=== PATIENT | female | born 2000 | race Hispanic/Latino ===

== ENCOUNTER 2019-11-17 21:04 | Emergency (ER) | payer OTHER, SELFPAY ==
[~2019-11-17] VITALS: Ht 162.6 cm; Wt 63.3 kg
[2019-11-17 21:45] LABS: BASO # 0.1 10^3/uL (0.0-0.2); BASO % 0.7 % (0.0-1.0); EOS # 0.4 10^3/uL (0.0-0.5); EOS % 5.8 % (0.0-3.0); HEMATOCRIT 37.4 % (36.0-47.0); HEMOGLOBIN 12.3 g/dl (12.0-15.5); LYMPH # 2.2 10^3/uL (1.5-5.0); LYMPH % 32.5 % (24.0-44.0); MEAN CORPUSCULAR HEMOGLOBIN 30.1 pg (27.0-33.0); MEAN CORPUSCULAR HGB CONC 32.9 g/dl (32.0-36.5); MEAN CORPUSCULAR VOLUME 91.4 fl (80.0-96.0); MONO # 0.4 10^3/uL (0.0-0.8); MONO % 5.4 % (0.0-5.0); NEUTROPHILS # 3.8 10^3/uL (1.5-8.5); NEUTROPHILS % 55.3 % (36.0-66.0); PLATELET COUNT, AUTOMATED 286 10^3/uL (150-450); RED BLOOD COUNT 4.09 10^6/uL (4.00-5.40); WHITE BLOOD COUNT 6.9 10^3/uL (4.0-10.0)
[2019-11-17] MEDS ORDERED: NS 1,000 ML IV ONE (21:45)
--- NOTE | 2019-11-17 21:53 | ECGEPIP ---
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
[2019-11-17 22:13] LABS: ALBUMIN 3.8 GM/DL (3.2-5.2); ALT/SGPT 34 U/L (12-78); BILIRUBIN,DIRECT < 0.1 MG/DL (0.0-0.2); BILIRUBIN,TOTAL 0.2 MG/DL (0.2-1.0); CK-MB VALUE MASS < 1.0 NG/ML (<3.6); CPK CREATINE PHOSPHOKINASE 61 U/L (26-192); FREE T4 1.13 NG/DL (0.78-1.33); LIPASE 118 U/L (73-393); MB/CK RELATIVE INDEX 1.64 (< OR =4); TOTAL PROTEIN 7.2 GM/DL (6.4-8.2); TROPONIN I < 0.02 NG/ML (< 0.10)
[2019-11-17 23:25] LABS: PARTIAL THROMBOPLASTIN TIME 30.3 SECONDS (25.0-38.4)
[2019-11-17 23:27] LABS: D-DIMER QUANT 371.05 ng/ml (<500)
[2019-11-17 23:28] LABS: INR 1.07; PROTHROMBIN TIME 13.6 SECONDS (11.8-14.0)
[2019-11-17] MEDS ORDERED: ONDA4TAB6 PO (23:51)
[2019-11-18 00:04] VITALS: BP 109/59
--- NOTE | 2019-11-18 08:33 | REP ---
Clinical: Chest pain . Comparison: None . Technique: PA and lateral. Findings: The mediastinum and cardiac silhouette are normal. The lung ye are clear and without acute consolidation, effusion, or pneumothorax. The skeletal structures are intact and normal. Impression: 1. No acute cardiopulmonary process. Electronically Signed by Jonathon Luna MD 11/18/2019 08:24 A
== END 2019-11-18 00:18 | disposition home or self-care (01) ==
LOC: M ED 21:04
DX: R10.9 Unspecified abdominal pain (principal); R11.2 Nausea with vomiting, unspecified; N64.4 Mastodynia; R00.0 Tachycardia, unspecified

== ENCOUNTER 2019-11-19 18:52 | Emergency (ER) | payer OTHER ==
[~2019-11-19] VITALS: Ht 162.6 cm; Wt 63.6 kg
[~2019-11-19 18:52] MED LIST: ONDA4TAB6 PO
[2019-11-19 18:53] VITALS: BP 111/68
== END 2019-11-19 19:58 | disposition left against medical advice (07) ==
LOC: M ED 18:52
DX: Z53.21 Procedure and treatment not carried out due to patient leaving prior to being seen by health care provider (principal)

== ENCOUNTER 2020-04-01 15:09 | Emergency (ER) | payer OTHER ==
[~2020-04-01] VITALS: Ht 162.6 cm; Wt 61.4 kg
[2020-04-01] MEDS ORDERED: LO LTAB PO (15:16)
--- NOTE | 2020-04-01 16:44 | REP ---
INDICATION: pain/swelling to lower extremities COMPARISON: None. TECHNIQUE: Real time compression and duplex Doppler interrogation of the bilateral lower extremity deep venous system is performed. FINDINGS: Bilaterally, the common femoral, superficial femoral and popliteal veins are fully compressible with transducer pressure and demonstrate normal spontaneous and phasic flow, without evidence of deep venous thrombosis. IMPRESSION: No evidence of deep venous thrombosis of the bilateral lower extremity femoral popliteal venous system. <Electronically signed by Ladarius Blakely > 04/01/20 1640
[2020-04-01 16:57] LABS: BASO % 0.8 % (0.0-1.0); EOS # 0.2 10^3/uL (0.0-0.5); EOS % 4.2 % (0.0-3.0); HEMATOCRIT 34.6 % (36.0-47.0); HEMOGLOBIN 11.4 g/dl (12.0-15.5); LYMPH # 1.7 10^3/uL (1.5-5.0); LYMPH % 33.2 % (24.0-44.0); MEAN CORPUSCULAR HEMOGLOBIN 29.8 pg (27.0-33.0); MEAN CORPUSCULAR HGB CONC 32.9 g/dl (32.0-36.5); MEAN CORPUSCULAR VOLUME 90.3 fl (80.0-96.0); MONO # 0.2 10^3/uL (0.0-0.8); MONO % 4.2 % (0.0-5.0); NEUTROPHILS # 2.9 10^3/uL (1.5-8.5); NEUTROPHILS % 57.4 % (36.0-66.0); PLATELET COUNT, AUTOMATED 234 10^3/uL (150-450); RED BLOOD COUNT 3.83 10^6/uL (4.00-5.40)
[2020-04-01 17:58] VITALS: BP 122/77
== END 2020-04-01 18:01 | disposition home or self-care (01) ==
LOC: M ED 15:09
DX: M79.662 Pain in left lower leg (principal); R22.42 Localized swelling, mass and lump, left lower limb; Z79.3 Long term (current) use of hormonal contraceptives

== ENCOUNTER 2020-04-30 16:53 | Emergency (ER) | payer OTHER ==
[~2020-04-30] VITALS: Ht 162.6 cm; Wt 62.5 kg
[~2020-04-30 16:53] MED LIST changes: +LO LTAB PO
[2020-04-30 17:56] LABS: BASO # 0.1 10^3/uL (0.0-0.2); BASO % 0.7 % (0.0-1.0); EOS # 0.3 10^3/uL (0.0-0.5); EOS % 4.1 % (0.0-3.0); HEMOGLOBIN 12.8 g/dl (12.0-15.5); LYMPH % 28.6 % (24.0-44.0); MEAN CORPUSCULAR HEMOGLOBIN 28.9 pg (27.0-33.0); MEAN CORPUSCULAR VOLUME 90.3 fl (80.0-96.0); MONO # 0.3 10^3/uL (0.0-0.8); MONO % 4.6 % (0.0-5.0); NEUTROPHILS # 4.3 10^3/uL (1.5-8.5); NEUTROPHILS % 61.9 % (36.0-66.0); PLATELET COUNT, AUTOMATED 280 10^3/uL (150-450); RED BLOOD COUNT 4.43 10^6/uL (4.00-5.40)
[2020-04-30 18:30] LABS: ALBUMIN 4.2 GM/DL (3.2-5.2); ALT/SGPT 16 U/L (12-78); BILIRUBIN,TOTAL 0.2 MG/DL (0.2-1.0); BLOOD UREA NITROGEN 10 MG/DL (7-18); CARBON DIOXIDE LEVEL 26 MEQ/L (21-32); CHLORIDE LEVEL 105 MEQ/L (98-107); CREATININE FOR GFR 0.71 MG/DL (0.55-1.30); GLUCOSE, FASTING 86 MG/DL (70-100); HCG, SERUM QUALITATIVE NEGATIVE (NEGATIVE); POTASSIUM SERUM 3.9 MEQ/L (3.5-5.1); SODIUM LEVEL 137 MEQ/L (136-145); TOTAL PROTEIN 7.6 GM/DL (6.4-8.2)
[2020-04-30] MEDS ORDERED: ONDA4TAB6 PO (18:50)
[2020-04-30 18:57] VITALS: BP 127/83
== END 2020-04-30 18:57 | disposition home or self-care (01) ==
LOC: M ED 16:53
DX: R11.2 Nausea with vomiting, unspecified (principal)

== ENCOUNTER → 2020-05-18 | Outpatient (CLI) | payer OTHER ==
[~2020-05-18] MED LIST changes: +AMOX875T2 PO
[2020-05-18 16:26] LABS: BASO # 0.1 10^3/uL (0.0-0.2); BASO % 1.1 % (0.0-1.0); EOS # 0.3 10^3/uL (0.0-0.5); EOS % 7.2 % (0.0-3.0); HEMATOCRIT 39.7 % (36.0-47.0); HEMOGLOBIN 12.9 g/dl (12.0-15.5); LYMPH # 1.7 10^3/uL (1.5-5.0); LYMPH % 36.6 % (24.0-44.0); MEAN CORPUSCULAR HEMOGLOBIN 29.9 pg (27.0-33.0); MEAN CORPUSCULAR HGB CONC 32.5 g/dl (32.0-36.5); MEAN CORPUSCULAR VOLUME 91.9 fl (80.0-96.0); MONO # 0.2 10^3/uL (0.0-0.8); MONO % 4.2 % (0.0-5.0); NEUTROPHILS # 2.4 10^3/uL (1.5-8.5); NEUTROPHILS % 50.9 % (36.0-66.0); PLATELET COUNT, AUTOMATED 251 10^3/uL (150-450); RED BLOOD COUNT 4.32 10^6/uL (4.00-5.40); WHITE BLOOD COUNT 4.8 10^3/uL (4.0-10.0)
[2020-05-18 16:40] LABS: ALBUMIN 3.9 GM/DL (3.2-5.2); ALT/SGPT 19 U/L (12-78); BILIRUBIN,TOTAL 0.4 MG/DL (0.2-1.0); BLOOD UREA NITROGEN 9 MG/DL (7-18); CALCIUM LEVEL 9.5 MG/DL (8.5-10.1); CARBON DIOXIDE LEVEL 28 MEQ/L (21-32); CHLORIDE LEVEL 107 MEQ/L (98-107); CREATININE FOR GFR 0.79 MG/DL (0.55-1.30); FREE T4 1.15 NG/DL (0.78-1.33); GLUCOSE, FASTING 107 MG/DL (70-100); POTASSIUM SERUM 3.9 MEQ/L (3.5-5.1); SODIUM LEVEL 139 MEQ/L (136-145); THYROID STIMULATING HORMONE 0.407 uIU/ML (0.463-3.98); TOTAL PROTEIN 7.3 GM/DL (6.4-8.2)
== END ==
LOC: M WUC 11:13
PROVIDERS: ATTEND Nurse Practitioner Family
DX: K58.1 Irritable bowel syndrome with constipation (principal)

== ENCOUNTER 2020-05-21 12:09 | Emergency (ER) | payer OTHER ==
[~2020-05-21] VITALS: Ht 162.6 cm; Wt 62.6 kg
[~2020-05-21 12:09] MED LIST changes: -AMOX875T2 PO
[2020-05-21] MEDS ORDERED: AMOX875T2 PO (12:19)
[2020-05-21] MEDS ORDERED: NS 1,000 ML IV ONE (13:30)
[2020-05-21 13:57] LABS: EOS # 0.2 10^3/uL (0.0-0.5); EOS % 4.6 % (0.0-3.0); HEMATOCRIT 38.2 % (36.0-47.0); HEMOGLOBIN 12.4 g/dl (12.0-15.5); LYMPH # 1.4 10^3/uL (1.5-5.0); LYMPH % 35.1 % (24.0-44.0); MEAN CORPUSCULAR HEMOGLOBIN 29.3 pg (27.0-33.0); MEAN CORPUSCULAR HGB CONC 32.5 g/dl (32.0-36.5); MEAN CORPUSCULAR VOLUME 90.3 fl (80.0-96.0); MONO # 0.2 10^3/uL (0.0-0.8); MONO % 4.9 % (0.0-5.0); NEUTROPHILS # 2.1 10^3/uL (1.5-8.5); NEUTROPHILS % 54.4 % (36.0-66.0); PLATELET COUNT, AUTOMATED 242 10^3/uL (150-450); RED BLOOD COUNT 4.23 10^6/uL (4.00-5.40); WHITE BLOOD COUNT 3.9 10^3/uL (4.0-10.0)
[2020-05-21 14:19] LABS: HCG, SERUM QUALITATIVE NEGATIVE (NEGATIVE)
[2020-05-21 14:24] LABS: ALBUMIN 4.1 GM/DL (3.2-5.2); ALT/SGPT 19 U/L (12-78); BILIRUBIN,TOTAL 0.3 MG/DL (0.2-1.0); BLOOD UREA NITROGEN 7 MG/DL (7-18); CALCIUM LEVEL 9.1 MG/DL (8.5-10.1); CARBON DIOXIDE LEVEL 29 MEQ/L (21-32); CHLORIDE LEVEL 106 MEQ/L (98-107); CK-MB VALUE MASS < 1.0 NG/ML (<3.6); CPK CREATINE PHOSPHOKINASE 47 U/L (26-192); CREATININE FOR GFR 0.66 MG/DL (0.55-1.30); FREE T4 1.25 NG/DL (0.78-1.33); GLUCOSE, FASTING 86 MG/DL (70-100); MAGNESIUM LEVEL 2.1 MG/DL (1.8-2.4); MB/CK RELATIVE INDEX 2.13 (< OR =4); POTASSIUM SERUM 3.9 MEQ/L (3.5-5.1); SODIUM LEVEL 141 MEQ/L (136-145); THYROID STIMULATING HORMONE 0.414 uIU/ML (0.463-3.98); TOTAL PROTEIN 7.3 GM/DL (6.4-8.2); TROPONIN I < 0.02 NG/ML (< 0.10)
--- NOTE | 2020-05-21 14:43 | REP ---
INDICATION: Syncope. COMPARISON: None. TECHNIQUE: Helical scanning is acquired. 5 mm axial images were reformatted. Coronal MPR images were generated. FINDINGS: Bone window settings demonstrate an intact bony calvarium. There is no evidence of skull fracture or incidental bony calvarial lesion. The visualized paranasal sinuses appear clear. No intraorbital abnormality is seen. On soft tissue window setting images; the lateral, third, and fourth ventricles are normal in size and position. Blakely-white differentiation pattern is normal above and below the tentorium. There are is no evidence of intracranial hemorrhage. No mass, edema, infarction, or midline shift is seen. No extra-axial fluid collection is appreciated. IMPRESSION: Negative noncontrast head CT. <Electronically signed by Polo Cochran > 05/21/20 [id number]
[2020-05-21 14:53] LABS: MONO SCRN POSITIVE (NEGATIVE)
[2020-05-21] MEDS ORDERED: ONDA4TAB6 PO (15:08)
[2020-05-21 15:15] VITALS: BP 127/65
[2020-05-22 16:08] LABS: Lyme Disease IgG/IgM Antibodie <0.91 ISR (0.00-0.90); Lyme Disease IgM Ab Quantitati <0.80 index (0.00-0.79)
--- NOTE | 2020-05-23 12:14 | ECGEPIP ---
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
== END 2020-05-21 15:36 | disposition home or self-care (01) ==
LOC: M ED 12:09
DX: B27.90 Infectious mononucleosis, unspecified without complication (principal); E05.90 Thyrotoxicosis, unspecified without thyrotoxic crisis or storm; K29.70 Gastritis, unspecified, without bleeding

== ENCOUNTER 2020-05-24 17:22 | Emergency (ER) | payer OTHER ==
[~2020-05-24] VITALS: Ht 162.6 cm; Wt 62.4 kg
[~2020-05-24 17:22] MED LIST changes: +AMOX875T2 PO
[2020-05-24 19:08] VITALS: BP 131/69
[2020-05-25] MEDS ORDERED: COLA100C5 PO (22:49)
[2020-05-25] MEDS ORDERED: MIRA3350 PO (22:49)
== END 2020-05-24 19:09 | disposition home or self-care (01) ==
LOC: M ED 17:22
DX: B27.90 Infectious mononucleosis, unspecified without complication (principal); E03.9 Hypothyroidism, unspecified

== ENCOUNTER 2020-05-25 20:08 | Emergency (ER) | payer OTHER ==
[~2020-05-25] VITALS: Ht 162.6 cm; Wt 62.3 kg
[2020-05-25] MEDS ORDERED: NS 1,000 ML IV ONE (21:00)
[2020-05-25 21:34] LABS: BASO # 0.1 10^3/uL (0.0-0.2); BASO % 0.8 % (0.0-1.0); EOS # 0.2 10^3/uL (0.0-0.5); EOS % 3.9 % (0.0-3.0); HEMATOCRIT 37.5 % (36.0-47.0); HEMOGLOBIN 12.1 g/dl (12.0-15.5); LYMPH # 2.5 10^3/uL (1.5-5.0); LYMPH % 39.8 % (24.0-44.0); MEAN CORPUSCULAR HEMOGLOBIN 29.2 pg (27.0-33.0); MEAN CORPUSCULAR HGB CONC 32.3 g/dl (32.0-36.5); MEAN CORPUSCULAR VOLUME 90.4 fl (80.0-96.0); MONO # 0.4 10^3/uL (0.0-0.8); MONO % 5.7 % (0.0-5.0); NEUTROPHILS # 3.1 10^3/uL (1.5-8.5); NEUTROPHILS % 49.6 % (36.0-66.0); PLATELET COUNT, AUTOMATED 245 10^3/uL (150-450); RED BLOOD COUNT 4.15 10^6/uL (4.00-5.40); WHITE BLOOD COUNT 6.2 10^3/uL (4.0-10.0)
[2020-05-25 21:50] LABS: INR 1.05; PROTHROMBIN TIME 13.9 SECONDS (12.5-14.3)
[2020-05-25 21:51] LABS: PARTIAL THROMBOPLASTIN TIME 30.6 SECONDS (24.2-38.5)
[2020-05-25 21:55] LABS: ALT/SGPT 19 U/L (12-78); BILIRUBIN,DIRECT < 0.1 MG/DL (0.0-0.2); BILIRUBIN,TOTAL 0.2 MG/DL (0.2-1.0); BLOOD UREA NITROGEN 10 MG/DL (7-18); CALCIUM LEVEL 9.1 MG/DL (8.5-10.1); CARBON DIOXIDE LEVEL 27 MEQ/L (21-32); CHLORIDE LEVEL 107 MEQ/L (98-107); CREATININE FOR GFR 0.77 MG/DL (0.55-1.30); GLUCOSE, FASTING 85 MG/DL (70-100); POTASSIUM SERUM 3.9 MEQ/L (3.5-5.1); SODIUM LEVEL 141 MEQ/L (136-145); TOTAL PROTEIN 7.5 GM/DL (6.4-8.2)
[2020-05-25] MEDS ORDERED: ISOVUE-370 76% 100ML VIAL As Ordered ONE (22:02)
--- NOTE | 2020-05-25 22:42 | REPVR ---
PROCEDURE INFORMATION: Exam: CT Abdomen And Pelvis With Contrast Exam date and time: 05/25/2020 10:17 PM Age: 19 years old Clinical indication: Other: Rectal bleeding TECHNIQUE: Imaging protocol: Computed tomography of the abdomen and pelvis with intravenous contrast. Radiation optimization: All CT scans at this facility use at least one of these dose optimization techniques: automated exposure control; mA and/or kV adjustment per patient size (includes targeted exams where dose is matched to clinical indication); or iterative reconstruction. Contrast material: ISOVUE 370; Contrast volume: 100 ml; Contrast route: INTRAVENOUS (IV); COMPARISON: No relevant prior studies available. FINDINGS: Liver: Normal. No mass. Gallbladder and bile ducts: The gallbladder is incompletely distended. This is most likely related to incomplete fasting. Clinical correlation to exclude gallbladder pathology suggested. Pancreas: Normal. No ductal dilation. Spleen: Normal. No splenomegaly. Adrenal glands: Normal. No mass. Kidneys and ureters: Normal. No hydronephrosis. Stomach and bowel: There is increased feces throughout the colon consistent with constipation. Appendix: No evidence of appendicitis. Intraperitoneal space: There is minimal fluid in the cul-de-sac most likely physiologic. Clinical correlation to exclude other causes of cul-de-sac fluid suggested. Vasculature: Unremarkable. No abdominal aortic aneurysm. Lymph nodes: Unremarkable. No enlarged lymph nodes. Urinary bladder: Unremarkable as visualized. Reproductive: 3.5 cm cyst left ovary likely functional. Bones/joints: Unremarkable. No acute fracture. Soft tissues: Unremarkable. IMPRESSION: 1. The gallbladder is incompletely distended. This is most likely related to incomplete fasting. Clinical correlation to exclude gallbladder pathology suggested. 2. 3.5 cm cyst left ovary likely functional. 3. There is increased feces throughout the colon consistent with constipation. Electronically signed by: Gio Hudson On 05/25/2020 22:42:36 PM
[2020-05-25] MEDS ORDERED: COLA100C5 PO (22:49)
[2020-05-25] MEDS ORDERED: MIRA3350 PO (22:49)
[2020-05-25 23:12] VITALS: BP 120/70
== END 2020-05-25 23:13 | disposition home or self-care (01) ==
LOC: M ED 20:08
DX: K59.00 Constipation, unspecified (principal); K62.5 Hemorrhage of anus and rectum; E05.90 Thyrotoxicosis, unspecified without thyrotoxic crisis or storm; K29.70 Gastritis, unspecified, without bleeding
CPT/HCPCS: 74177; 80048; 80076; 84702; 85025; 85610; 85730; 96360; 96361; 99284; Q9967

== ENCOUNTER → 2020-06-07 | Emergency (ER) | payer OTHER ==
[~2020-06-07] VITALS: Ht 162.6 cm; Wt 62.7 kg
[~2020-06-07] MED LIST changes: +COLA100C5 PO; +KEFL500C17 PO; +MIRA3350 PO
[2020-06-07 13:30] VITALS: BP 119/71
== END | disposition home or self-care (01) ==
LOC: M ED 13:29
DX: J02.0 Streptococcal pharyngitis (principal)

== ENCOUNTER 2020-06-10 12:31 | Emergency (ER) | payer OTHER ==
[~2020-06-10] VITALS: Ht 162.6 cm; Wt 61.8 kg
[2020-06-10] MEDS ORDERED: ZOFR4TAB16 PO (15:49)
[2020-06-10 16:01] VITALS: BP 104/61
== END 2020-06-10 16:03 | disposition home or self-care (01) ==
LOC: M ED 12:31
DX: R11.2 Nausea with vomiting, unspecified (principal); J02.0 Streptococcal pharyngitis; K29.70 Gastritis, unspecified, without bleeding

== ENCOUNTER 2020-06-11 11:10 | Emergency (ER) | payer OTHER ==
[~2020-06-11] VITALS: Ht 162.6 cm; Wt 67.9 kg
[2020-06-11 11:10] VITALS: BP 126/76
[~2020-06-11 11:10] MED LIST changes: +ZOFR4TAB16 PO
[2020-06-11 11:51] LABS: EOS # 0.2 10^3/uL (0.0-0.5); EOS % 5.3 % (0.0-3.0); HEMATOCRIT 38.4 % (36.0-47.0); HEMOGLOBIN 12.3 g/dl (12.0-15.5); LYMPH # 1.6 10^3/uL (1.5-5.0); LYMPH % 40.7 % (24.0-44.0); MEAN CORPUSCULAR HEMOGLOBIN 28.7 pg (27.0-33.0); MEAN CORPUSCULAR VOLUME 89.5 fl (80.0-96.0); MONO # 0.1 10^3/uL (0.0-0.8); MONO % 2.8 % (0.0-5.0); NEUTROPHILS % 50.2 % (36.0-66.0); PLATELET COUNT, AUTOMATED 264 10^3/uL (150-450); RED BLOOD COUNT 4.29 10^6/uL (4.00-5.40)
[2020-06-11] MEDS ORDERED: NS 1,000 ML IV ONE (12:00)
--- NOTE | 2020-06-11 12:25 | REP ---
INDICATION: vomiting after eating, concern gallstones COMPARISON: None. TECHNIQUE: Real time chau scale ultrasound examination using curved array transducer. FINDINGS: Liver and pancreas are normal in contour, size, and echogenicity without focal hepatic or pancreatic lesions identified. The gallbladder is normal and without gallstones, wall thickening, or pericholecystic fluid. No biliary ductal dilatation is appreciated and the common bile duct measures 3.1 mm diameter. Right kidney is normal in reniform shape without hydronephrosis and measures 9.9 x 5.2 x 3.4 cm. No ascites in the visualized right upper quadrant. IMPRESSION: Normal limited right upper quadrant ultrasound <Electronically signed by Jonathon Luna > 06/11/20 [id number]
[2020-06-11 12:40] LABS: HCG, SERUM QUALITATIVE NEGATIVE (NEGATIVE)
[2020-06-11 12:42] LABS: ALBUMIN 4.3 GM/DL (3.2-5.2); ALT/SGPT 19 U/L (12-78); BILIRUBIN,DIRECT < 0.1 MG/DL (0.0-0.2); BILIRUBIN,TOTAL 0.4 MG/DL (0.2-1.0); BLOOD UREA NITROGEN 10 MG/DL (7-18); CALCIUM LEVEL 9.3 MG/DL (8.5-10.1); CARBON DIOXIDE LEVEL 26 MEQ/L (21-32); CHLORIDE LEVEL 109 MEQ/L (98-107); CREATININE FOR GFR 0.71 MG/DL (0.55-1.30); GLUCOSE, FASTING 105 MG/DL (70-100); LIPASE 108 U/L (73-393); POTASSIUM SERUM 4.5 MEQ/L (3.5-5.1); SODIUM LEVEL 140 MEQ/L (136-145); TOTAL PROTEIN 7.6 GM/DL (6.4-8.2)
== END 2020-06-11 13:12 | disposition home or self-care (01) ==
LOC: M ED 11:10
DX: R11.2 Nausea with vomiting, unspecified (principal)

== ENCOUNTER 2020-06-21 17:38 | Emergency (ER) | payer OTHER ==
[~2020-06-21] VITALS: Ht 162.6 cm; Wt 63.6 kg
--- OUTSIDE RECORDS SUMMARY | 2020-06-21 17:44 | CCD ---
Author Author [facility] Organization [facility] Address Unknown Phone Unavailable Support Name Relationship Address Phone UE Next Of Kin Unknown Unavailable ANNE ALEXIS Next Of Kin [address] [place] [address] Re-disclosure Warning The records that you are about to access may contain information from federally-assisted alcohol or drug abuse programs. If such information is present, then the following federally mandated warning applies: This information has been disclosed to you from records protected by federal confidentiality rules (42 CFR part 2). The federal rules prohibit you from making any further disclosure of this information unless further disclosure is expressly permitted by the written consent of the person to whom it pertains or as otherwise permitted by 42 CFR part 2. A general authorization for the release of medical or other information is NOT sufficient for this purpose. The Federal rules restrict any use of the information to criminally investigate or prosecute any alcohol or drug abuse patient.The records that you are about to access may contain highly sensitive health information, the redisclosure of which is protected by Article 27-F of the [facility] Public Health law. If you continue you may have access to information: Regarding HIV / AIDS; Provided by facilities licensed or operated by the [facility] Office of Mental Health; or Provided by the [facility] Office for People With Developmental Disabilities. If such information is present, then the following [facility] mandated warning applies: This information has been disclosed to you from confidential records which are protected by state law. State law prohibits you from making any further disclosure of this information without the specific written consent of the person to whom it pertains, or as otherwise permitted by law. Any unauthorized further disclosure in violation of state law may result in a fine or retirement sentence or both. A general authorization for the release of medical or other information is NOT sufficient authorization for further disc losure. Insurance Providers Payer name Policy type / Coverage type Policy ID Covered democrat ID Covered democrat's relationship to ly Policy Ly Plan Information [facility][NOTE 3] [id number] SP [id number] [facility] O [id number] S [id number] O UNAVAILABLE UNAVAILA BLE [facility][NOTE 3] [id number] SP [id number] [employer] [id number] SP [id number] [employer] O [id number] O [id number] SELF PAY ONLY [id number] SP [id number]
--- OUTSIDE RECORDS SUMMARY | 2020-06-21 18:50 | CCD ---
Author Author [facility] Organization [facility] Address Unknown Phone Unavailable Support Name Relationship Address Phone UE Next Of Kin Unknown Unavailable ANNE ALEXSI Next Of Kin [address] [place] [address] Re-disclosure Warning The records that you are [...] is protected by Article 27-F of the [facility] Public Health law. If you continue you may have access to information: Regarding HIV / AIDS; Provided by facilities licensed or operated by the [facility] Office of Mental Health; or Provided by the [facility] Office for People With Developmental Disabilities. If such information is present, then the following [facility] mandated warning applies: This information has been [...] law may result in a fine or half-way sentence or both. A general authorization for the release of medical or other information is NOT sufficient authorization for further disc losure. Insurance Providers Payer name Policy type / Coverage type Policy ID Covered republican ID Covered republican's relationship to ly Policy Ly Plan Information [facility] [id number] SP [id number] [facility] O [id number] S [id number] O UNAVAILABLE UNAVAILA BLE [facility] [id number] SP [id number] [employer] [id number] SP [id number] [employer] O [id number] O [id number] SELF PAY ONLY [id number] SP [id number]
[2020-06-21 20:04] LABS: BASO # 0.1 10^3/uL (0.0-0.2); BASO % 0.9 % (0.0-1.0); EOS # 0.3 10^3/uL (0.0-0.5); EOS % 5.2 % (0.0-3.0); HEMOGLOBIN 11.8 g/dl (12.0-15.5); LYMPH # 2.3 10^3/uL (1.5-5.0); LYMPH % 38.7 % (24.0-44.0); MEAN CORPUSCULAR HEMOGLOBIN 29.2 pg (27.0-33.0); MEAN CORPUSCULAR HGB CONC 31.9 g/dl (32.0-36.5); MEAN CORPUSCULAR VOLUME 91.6 fl (80.0-96.0); MONO # 0.3 10^3/uL (0.0-0.8); MONO % 4.8 % (0.0-5.0); NEUTROPHILS # 2.9 10^3/uL (1.5-8.5); NEUTROPHILS % 50.2 % (36.0-66.0); PLATELET COUNT, AUTOMATED 222 10^3/uL (150-450); RED BLOOD COUNT 4.04 10^6/uL (4.00-5.40); WHITE BLOOD COUNT 5.8 10^3/uL (4.0-10.0)
[2020-06-21 20:25] LABS: HCG, SERUM QUALITATIVE NEGATIVE (NEGATIVE)
[2020-06-21 20:30] LABS: BLOOD UREA NITROGEN 9 MG/DL (7-18); CARBON DIOXIDE LEVEL 29 MEQ/L (21-32); CHLORIDE LEVEL 108 MEQ/L (98-107); CREATININE FOR GFR 0.66 MG/DL (0.55-1.30); GLUCOSE, FASTING 85 MG/DL (70-100); POTASSIUM SERUM 3.9 MEQ/L (3.5-5.1); SODIUM LEVEL 142 MEQ/L (136-145)
--- NOTE | 2020-06-21 21:11 | REPVR ---
PROCEDURE INFORMATION: Exam: US Pelvis Complete, Transabdominal and US Pelvis, Transvaginal and US Duplex Artery and Vein, Ovaries, Complete Exam date and time: 06/21/2020 8:30 PM Age: 19 years old Clinical indication: Pelvic pain and vaginal pain; Additional info: Pelvic cramping TECHNIQUE: Imaging protocol: Real-time transabdominal and transvaginal pelvic ultrasound (complete) with image documentation. Transvaginal imaging was used for better evaluation of the endometrium, adnexa, and/or cervix. Real-time duplex ultrasound scan of the arterial and venous flow of the ovaries with B-mode, color Doppler flow and spectral waveform analysis. COMPARISON: CT ABD/PEL W/IV CONTRAST ONLY 05/25/2020 10:02 PM FINDINGS: Uterus/cervix: 6.9 x 3.6 x 4.4 cm. Normal endometrial thickness, measuring approximately 9 mm. Right ovary: 5.1 x 3 x 4.4 cm. 4.3 x 3.2 x 3.3 cm complex cystic lesion with internal septations and low-level internal echoes, compatible with a hemorrhagic cyst. No solid mass. Normal ovarian blood flow. Left ovary: 2.6 x 1.3 x 3.1 cm. No mass. Normal ovarian blood flow. Intraperitoneal space: Small free pelvic fluid, likely reactive. Urinary bladder: Normal. IMPRESSION: 4.3 x 3.2 x 3.3 cm complex right ovarian cystic lesion with internal septations and low-level internal echoes, compatible with a hemorrhagic cyst. Electronically signed by: Alfredito Olsen On 06/21/2020 21:11:33 PM
[2020-06-21 21:26] LABS: CHLAMYDIA DNA AMPLIFICATION NEGATIVE (NEGATIVE); GC DNA AMPLIFICATION NEGATIVE (NEGATIVE)
[2020-06-21 21:55] VITALS: BP 132/66
--- NOTE | 2020-06-22 11:50 | ED PDOC ---
Post-Departure Follow-Up dr pinto and zaire silverio faxd formal report of pelvic us for fu Jeni Faye MD Jun 22, 2020 11:50
== END 2020-06-21 21:56 | disposition home or self-care (01) ==
LOC: M ED 17:38
DX: N89.8 Other specified noninflammatory disorders of vagina (principal); N83.201 Unspecified ovarian cyst, right side; R10.2 Pelvic and perineal pain; Z87.42 Personal history of other diseases of the female genital tract; Z98.890 Other specified postprocedural states; Z87.19 Personal history of other diseases of the digestive system

== ENCOUNTER 2020-07-07 14:10 | Emergency (ER) | payer OTHER ==
[~2020-07-07] VITALS: Ht 162.6 cm; Wt 63.0 kg
--- OUTSIDE RECORDS SUMMARY | 2020-07-07 14:36 | CCD | Continuity of Care Document ---
Author Author Roberto OLIVER PA Organization Unknown Address [address] [place] [address] [place] [address] Phone [phone] Care Team Providers Care Neuropsychiatrist Name Role Phone [facility] - Family Medicine [facility] [phone] [facility] [phone] Problems Description No Information Available Social History Type Date Description Comments Sex Unknown Tobacco Use Start: Unknown The patient has never vaped Tobacco Use Start: Unknown Patient has never smoked Smoking Status Reviewed: 06/22/20 Patient has never smoked Allergies, Adverse Reactions, Alerts Description No Known Drug Allergies Medications Description No Active Medications Immunizations Description No Information Available Vital Signs Date Vital Result Comment 06/22/2020 3:00pm BP Systolic 106 mmHg BP Diastolic 71 mmHg Heart Rate 93 /min Respiratory Rate 16 /min O2 % BldC Oximetry 98 % Body Temperature 98.2 F Weight 142.00 lb Height 64 inches 5'4" BMI (Body Mass Index) 24.4 kg/m2 Pain Level 4 Results Description No Information Available Procedures Description No Information Available Medical Devices Description No Information Available Encounters Type Date Location Provider Dx Diagnosis Office Visit 06/22/2020 3:15p Main Office FAVIAN Concepcion R51.9 Headache, unspecified Z20.828 Contact w and exposure to ot h viral communicable diseases Assessments Date Code Description Provider 06/22/2020 R51.9 Headache, unspecified FAVIAN Concepcion 06/22/2020 Z20.828 Contact with and (martin spected) exposure to other viral communicable diseases FAVIAN Concepcion Plan of Treatment No Information Available Functional Status Description No Information Available Mental Status Description No Information Available Referrals Description No Information Available
--- OUTSIDE RECORDS SUMMARY | 2020-07-07 14:36 | CCD | Continuity of Care Document ---
Author Author Roberto CARDENAS PA Organization Unknown Address [address] [place] [address] Phone [phone] Care Team Providers Care Kitchen Food Assembler Name Role Phone [facility] Problems Description No Information Available Social History Type Date Description Comments Sex Unknown Tobacco Use Start: Unknown Never Used Smokeless Tobacco ETOH Use Denies alcohol use Tobacco Use Start: Unknown Patient has never smoked Recreational Drug Use Denies Drug Use Smoking Status Reviewed: 06/22/20 Patient has never smoked Exercise Type/Frequency Exercises sporadically Tattoo/Piercing Tattoo 2 Tattoo/Piercing Pierced ears Sun Exposure Moderate amount of sun exposure Sun Exposure Has experienced blistering from sunburns Sun Exposure No history of sunburn Sun Exposure Uses sunscreen Sun Exposure Uses greater than 30 SPF Sun Exposure Does not use tanning beds Seat Belt/Car Seat Always uses seat belt Bike Helmet Never Smoke Alarms Yes Smoke Alarms Carbon Monoxide Detector: Yes Allergies, Adverse Reactions, Alerts Description No Known Drug Allergies Medications Active Medications SIG Qnty Indications Ordering Provide r Date Docusate Sodium 100mg Capsules 1 by mouth twice a day 60caps K58.1 Mckenzie Warren FNP 05/13/2020 Miralax 17gm Packet one packet daily, mix in water Unknown History Medications Amoxicillin/Clavulanate Potassium 875-125mg Tablets 1 by mouth twice a day for 10 days 20tabs J01.90 Mckenzie Amezquita ch, FNP 05/19/2020 - 05/27/2020 No Active Medications Unknown 03/2020 - 05/13/2020 Immunizations CPT Code Status Date Vaccine Lot # [id number] Given 06/22/2020 Influenza Virus Vaccine, Quadrivalent,age 3 and up,multidose vial Vital Signs Date Vital Result Comment 06/22/2020 1:33pm BP Systolic 118 mmHg BP Diastolic 68 mmHg Heart Rate 82 /min Body Temperature 98.5 F Respiratory Rate 16 /min Height 64.25 inches 5'4.25" Weight 142.38 lb O2 % BldC Oximetry 98 % Peak Expiratory Flow Rate 402 Estimated Peak Flow Rate [place] Body Weight 120 lb BMI (Body Mass Index) 24.2 kg/m2 06/14/2020 11:00am BP Systolic 113 mmHg BP Diastolic 59 mmHg Heart Rate 81 /min Body Temperature 98.0 F Respiratory Rate 16 /min Height 64.25 inches 5'4.25" Weight 137.12 lb O2 % BldC Oximetry 99 % Peak Expiratory Flow Rate 402 Estimated Peak Flow Rate [place] Body Weight 120 lb BMI (Body Mass Index) 23.4 kg/m2 Results Test Acquired Date Facility Test Result H/L Range Note Ua W/ Reflex To Culture 06/21/2020 [place] [address] [phone] Appearance, Urine RFX HAZY Normal Clear Color, Urine RFX YELLOW Normal Yellow PH,Urine RFX 7.0 units Normal 5.0-9.0 Specific [place] Ur Auto RFX 1.016 Normal 1.002-1.035 Protein, Urine Auto RFX NEGATIVE mg/dL Normal Negative Glucose, Urine (Ua) Auto RFX NEGATIVE mg/dL Normal Negative Ketone, Urine Auto RFX NEGATIVE mg/dL Normal Negative Urobilinogen, Urine Auto RFX 0.2 mg/dL Normal 0.0-2.0 Bilirubin, Urine Auto RFX NEGATIVE Normal Negative Nitrite, Urine Auto RFX NEGATIVE Normal Negative Leukocyte Esterase Ur Auto RFX NEGATIVE Normal Negative Blood, Urine Blood RFX NEGATIVE Normal Negative WBC, Urine Auto RFX 0 /HPF Normal 0-3 RBC, Urine Auto RFX 0 /HPF Normal 0-3 Bacteria, Urine Auto RFX 1+ High Negative Squam Epithelial Cell Ur Aurfx 6 /HPF Normal 0-6 Mucus, Urine RFX SMALL Normal Negative Hyaline Cast, Urine Auto RFX 0 /LPF Normal 0-1 CBC With Differential 06/21/2020 [place] [address] [phone] White Blood Count 5.8 10 Normal 4.0-10.0 Red Blood Count 4.04 10 Normal 4.00-5.40 Hemoglobin 11.8 g/dL Low 12.0-15.5 Hematocrit 37.0 % Normal 36.0-47.0 Mean Corpuscular Volume 91.6 fl Normal 80.0-96.0 Mean Corpuscular Hemoglobin 29.2 pg Normal 27.0-33.0 Mean Corpuscular HGB Conc 31.9 g/dL Low 32.0-36.5 Red Cell Distribution Width 12.2 % Normal 11.5-14.5 Platelet Count, Automated 222 10 Normal 150-450 Neutrophils % 50.2 % Normal 36.0-66.0 Lymph % 38.7 % Normal 24.0-44.0 [place] % 4.8 % Normal 0.0-5.0 Eos % 5.2 % High 0.0-3.0 Baso % 0.9 % Normal 0.0-1.0 Immature Granulocyte % 0.2 % Normal 0-3.0 Nucleated Red Blood Cell % 0.0 % Normal 0-0 Neutrophils # 2.9 10 Normal 1.5-8.5 Lymph # 2.3 10 Normal 1.5-5.0 [place] # 0.3 10 Normal 0.0-0.8 Eos # 0.3 10 Normal 0.0-0.5 Baso # 0.1 10 Normal 0.0-0.2 Basic Metabolic Profile 06/21/2020 Patient Service [place] [id number] [phone] Glucose, Fasting 85 mg/dL Normal 70-100 Blood Urea Nitrogen 9 mg/dL Normal 7-18 Creatinine For GFR 0.66 mg/dL Normal 0.55-1.30 Sodium Level 142 mEq/L Normal 136-145 Potassium Serum 3.9 mEq/L Normal 3.5-5.1 Chloride Level 108 mEq/L High 98-107 Carbon Dioxide Level 29 mEq/L Normal 21-32 Anion Gap 5 mEq/L Low 8-16 Calcium Level 9.0 mg/dL Normal 8.5-10.1 Laboratory test finding 06/21/2020 [facility] [place], [place] [id number] [phone] HCG Serum Qualitative NEGATIVE Normal Negative 1 Chlamydia, GC & Trich Amp 06/21/2020 [place] [address] [phone] Chlamydia Dna Amplification NEGATIVE Normal Nega tive 2 GC Dna Amplification NEGATIVE Normal Negative 3 Trichomonas vaginalis (Amp) NOT DETECTED Normal Negative 4 Wet [place] Trichomonas 06/21/2020 [place] [address] [phone] Wet Prep WET PREP RESULT Normal 5 Laboratory test finding 05/25/2020 [place] [address] [phone] iSTAT B-hCG < 5.0 Normal 6 Comprehensive Metabolic Profil 05/18/2020 [facility] [phone] Glucose, Fasting 107 mg/dL High 70-100 Blood Urea Nitrogen 9 mg/dL Normal 7-18 Creatinine For GFR 0.79 mg/dL Normal 0.55-1.30 Sodium Level 139 mEq/L Normal 136-145 Potassium Serum 3.9 mEq/L Normal 3.5-5.1 Chloride Level 107 mEq/L Normal 98-107 Carbon Dioxide Level 28 mEq/L Normal 21-32 Anion Gap 4 mEq/L Low 8-16 Calcium Level 9.5 mg/dL Normal 8.5-10.1 Ast/Sgot 8 U/L Normal 7-37 Alt/SGPT 19 U/L Normal 12-78 Alkaline Phosphatase 70 U/L Normal 45-117 Bilirubin,Total 0.4 mg/dL Normal 0.2-1.0 Total Protein 7.3 GM/DL Normal 6.4-8.2 Albumin 3.9 GM/DL Normal 3.2-5.2 Albumin/Globulin Ratio 1.1 Low 1.2-2.2 CBC With Differential 05/18/2020 [facility] [phone] White Blood Count 4.8 10 Normal 4.0-10.0 Red Blood Count 4.32 10 Normal 4.00-5.40 Hemoglobin 12.9 g/dL Normal 12.0-15.5 Hematocrit 39.7 % Normal 36.0-47.0 Mean Corpuscular Volume 91.9 fl Normal 80.0-96.0 Mean Corpuscular Hemoglobin 29.9 pg Normal 27.0-33.0 Mean Corpuscular HGB Conc 32.5 g/dL Normal 32.0-36.5 Red Cell Distribution Width 11.9 % Normal 11.5-14.5 Platelet Count, Automated 251 10 Normal 150-450 Neutrophils % 50.9 % Normal 36.0-66.0 Lymph % 36.6 % Normal 24.0-44.0 [place] % 4.2 % Normal 0.0-5.0 Eos % 7.2 % High 0.0-3.0 Baso % 1.1 % High 0.0-1.0 Immature Granulocyte % 0.0 % Normal 0-3.0 Nucleated Red Blood Cell % 0.0 % Normal 0-0 Neutrophils # 2.4 10 Normal 1.5-8.5 Lymph # 1.7 10 Normal 1.5-5.0 [place] # 0.2 10 Normal 0.0-0.8 Eos # 0.3 10 Normal 0.0-0.5 Baso # 0.1 10 Normal 0.0-0.2 TSH And T4 Free ([facility]) 05/18/2020 [facility] [phone] Thyroid Stimulating Hormone 0.407 uIU/ML Low 0. 463-3.98 7 Free T4 1.15 ng/dL Normal 0.78-1.33 8 Laboratory test finding 05/18/2020 [facility] [phone] Tissue Transglutaminase IgA <2 U/mL Normal 0-3 9 1 note:<nlbl:demographic_chang ed> 2 A negative test result does not exclude the possibility of infection because test results may be affected by improper specimen collection, technical error, specimen mix-up, concurrent antibiotic therapy, or the number of organisms in the specimen which may be below the sensitivity of the test. 3 A negative test result does not exclude the possibility of infection because test results may be affected by improper specimen collection, technical error, specimen mix-up, concurrent antibiotic therapy, or the number of organisms in the specimen which may be below the sensitivity of the test. 4 A negative test result does not exclude the possibility of infection because test results may be affected by improper specimen collection, technical error, sample mix-up, or because the number of organisms in the sample is below the limit of detection of the test. 5 MANY EPITHELIAL CELLS PRESEN T MODERATE LONG RODS PRESENT MODERATE SHORT RODS PRESENT MODERATE WBC FEW RBC 6 QUANTITATIVE RESULT QUALITATIVE INTERPRETATION <5.0 IU/L NEGATIVE 5.0 - 25.0 IU/L INDETER MINATE >25.0 IU/L POSITIVE 7 note:<nlbl:demographic_chang ed> 8 note:<nlbl:demographic_chang ed> 9 Negative 0 - 3 Weak Positive 4 - 10 Positive >10 . Tissue Transglutaminase (tTG) has been identified as the endomysial antigen. Studies have demonstr- ated that endomysial IgA antibodies have over 99% specificity for gluten sensitive enteropathy. Performed at: RN - [facility] [address] [id number] Energy Efficiency Finance Manager: Wen Webb MD, Phone: [phone] Procedures Date Code Description Status 05/13/2020 08421 Brief Emotional/Beha v Assessment W/ Scoring Doc Per Standard Inst Completed Medical Devices Description No Information Available Encounters Type Date Location Provider Dx Diagnosis Office Visit 06/22/2020 1:30p Main Office Mckenzie Warren FNP Z71.1 Person w feared hlth complaint in whom no diagnosis is made Office Visit 06/14/2020 10:45a Main Office Mckenzie Warren FNP J02.9 Acute pharyngitis, unspecified Office Visit 05/27/2020 9:30a Main Office Mckenzie Warren FNP K59.0 0 Constipation, unspecified B27.80 Other infectious mononucleos is without complication Office Visit 05/19/2020 11:45a Main Office Mckenzie Warren FNP J01.9 0 Acute sinusitis, unspecified Office Visit 05/13/2020 1:30p Main Office Mckenzie Warren FNP K58.1 Irritable bowel syndrome with constipation L30.1 Dyshidrosis [pompholyx] Z13.89 Encounter for screening for other disorder Assessments Date Code Description Provider 06/22/2020 Z71.1 Person with feared h ealth complaint in whom no diagnosis is made Mckenzie Warren FNP 06/14/2020 J02.9 Acute pharyngitis, unspecified P Mckenzie ledesma OCCUPATIONAL THERAPY DEPARTMENT CHAIR 05/27/2020 K59.00 Constipation, unspecified Pleska chMckenzie, OCCUPATIONAL THERAPY DEPARTMENT CHAIR 05/27/2020 B27.80 Other infectious mononucleosis w ithout complication Mckenzie Warren FNP 05/19/2020 J01.90 Acute sinusitis, unspecified Ple Mckenzie blanco, OCCUPATIONAL THERAPY DEPARTMENT CHAIR 05/13/2020 K58.1 Irritable bowel syndrome with co nstipation Mckenzie Warren FNP 05/13/2020 L30.1 Dyshidrosis [pompholyx] Mckenzie Warren FNP 05/13/2020 Z13.89 Encounter for screening for othe r disorder Mckenzie Warren FNP Plan of Treatment Future Appointment(s):* 08/25/2020 2:00 pm - Mckenzie Warren FNP at Main Office 06/22/2020 - Mckenzie Warren FNP* Z71.1 Person with feared health complaint in whom no diagnosis is made* Comments:* reassured patient that the abnormalities seen in her labs are completely benign, there is no cause for concern. Encouraged to keep her appointments with GI and RODDING ANODE WORKER this week. Functional Status Functional Condition Comment Date Status Glasses Active Independent with all ADL's Activ e Independent with all IADL's Acti ve Mental Status Mental Condition Comment Date Status None Active Can Understand Information Activ e Referrals Refer to Reason for Referral Status Appt Date [facility] U PSET Scheduled 06/23/[address] [place] [phone]
--- OUTSIDE RECORDS SUMMARY | 2020-07-07 14:36 | CCD | Continuity of Care Document ---
Author Author Roberto CARDENAS PA Organization Unknown Address [address] [place] [address] Phone [phone] Care Team Providers Care Freight Separator Name Role Phone [facility] [phone] Problems Description No Information Available Social History [...] CPT Code Status Date Vaccine Lot # [id number] Given 06/22/2020 Influenza Virus Vaccine, Quadrivalent,age 3 and up,multidose vial Vital Signs Date Vital Result Comment 06/22/2020 1:33pm BP Systolic 118 mmHg BP Diastolic 68 mmHg Heart Rate 82 /min Body Temperature 98.5 F Respiratory Rate 16 /min Height 64.25 inches 5'4.25" Weight 142.38 lb O2 % BldC Oximetry 98 % Peak Expiratory Flow Rate 402 Estimated Peak Flow Rate [place] Body Weight 120 lb BMI (Body Mass Index) 24.2 kg/m2 06/14/2020 11:00am BP Systolic 113 mmHg BP Diastolic 59 mmHg Heart Rate 81 /min Body Temperature 98.0 F Respiratory Rate 16 /min Height 64.25 inches 5'4.25" Weight 137.12 lb O2 % BldC Oximetry 99 % Peak Expiratory Flow Rate 402 Estimated Peak Flow Rate [place] Body Weight 120 lb BMI (Body Mass Index) 23.4 kg/m2 Results Test Acquired Date Facility Test Result H/L Range Note Ua W/ Reflex To Culture 06/21/2020 [place] [address] [phone] Appearance, Urine RFX HAZY Normal Clear Color, Urine RFX YELLOW Normal Yellow PH,Urine RFX 7.0 units Normal 5.0-9.0 Specific [place] Ur Auto RFX 1.016 Normal 1.002-1.035 Protein, [...] 0-1 CBC With Differential 06/21/2020 [place] [address] [phone] White Blood Count 5.8 10 Normal 4.0-10.0 [...] 36.0-66.0 Lymph % 38.7 % Normal 24.0-44.0 [place] % 4.8 % Normal 0.0-5.0 Eos % 5.2 % High 0.0-3.0 Baso % 0.9 % Normal 0.0-1.0 Immature Granulocyte % 0.2 % Normal 0-3.0 Nucleated Red Blood Cell % 0.0 % Normal 0-0 Neutrophils # 2.9 10 Normal 1.5-8.5 Lymph # 2.3 10 Normal 1.5-5.0 [place] # 0.3 10 Normal 0.0-0.8 Eos # 0.3 10 Normal 0.0-0.5 Baso # 0.1 10 Normal 0.0-0.2 Basic Metabolic Profile 06/21/2020 Patient Service [place] 1356777 [phone] Glucose, Fasting 85 mg/dL Normal 70-100 Blood [...] Laboratory test finding 06/21/2020 [facility] [place], [place] [id number] [phone] HCG Serum Qualitative NEGATIVE Normal Negative 1 Chlamydia, GC & Trich Amp 06/21/2020 [place] [address] [phone] Chlamydia Dna Amplification NEGATIVE Normal Nega tive 2 GC Dna Amplification NEGATIVE Normal Negative 3 Trichomonas vaginalis (Amp) NOT DETECTED Normal Negative 4 Wet [place] Trichomonas 06/21/2020 Patient Service Ce nter [place] [address]607 [phone] Wet Prep WET PREP RESULT Normal 5 Urine Culture 06/21/2020 [place] [address] [phone] Urine Culture FULL REPORT IN L <SEE NOTE> Normal 6 Laboratory test finding 05/25/2020 [facility] [place] [address]604 [phone] iSTAT B-hCG < 5.0 Normal 7 Comprehensive Metabolic Profil 05/18/2020 [facility] [phone] Glucose, Fasting 107 mg/dL High 70-100 Blood [...] 1.1 Low 1.2-2.2 CBC With Differential 05/18/2020 [facility] [phone] White Blood Count 4.8 10 Normal 4.0-10.0 [...] 36.0-66.0 Lymph % 36.6 % Normal 24.0-44.0 [place] % 4.2 % Normal 0.0-5.0 Eos % 7.2 % High 0.0-3.0 Baso % 1.1 % High 0.0-1.0 Immature Granulocyte % 0.0 % Normal 0-3.0 Nucleated Red Blood Cell % 0.0 % Normal 0-0 Neutrophils # 2.4 10 Normal 1.5-8.5 Lymph # 1.7 10 Normal 1.5-5.0 [place] # 0.2 10 Normal 0.0-0.8 Eos # 0.3 10 Normal 0.0-0.5 Baso # 0.1 10 Normal 0.0-0.2 TSH And T4 Free ([facility]) 05/18/2020 [facility] [phone] Thyroid Stimulating Hormone 0.407 uIU/ML Low 0. 463-3.98 8 Free T4 1.15 ng/dL Normal 0.78-1.33 9 Laboratory test finding 05/18/2020 [facility] [phone] Tissue Transglutaminase IgA <2 U/mL Normal 0-3 10 1 note:<nlbl:demographic_chang ed> 2 A negative test [...] RODS PRESENT MODERATE WBC FEW RBC 6 FULL REPORT IN LAB NOTES (eC W and Meddanish). NO GROWTH CLINICAL SIGNIFICANCE 2 OR MORE ORGANISMS 7 QUANTITATIVE RESULT QUALITATIVE INTERPRETATION <5.0 IU/L NEGATIVE 5.0 - 25.0 IU/L INDETER MINATE >25.0 IU/L POSITIVE 8 note:<nlbl:demographic_chang ed> 9 note:<nlbl:demographic_chang ed> 10 Negative 0 - 3 Weak Positive 4 - 10 Positive >10 . Tissue Transglutaminase (tTG) has been identified as the endomysial antigen. Studies have demonstr- ated that endomysial IgA antibodies have over 99% specificity for gluten sensitive enteropathy. Performed at: - [facility] [id number] Interlocking Pavement Installer: Wen Webb MD, Phone: [phone] Procedures Date Code Description Status 05/13/2020 72558 Brief Emotional/Beha v Assessment W/ Scoring Doc Per Standard Inst Completed Medical Devices Description No Information Available Encounters Type Date Location Provider Dx Diagnosis Office Visit 06/22/2020 1:30p Main Office Mckenzie Warren PIPE LINE REPAIRER Z71.1 Person w feared hlth complaint in whom no diagnosis is made Office Visit 06/14/2020 10:45a Main Office Mckenzie Warren PIPE LINE REPAIRER J02.9 Acute pharyngitis, unspecified Office Visit 05/27/2020 9:30a Main Office Mckenzie Warren PIPE LINE REPAIRER K59.0 0 Constipation, unspecified B27.80 Other infectious mononucleos is without complication Office Visit 05/19/2020 11:45a Main Office Mckenzie Warren PIPE LINE REPAIRER J01.9 0 Acute sinusitis, unspecified Office Visit 05/13/2020 1:30p Main Office Mckenzie Warren, PIPE LINE REPAIRER K58.1 Irritable bowel syndrome with constipation L30.1 Dyshidrosis [pompholyx] Z13.89 Encounter for screening for other disorder Assessments Date Code Description Provider 06/22/2020 Z71.1 Person with feared h ealth complaint in whom no diagnosis is made Mckenzie Warren FNP 06/14/2020 J02.9 Acute pharyngitis, unspecified P leskaMckenzie rodrigues, POP 05/27/2020 K59.00 Constipation, unspecified Pleska chMckenzie, PIPE LINE REPAIRER 05/27/2020 B27.80 Other infectious mononucleosis w ithout complication Mckenzie Warren FNP 05/19/2020 J01.90 Acute sinusitis, unspecified Ple skMckenzie pinto, PIPE LINE REPAIRER 05/13/2020 K58.1 Irritable bowel syndrome with co [...] to keep her appointments with GI and HYDROSTATIC TUBING TESTER this week. Functional Status Functional Condition Comment Date Status Glasses Active Independent with all ADL's Activ e Independent with all IADL's Acti ve Mental Status Mental Condition Comment Date Status None Active Can Understand Information Activ e Referrals Refer to Reason for Referral Status Appt Date [facility] PSET Scheduled 06/23/[address] [place] [address] [phone]
--- OUTSIDE RECORDS SUMMARY | 2020-07-07 14:36 | CCD | Continuity of Care Document ---
Author Author Roberto CARDENAS PA Organization Unknown Address [address] [place] [address] Phone [phone] Care Team Providers Care [employer] Division Manager Name Role Phone [facility] [phone] Problems Description No Information Available Social History [...] CPT Code Status Date Vaccine Lot # [id number] Given 06/22/2020 Influenza Virus Vaccine, Quadrivalent,age 3 and up,multidose vial Vital Signs Date Vital Result Comment 06/22/2020 1:33pm BP Systolic 118 mmHg BP Diastolic 68 mmHg Heart Rate 82 /min Body Temperature 98.5 F Respiratory Rate 16 /min Height 64.25 inches 5'4.25" Weight 142.38 lb O2 % BldC Oximetry 98 % Peak Expiratory Flow Rate 402 Estimated Peak Flow Rate [place] Body Weight 120 lb BMI (Body Mass Index) 24.2 kg/m2 06/14/2020 11:00am BP Systolic 113 mmHg BP Diastolic 59 mmHg Heart Rate 81 /min Body Temperature 98.0 F Respiratory Rate 16 /min Height 64.25 inches 5'4.25" Weight 137.12 lb O2 % BldC Oximetry 99 % Peak Expiratory Flow Rate 402 Estimated Peak Flow Rate [place] Body Weight 120 lb BMI (Body Mass Index) 23.4 kg/m2 Results Test Acquired Date Facility Test Result H/L Range Note Ua W/ Reflex To Culture 06/21/2020 [place] [address] [phone] Appearance, Urine RFX HAZY Normal Clear Color, Urine RFX YELLOW Normal Yellow PH,Urine RFX 7.0 units Normal 5.0-9.0 Specific [place] Ur Auto RFX 1.016 Normal 1.002-1.035 Protein, [...] 0-1 CBC With Differential 06/21/2020 [place] [address] [phone] White Blood Count 5.8 10 Normal 4.0-10.0 [...] 36.0-66.0 Lymph % 38.7 % Normal 24.0-44.0 [place] % 4.8 % Normal 0.0-5.0 Eos % 5.2 % High 0.0-3.0 Baso % 0.9 % Normal 0.0-1.0 Immature Granulocyte % 0.2 % Normal 0-3.0 Nucleated Red Blood Cell % 0.0 % Normal 0-0 Neutrophils # 2.9 10 Normal 1.5-8.5 Lymph # 2.3 10 Normal 1.5-5.0 [place] # 0.3 10 Normal 0.0-0.8 Eos # 0.3 10 Normal 0.0-0.5 Baso # 0.1 10 Normal 0.0-0.2 Basic Metabolic Profile 06/21/2020 Patient Service [place] [id number] [phone] Glucose, Fasting 85 mg/dL Normal 70-100 Blood [...] Laboratory test finding 06/21/2020 [facility] [place], [place] [id number] [phone] HCG Serum Qualitative NEGATIVE Normal Negative 1 Chlamydia, GC & Trich Amp 06/21/2020 [place] [address] [phone] Chlamydia Dna Amplification NEGATIVE Normal Nega tive 2 GC Dna Amplification NEGATIVE Normal Negative 3 Trichomonas vaginalis (Amp) NOT DETECTED Normal Negative 4 Wet [place] Trichomonas 06/21/2020 [place] [address] [phone] Wet Prep WET PREP RESULT Normal 5 Laboratory test finding 05/25/2020 [place] [address] [phone] iSTAT B-hCG < 5.0 Normal 6 Comprehensive Metabolic Profil 05/18/2020 [facility] [phone] Glucose, Fasting 107 mg/dL High 70-100 Blood [...] 1.1 Low 1.2-2.2 CBC With Differential 05/18/2020 [facility] [phone] White Blood Count 4.8 10 Normal 4.0-10.0 [...] 36.0-66.0 Lymph % 36.6 % Normal 24.0-44.0 [place] % 4.2 % Normal 0.0-5.0 Eos % 7.2 % High 0.0-3.0 Baso % 1.1 % High 0.0-1.0 Immature Granulocyte % 0.0 % Normal 0-3.0 Nucleated Red Blood Cell % 0.0 % Normal 0-0 Neutrophils # 2.4 10 Normal 1.5-8.5 Lymph # 1.7 10 Normal 1.5-5.0 [place] # 0.2 10 Normal 0.0-0.8 Eos # 0.3 10 Normal 0.0-0.5 Baso # 0.1 10 Normal 0.0-0.2 TSH And T4 Free ([facility]) 05/18/2020 [facility] [phone] Thyroid Stimulating Hormone 0.407 uIU/ML Low 0. 463-3.98 7 Free T4 1.15 ng/dL Normal 0.78-1.33 8 Laboratory test finding 05/18/2020 [facility] [phone] Tissue Transglutaminase IgA <2 U/mL Normal 0-3 [...] sensitive enteropathy. Performed at: RN - [facility] [address] [id number] Dance Critic: Wen Webb MD, Phone: [phone] Procedures Date Code Description Status 05/13/2020 20370 Brief Emotional/Beha v Assessment W/ Scoring Doc [...] J02.9 Acute pharyngitis, unspecified P Mckenzie ledesma ATG ARCHITECT 05/27/2020 K59.00 Constipation, unspecified Pleska chMckenzie, ATG ARCHITECT 05/27/2020 B27.80 Other infectious mononucleosis w ithout complication Mckenzie Warren FNP 05/19/2020 J01.90 Acute sinusitis, unspecified Ple Mckenzie blanco, ATG ARCHITECT 05/13/2020 K58.1 Irritable bowel syndrome with co [...] to keep her appointments with GI and MACHINE PULLER OVER this week. Functional Status Functional Condition Comment Date Status Glasses Active Independent with all ADL's Activ e Independent with all IADL's Acti ve Mental Status Mental Condition Comment Date Status None Active Can Understand Information Activ e Referrals Refer to Reason for Referral Status Appt Date [facility] U PSET Scheduled 06/23/[address] [place] [address] [phone]
--- OUTSIDE RECORDS SUMMARY | 2020-07-07 14:36 | CCD | Continuity of Care Document ---
Author Author Roberto WARREN [facility] Organization Unknown Address [address] [place] [address] Phone [phone] Care Team Providers Care Tourist Guide Name Role Phone [facility] [phone] Problems Description No Information Available Social History [...] CPT Code Status Date Vaccine Lot # [id number] Given 06/22/2020 Influenza Virus Vaccine, Quadrivalent,age 3 and up,multidose vial Vital Signs Date Vital Result Comment 06/22/2020 1:33pm BP Systolic 118 mmHg BP Diastolic 68 mmHg Heart Rate 82 /min Body Temperature 98.5 F Respiratory Rate 16 /min Height 64.25 inches 5'4.25" Weight 142.38 lb O2 % BldC Oximetry 98 % Peak Expiratory Flow Rate 402 Estimated Peak Flow Rate [place] Body Weight 120 lb BMI (Body Mass Index) 24.2 kg/m2 06/14/2020 11:00am BP Systolic 113 mmHg BP Diastolic 59 mmHg Heart Rate 81 /min Body Temperature 98.0 F Respiratory Rate 16 /min Height 64.25 inches 5'4.25" Weight 137.12 lb O2 % BldC Oximetry 99 % Peak Expiratory Flow Rate 402 Estimated Peak Flow Rate [place] Body Weight 120 lb BMI (Body Mass Index) 23.4 kg/m2 Results Test Acquired Date Facility Test Result H/L Range Note Ua W/ Reflex To Culture 06/21/2020 [place] [address] [phone] Appearance, Urine RFX HAZY Normal Clear Color, Urine RFX YELLOW Normal Yellow PH,Urine RFX 7.0 units Normal 5.0-9.0 Specific [place] Ur Auto RFX 1.016 Normal 1.002-1.035 Protein, [...] 0-1 CBC With Differential 06/21/2020 [place] [address] [phone] White Blood Count 5.8 10 Normal 4.0-10.0 [...] 36.0-66.0 Lymph % 38.7 % Normal 24.0-44.0 [place] % 4.8 % Normal 0.0-5.0 Eos % 5.2 % High 0.0-3.0 Baso % 0.9 % Normal 0.0-1.0 Immature Granulocyte % 0.2 % Normal 0-3.0 Nucleated Red Blood Cell % 0.0 % Normal 0-0 Neutrophils # 2.9 10 Normal 1.5-8.5 Lymph # 2.3 10 Normal 1.5-5.0 [place] # 0.3 10 Normal 0.0-0.8 Eos # 0.3 10 Normal 0.0-0.5 Baso # 0.1 10 Normal 0.0-0.2 Basic Metabolic Profile 06/21/2020 Patient Service [place] [id number] [phone] Glucose, Fasting 85 mg/dL Normal 70-100 Blood [...] Laboratory test finding 06/21/2020 [facility] [place], [place] [id number] [phone] HCG Serum Qualitative NEGATIVE Normal Negative 1 Chlamydia, GC & Trich Amp 06/21/2020 [place] [address] [phone] Chlamydia Dna Amplification NEGATIVE Normal Nega tive 2 GC Dna Amplification NEGATIVE Normal Negative 3 Trichomonas vaginalis (Amp) NOT DETECTED Normal Negative 4 Wet [place] Trichomonas 06/21/2020 Patient Service Ce nter [place] [id number] [phone] Wet Prep WET PREP RESULT Normal 5 Urine Culture 06/21/2020 [place] [address] [phone] Urine Culture FULL REPORT IN L <SEE NOTE> Normal 6 Laboratory test finding 05/25/2020 [facility] [place] [id number] [phone] iSTAT B-hCG < 5.0 Normal 7 Comprehensive Metabolic Profil 05/18/2020 [facility] [phone] Glucose, Fasting 107 mg/dL High 70-100 Blood [...] 1.1 Low 1.2-2.2 CBC With Differential 05/18/2020 [facility] [phone] White Blood Count 4.8 10 Normal 4.0-10.0 [...] 36.0-66.0 Lymph % 36.6 % Normal 24.0-44.0 [place] % 4.2 % Normal 0.0-5.0 Eos % 7.2 % High 0.0-3.0 Baso % 1.1 % High 0.0-1.0 Immature Granulocyte % 0.0 % Normal 0-3.0 Nucleated Red Blood Cell % 0.0 % Normal 0-0 Neutrophils # 2.4 10 Normal 1.5-8.5 Lymph # 1.7 10 Normal 1.5-5.0 [place] # 0.2 10 Normal 0.0-0.8 Eos # 0.3 10 Normal 0.0-0.5 Baso # 0.1 10 Normal 0.0-0.2 TSH And T4 Free ([facility]) 05/18/2020 [facility] [phone] Thyroid Stimulating Hormone 0.407 uIU/ML Low 0. 463-3.98 8 Free T4 1.15 ng/dL Normal 0.78-1.33 9 Laboratory test finding 05/18/2020 [facility] [phone] Tissue Transglutaminase IgA <2 U/mL Normal 0-3 [...] for gluten sensitive enteropathy. Performed at: - [facility] [id number] Clip Baker: Wen Webb MD, Phone: [phone] Procedures Date Code Description Status 05/13/2020 20768 Brief Emotional/Beha v Assessment W/ Scoring Doc Per Standard Inst Completed Medical Devices Description No Information Available Encounters Type Date Location Provider Dx Diagnosis Office Visit 06/22/2020 1:30p Main Office Mckenzie Warren COMPUTING SERVICES DIRECTOR Z71.1 Person w feared hlth complaint in whom no diagnosis is made Office Visit 06/14/2020 10:45a Main Office Mckenzie Warren COMPUTING SERVICES DIRECTOR J02.9 Acute pharyngitis, unspecified Office Visit 05/27/2020 9:30a Main Office Mckenzie Warren COMPUTING SERVICES DIRECTOR K59.0 0 Constipation, unspecified B27.80 Other infectious mononucleos is without complication Office Visit 05/19/2020 11:45a Main Office Mckenzie Warren COMPUTING SERVICES DIRECTOR J01.9 0 Acute sinusitis, unspecified Office Visit 05/13/2020 1:30p Main Office Mckenzie Warren, COMPUTING SERVICES DIRECTOR K58.1 Irritable bowel syndrome with constipation L30.1 Dyshidrosis [pompholyx] Z13.89 Encounter for screening for other disorder Assessments Date Code Description Provider 06/22/2020 Z71.1 Person with feared h ealth complaint in whom no diagnosis is made Mckenzie Warren FNP 06/14/2020 J02.9 Acute pharyngitis, unspecified P leskaMckenzie rodrigues, POP 05/27/2020 K59.00 Constipation, unspecified Ples[place] chMceknzie, POP 05/27/2020 B27.80 Other infectious mononucleosis w ithout complication Mckenzie Warren FNP 05/19/2020 J01.90 Acute sinusitis, unspecified Ple skMckenzie pinto, COMPUTING SERVICES DIRECTOR 05/13/2020 K58.1 Irritable bowel syndrome with co [...] to keep her appointments with GI and CLIN TECH this week. Functional Status Functional Condition Comment Date Status Glasses Active Independent with all ADL's Activ e Independent with all IADL's Acti ve Mental Status Mental Condition Comment Date Status None Active Can Understand Information Activ e Referrals Refer to Reason for Referral Status Appt Date [facility] U PSET Closed 06/23/[address] [place] [address] [phone]
--- OUTSIDE RECORDS SUMMARY | 2020-07-07 14:37 | CCD | Continuity of Care Document ---
Author Author Roberto CARDENAS PA Organization Unknown Address [address] [place] [address] Phone [phone] Problems Description No Information Available Social History Type Date Description Comments Sex Unknown Tobacco Use Start: Unknown Never Used Smokeless Tobacco ETOH Use Denies alcohol use Tobacco Use Start: Unknown Patient has never smoked Recreational Drug Use Denies Drug Use Smoking Status Reviewed: 05/19/20 Patient has never smoked Exercise Type/Frequency Exercises [...] SIG Qnty Indications Ordering Provide r Date Amoxicillin/Clavulanate Potassium 875-125mg Tablets 1 by mouth twice a day for 10 days 20tabs J01.90 Mckenzie Amezquita ch, FNP 05/19/2020 Docusate Sodium 100mg Capsules 1 by mouth twice a day 60caps K58.1 Mckenzie Warren FNP 05/13/2020 History Medications No Active Medications Unknown 03/2020 - 05/13/2020 Immunizations Description No Information Available Vital Signs Date Vital Result Comment 05/19/2020 11:51am BP Systolic 124 mmHg BP Diastolic 72 mmHg Heart Rate 80 /min Body Temperature 97.5 F Respiratory Rate 18 /min Height 64.25 inches 5'4.25" Weight 139.50 lb O2 % BldC Oximetry 97 % Peak Expiratory Flow Rate 402 Estimated Peak Flow Rate [place] Body Weight 120 lb BMI (Body Mass Index) 23.8 kg/m2 05/13/2020 1:11pm BP Systolic 115 mmHg BP Diastolic 73 mmHg Heart Rate 75 /min Body Temperature 96.8 F Respiratory Rate 16 /min Height 64.25 inches 5'4.25" Weight 139.38 lb O2 % BldC Oximetry 99 % Peak Expiratory Flow Rate 402 Estimated Peak Flow Rate Last Menstrual Period 3088959 [place] Body Weight 120 lb BMI (Body Mass Index) 23.7 kg/m2 Results Test Acquired Date Facility Test Result H/L Range Note Laboratory test finding 05/25/2020 [facility] [place] [address] [phone] iSTAT B-hCG < 5.0 Normal 1 Comprehensive Metabolic Profil 05/18/2020 [facility] [phone] Glucose, Fasting 107 mg/dL High 70-100 Blood [...] 1.1 Low 1.2-2.2 CBC With Differential 05/18/2020 [facility] [phone] White Blood Count 4.8 10 Normal 4.0-10.0 [...] 36.0-66.0 Lymph % 36.6 % Normal 24.0-44.0 [place] % 4.2 % Normal 0.0-5.0 Eos % 7.2 % High 0.0-3.0 Baso % 1.1 % High 0.0-1.0 Immature Granulocyte % 0.0 % Normal 0-3.0 Nucleated Red Blood Cell % 0.0 % Normal 0-0 Neutrophils # 2.4 10 Normal 1.5-8.5 Lymph # 1.7 10 Normal 1.5-5.0 [place] # 0.2 10 Normal 0.0-0.8 Eos # 0.3 10 Normal 0.0-0.5 Baso # 0.1 10 Normal 0.0-0.2 TSH And T4 Free ([facility]) 05/18/2020 [facility] [phone] Thyroid Stimulating Hormone 0.407 uIU/ML Low 0. 463-3.98 2 Free T4 1.15 ng/dL Normal 0.78-1.33 3 Laboratory test finding 05/18/2020 [facility] [phone] Tissue Transglutaminase IgA <2 U/mL Normal 0-3 4 1 QUANTITATIVE RESULT QUALITATIVE INTERPRETATION <5.0 IU/L NEGATIVE 5.0 - 25.0 IU/L INDETER MINATE >25.0 IU/L POSITIVE 2 note:<nlbl:demographic_chang ed> 3 note:<nlbl:demographic_chang ed> 4 Negative 0 - 3 Weak Positive 4 - 10 Positive >10 . Tissue Transglutaminase (tTG) has been identified as the endomysial antigen. Studies have demonstr- ated that endomysial IgA antibodies have over 99% specificity for gluten sensitive enteropathy. Performed at: RN - [facility] [address] [id number] Mobile Mechanic: Wen Webb MD, Phone: [phone] Procedures Date Code Description Status 05/13/2020 80667 Brief Emotional/Beha v Assessment W/ Scoring Doc Per Standard Inst Completed Medical Devices Description No Information Available Encounters Type Date Location Provider Dx Diagnosis Office Visit 05/19/2020 11:45a Main Office Mckenzie Warren FNP J01.9 0 Acute sinusitis, unspecified Office Visit 05/13/2020 1:30p Main Office Mckenzie Warren FNP K58.1 Irritable bowel syndrome with constipation L30.1 Dyshidrosis [pompholyx] Z13.89 Encounter for screening for other disorder Assessments Date Code Description Provider 05/19/2020 J01.90 Acute sinusitis, unspecified Mckenzie Abarca FNP 05/13/2020 K58.1 Irritable bowel syndrome with co nstipation Mckenzie Warren FNP 05/13/2020 L30.1 Dyshidrosis [pompholyx] Mckenzie Warren FNP 05/13/2020 Z13.89 Encounter for screening for othe r disorder Mckenzie Warren FNP Plan of Treatment Future Appointment(s):* 05/27/2020 9:30 am - Mckenzie Warren FNP at Main Office * 06/15/2020 1:00 pm - Mckenzie Warren FNP at Main Office 05/19/2020 - Mckenzie Warren FNP* J01.90 Acute sinusitis, unspecified* New Medication:* Amoxicillin/Clavulanate Potassium 875-125 mg - 1 by mouth twice a day for 10 days Functional Status Functional Condition Comment Date Status Glasses Active Independent with all ADL's Activ e Independent with all IADL's Acti ve Mental Status Mental Condition Comment Date Status None Active Can Understand Information Activ e Referrals Description No Information Available
--- OUTSIDE RECORDS SUMMARY | 2020-07-07 14:37 | CCD | Continuity of Care Document ---
Author Author Roberto WARREN [facility] Organization Unknown Address [address] [place] [address] Phone [phone] Problems Description No Information Available Social History [...] Flow Rate 402 Estimated Peak Flow Rate [place] Body Weight 120 lb BMI (Body Mass Index) 23.8 kg/m2 05/13/2020 1:11pm BP Systolic 115 mmHg BP Diastolic 73 mmHg Heart Rate 75 /min Body Temperature 96.8 F Respiratory Rate 16 /min Height 64.25 inches 5'4.25" Weight 139.38 lb O2 % BldC Oximetry 99 % Peak Expiratory Flow Rate 402 Estimated Peak Flow Rate Last Menstrual Period 2298710 [place] Body Weight 120 lb BMI (Body Mass Index) 23.7 kg/m2 Results Test Acquired Date Facility Test Result H/L Range Note Comprehensive Metabolic Profil 05/18/2020 [facility] [phone] Glucose, Fasting 107 mg/dL High 70-100 Blood [...] 1.1 Low 1.2-2.2 CBC With Differential 05/18/2020 [facility] [phone] White Blood Count 4.8 10 Normal 4.0-10.0 [...] 36.0-66.0 Lymph % 36.6 % Normal 24.0-44.0 [place] % 4.2 % Normal 0.0-5.0 Eos % 7.2 % High 0.0-3.0 Baso % 1.1 % High 0.0-1.0 Immature Granulocyte % 0.0 % Normal 0-3.0 Nucleated Red Blood Cell % 0.0 % Normal 0-0 Neutrophils # 2.4 10 Normal 1.5-8.5 Lymph # 1.7 10 Normal 1.5-5.0 [place] # 0.2 10 Normal 0.0-0.8 Eos # 0.3 10 Normal 0.0-0.5 Baso # 0.1 10 Normal 0.0-0.2 TSH And T4 Free ([facility]) 05/18/2020 [facility] [phone] Thyroid Stimulating Hormone 0.407 uIU/ML Low 0. 463-3.98 1 Free T4 1.15 ng/dL Normal 0.78-1.33 2 1 note:<nlbl:demographic_[facility] ed> 2 note:<nlbl:demographic_[facility] ed> Procedures Date Code Description Status 05/13/2020 06914 Brief Emotional/Beha v Assessment W/ Scoring Doc [...] Warren FNP Plan of Treatment Future Appointment(s):* 06/15/2020 1:00 pm - Mckenzie Warren FNP [...]
--- OUTSIDE RECORDS SUMMARY | 2020-07-07 14:37 | CCD | Continuity of Care Document ---
Author Author Roberto WARREN [facility] Organization Unknown Address [address] [place] [address] Phone [phone] Care Team Providers Care Automatic Grinder Operator Name Role Phone [facility] [...] Flow Rate 402 Estimated Peak Flow Rate [place] Body Weight 120 lb BMI (Body Mass Index) 24.2 kg/m2 06/14/2020 11:00am BP Systolic 113 mmHg BP Diastolic 59 mmHg Heart Rate 81 /min Body Temperature 98.0 F Respiratory Rate 16 /min Height 64.25 inches 5'4.25" Weight 137.12 lb O2 % BldC Oximetry 99 % Peak Expiratory Flow Rate 402 Estimated Peak Flow Rate [place] Body Weight 120 lb BMI (Body Mass Index) 23.4 kg/m2 Results Test Acquired Date Facility Test Result H/L Range Note Ua W/ Reflex To Culture 06/21/2020 [place] [address] [phone] Appearance, Urine RFX HAZY Normal Clear Color, Urine RFX YELLOW Normal Yellow PH,Urine RFX 7.0 units Normal 5.0-9.0 Specific [place] Ur Auto RFX 1.016 Normal 1.002-1.035 Protein, [...] 0-1 CBC With Differential 06/21/2020 [place] [address] [phone] White Blood Count 5.8 10 Normal 4.0-10.0 [...] 36.0-66.0 Lymph % 38.7 % Normal 24.0-44.0 [place] % 4.8 % Normal 0.0-5.0 Eos % 5.2 % High 0.0-3.0 Baso % 0.9 % Normal 0.0-1.0 Immature Granulocyte % 0.2 % Normal 0-3.0 Nucleated Red Blood Cell % 0.0 % Normal 0-0 Neutrophils # 2.9 10 Normal 1.5-8.5 Lymph # 2.3 10 Normal 1.5-5.0 [place] # 0.3 10 Normal 0.0-0.8 Eos # 0.3 10 Normal 0.0-0.5 Baso # 0.1 10 Normal 0.0-0.2 Basic Metabolic Profile 06/21/2020 [place] [address] [phone] Glucose, Fasting 85 mg/dL Normal 70-100 Blood [...] Laboratory test finding 06/21/2020 [facility] [place] [address] [phone] HCG Serum Qualitative NEGATIVE Normal Negative 1 Chlamydia, GC & Trich Amp 06/21/2020 [place] [address] [phone] Chlamydia Dna Amplification NEGATIVE Normal Nega tive 2 GC Dna Amplification NEGATIVE Normal Negative 3 Trichomonas vaginalis (Amp) NOT DETECTED Normal Negative 4 Wet [place] Trichomonas 06/21/2020 [place] [address] [phone] Wet Prep WET PREP RESULT Normal 5 Laboratory test finding 05/25/2020 [place] [address] [phone] iSTAT B-hCG < 5.0 Normal 6 Comprehensive Metabolic Profil 05/18/2020 [facility] [phone] Glucose, Fasting 107 mg/dL High 70-100 Blood [...] 1.1 Low 1.2-2.2 CBC With Differential 05/18/2020 [facility] [phone] White Blood Count 4.8 10 Normal 4.0-10.0 [...] 36.0-66.0 Lymph % 36.6 % Normal 24.0-44.0 [place] % 4.2 % Normal 0.0-5.0 Eos % 7.2 % High 0.0-3.0 Baso % 1.1 % High 0.0-1.0 Immature Granulocyte % 0.0 % Normal 0-3.0 Nucleated Red Blood Cell % 0.0 % Normal 0-0 Neutrophils # 2.4 10 Normal 1.5-8.5 Lymph # 1.7 10 Normal 1.5-5.0 [place] # 0.2 10 Normal 0.0-0.8 Eos # 0.3 10 Normal 0.0-0.5 Baso # 0.1 10 Normal 0.0-0.2 TSH And T4 Free ([facility]) 05/18/2020 [facility] [phone] Thyroid Stimulating Hormone 0.407 uIU/ML Low 0. 463-3.98 7 Free T4 1.15 ng/dL Normal 0.78-1.33 8 Laboratory test finding 05/18/2020 [facility] [phone] Tissue Transglutaminase IgA <2 U/mL Normal 0-3 [...] sensitive enteropathy. Performed at: RN - [facility] [address] [id number] Cage Clerk: Wen Webb MD, Phone: [phone] Procedures Date Code Description Status 05/13/2020 25451 Brief Emotional/Beha v Assessment W/ Scoring Doc Per Standard Inst Completed Medical Devices Description No Information Available Encounters Type Date Location Provider Dx Diagnosis Office Visit 06/14/2020 10:45a Main Office PlebellaachMckenzie, ASSEMBLY ASSOCIATE J02.9 Acute pharyngitis, unspecified Office Visit 05/27/2020 9:30a Main Office [place] Mckenzie, ASSEMBLY ASSOCIATE K59.0 0 Constipation, unspecified B27.80 Other infectious mononucleos is without complication Office Visit 05/19/2020 11:45a Main Office [place] Mckenzie, ASSEMBLY ASSOCIATE J01.9 0 Acute sinusitis, unspecified Office Visit 05/13/2020 1:30p Main Office [place] Mckenzie, ASSEMBLY ASSOCIATE K58.1 Irritable bowel syndrome with constipation L30.1 Dyshidrosis [pompholyx] Z13.89 Encounter for screening for other disorder Assessments Date Code Description Provider 06/14/2020 J02.9 Acute pharyngitis, unspecified P Mckenzie ledesma, ASSEMBLY ASSOCIATE 05/27/2020 K59.00 Constipation, unspecified [place] Mckenzie rodrigues, ASSEMBLY ASSOCIATE 05/27/2020 B27.80 Other infectious mononucleosis w ithout complication [place]ella[place] Mckenzie, ASSEMBLY ASSOCIATE 05/19/2020 J01.90 Acute sinusitis, unspecified Ple skach Mckenzie, ASSEMBLY ASSOCIATE 05/13/2020 K58.1 Irritable bowel syndrome with co nstipation [place] Mckenzie, ASSEMBLY ASSOCIATE 05/13/2020 L30.1 Dyshidrosis [pompholyx] Mckenzie Warren FNP 05/13/2020 Z13.89 Encounter for screening for othe r disorder Mckenzie Warren FNP Plan of Treatment Future Appointment(s):* 08/25/2020 2:00 pm - Mckenzie Warren FNP at Main Office Functional Status Functional Condition Comment Date Status Glasses Active Independent with all ADL's Activ e Independent with all IADL's Acti ve Mental Status Mental Condition Comment Date Status None Active Can Understand Information Activ e Referrals Refer to Reason for Referral Status Appt Date [facility] PSET Scheduled 06/23/[address] [place] [address] [phone]
--- OUTSIDE RECORDS SUMMARY | 2020-07-07 14:37 | CCD | Continuity of Care Document ---
Author Author Roberto OLIVER PA Organization Unknown Address [address] [place] [address] Phone [phone] Care Team Providers Care Arts Administrator Or Manager Name Role Phone [facility] [phone] [facility] [phone] Problems Description No Information Available Social History [...] Medical Devices Description No Information Available Encounters Description No Information Available Assessments Date Code Description Provider 06/22/2020 R51.9 Headache, unspecified FAVIAN Concepcion 06/22/2020 Z20.828 Contact with and (martin spected) exposure to other viral communicable diseases FAVIAN Concepcion Plan of Treatment 06/22/2020 - FAVIAN Concepcion* R51.9 Headache, unspecified * Z20.828 Contact with and (suspected) exposure to other viral communicable diseases* Comments:* POC rapid COVID neg today * All * New Medication:* No Active Medications - Functional Status Description No Information Available Mental Status Description No Information Available Referrals Description No Information Available
--- OUTSIDE RECORDS SUMMARY | 2020-07-07 14:37 | CCD | Continuity of Care Document ---
Author Author Roberto WARREN [facility] Organization Unknown Address [address] [place] [address] Phone [phone] Problems Description No Information Available Social History Type Date Description Comments Sex Unknown Tobacco Use Start: Unknown Never Used Smokeless Tobacco ETOH Use Denies alcohol use Tobacco Use Start: Unknown Patient has never smoked Recreational Drug Use Denies Drug Use Smoking Status Reviewed: 05/27/20 Patient has never smoked Exercise Type/Frequency Exercises [...] Available Vital Signs Date Vital Result Comment 05/27/2020 9:26am BP Systolic 104 mmHg BP Diastolic 62 mmHg Heart Rate 85 /min Body Temperature 97.3 F Respiratory Rate 16 /min Height 64.25 inches 5'4.25" Weight 138.38 lb O2 % BldC Oximetry 98 % Peak Expiratory Flow Rate 402 Estimated Peak Flow Rate [place] Body Weight 120 lb BMI (Body Mass Index) 23.6 kg/m2 05/19/2020 11:51am BP Systolic 124 mmHg BP Diastolic 72 mmHg Heart Rate 80 /min Body Temperature 97.5 F Respiratory Rate 18 /min Height 64.25 inches 5'4.25" Weight 139.50 lb O2 % BldC Oximetry 97 % Peak Expiratory Flow Rate 402 Estimated Peak Flow Rate [place] Body Weight 120 lb BMI (Body Mass Index) 23.8 kg/m2 Results Test Acquired Date Facility Test Result H/L Range Note Laboratory test finding 05/25/2020 [facility] [place], [place] [address] [phone] iSTAT B-hCG < 5.0 Normal 1 Comprehensive Metabolic Profil 05/18/2020 [facility] [phone] Glucose, Fasting 107 mg/dL High 70-100 Blood [...] 1.1 Low 1.2-2.2 CBC With Differential 05/18/2020 [facility] [phone] White Blood Count 4.8 10 Normal 4.0-10.0 [...] 36.0-66.0 Lymph % 36.6 % Normal 24.0-44.0 [place] % 4.2 % Normal 0.0-5.0 Eos % 7.2 % High 0.0-3.0 Baso % 1.1 % High 0.0-1.0 Immature Granulocyte % 0.0 % Normal 0-3.0 Nucleated Red Blood Cell % 0.0 % Normal 0-0 Neutrophils # 2.4 10 Normal 1.5-8.5 Lymph # 1.7 10 Normal 1.5-5.0 [place] # 0.2 10 Normal 0.0-0.8 Eos # 0.3 10 Normal 0.0-0.5 Baso # 0.1 10 Normal 0.0-0.2 TSH And T4 Free ([facility]) 05/18/2020 [facility] [phone] Thyroid Stimulating Hormone 0.407 uIU/ML Low 0. 463-3.98 2 Free T4 1.15 ng/dL Normal 0.78-1.33 3 Laboratory test finding 05/18/2020 [facility] [phone] Tissue Transglutaminase IgA <2 U/mL Normal 0-3 [...] sensitive enteropathy. Performed at: RN - [facility] [address] [id number] Tunnel Kiln Repairer: Wen Webb MD, Phone: [phone] Procedures Date Code Description Status 05/13/2020 81758 Brief Emotional/Beha v Assessment W/ Scoring Doc Per Standard Inst Completed Medical Devices Description No Information Available Encounters Type Date Location Provider Dx Diagnosis Office Visit 05/27/2020 9:30a Main Office PleMckenzie blanco, FUR STRETCHER K59.0 0 Constipation, unspecified B27.80 Other infectious mononucleos is without complication Office Visit 05/19/2020 11:45a Main Office Pleskach Mckenzie, FUR STRETCHER J01.9 0 Acute sinusitis, unspecified Office Visit 05/13/2020 1:30p Main Office Plebellaach Mckenzie, FUR STRETCHER K58.1 Irritable bowel syndrome with constipation L30.1 Dyshidrosis [pompholyx] Z13.89 Encounter for screening for other disorder Assessments Date Code Description Provider 05/27/2020 K59.00 Constipation, unspecified Pleska Terrance rodriguesy, FUR STRETCHER 05/27/2020 B27.80 Other infectious mononucleosis w ithout complication Pleskach Mckenzie, FUR STRETCHER 05/19/2020 J01.90 Acute sinusitis, unspecified Ple skach Mckenzie, FUR STRETCHER 05/13/2020 K58.1 Irritable bowel syndrome with co nstipation PleTerrance blancoy, FUR STRETCHER 05/13/2020 L30.1 Dyshidrosis [pompholyx] Plebellaach Mckenzie, FUR STRETCHER 05/13/2020 Z13.89 Encounter for screening for othe r disorder Mckenzie Warren, FUR STRETCHER Plan of Treatment Future Appointment(s):* 08/25/2020 2:00 pm - Mckenzie Warren FUR STRETCHER at Main Office 05/27/2020 - PleMckenzie blanco, FUR STRETCHER* K59.00 Constipation, unspecified* Comments:* continue colace and miralax. Refer to GI * Follow up:* 3 months * B27.80 Other infectious mononucleosis without complication* Comments:* improving. continue hydration and tylenol/ibuprofen as needed Functional Status Functional Condition Comment Date Status Glasses Active Independent with all ADL's Activ e Independent with all IADL's Acti ve Mental Status Mental Condition Comment Date Status None Active Can Understand Information Activ e Referrals Description No Information Available
--- OUTSIDE RECORDS SUMMARY | 2020-07-07 14:37 | CCD | Continuity of Care Document ---
Author Author Roberto WARREN [facility] Organization Unknown Address [address] [place] [address] Phone [phone] Care Team Providers Care Real Estate Representative Name Role Phone Gastroenterology & Hepatology AUTM [phone] Problems Description No Information Available Social History Type Date Description Comments Sex Unknown Tobacco Use Start: Unknown Never Used Smokeless Tobacco ETOH Use Denies alcohol use Tobacco Use Start: Unknown Patient has never smoked Recreational Drug Use Denies Drug Use Smoking Status Reviewed: 06/14/20 Patient has never smoked Exercise Type/Frequency Exercises [...] Available Vital Signs Date Vital Result Comment 06/14/2020 11:00am BP Systolic 113 mmHg BP Diastolic 59 mmHg Heart Rate 81 /min Body Temperature 98.0 F Respiratory Rate 16 /min Height 64.25 inches 5'4.25" Weight 137.12 lb O2 % BldC Oximetry 99 % Peak Expiratory Flow Rate 402 Estimated Peak Flow Rate [place] Body Weight 120 lb BMI (Body Mass Index) 23.4 kg/m2 05/27/2020 9:26am BP Systolic 104 mmHg BP Diastolic 62 mmHg Heart Rate 85 /min Body Temperature 97.3 F Respiratory Rate 16 /min Height 64.25 inches 5'4.25" Weight 138.38 lb O2 % BldC Oximetry 98 % Peak Expiratory Flow Rate 402 Estimated Peak Flow Rate [place] Body Weight 120 lb BMI (Body Mass Index) 23.6 kg/m2 Results Test Acquired Date Facility Test Result H/L Range Note Laboratory test finding 05/25/2020 [facility] [place], [place] [id number] [phone] iSTAT B-hCG < 5.0 Normal 1 Comprehensive Metabolic Profil 05/18/2020 [facility] [phone] Glucose, Fasting 107 mg/dL High 70-100 Blood [...] 1.1 Low 1.2-2.2 CBC With Differential 05/18/2020 [facility] [phone] White Blood Count 4.8 10 Normal 4.0-10.0 [...] 36.0-66.0 Lymph % 36.6 % Normal 24.0-44.0 [place] % 4.2 % Normal 0.0-5.0 Eos % 7.2 % High 0.0-3.0 Baso % 1.1 % High 0.0-1.0 Immature Granulocyte % 0.0 % Normal 0-3.0 Nucleated Red Blood Cell % 0.0 % Normal 0-0 Neutrophils # 2.4 10 Normal 1.5-8.5 Lymph # 1.7 10 Normal 1.5-5.0 [place] # 0.2 10 Normal 0.0-0.8 Eos # 0.3 10 Normal 0.0-0.5 Baso # 0.1 10 Normal 0.0-0.2 TSH And T4 Free ([facility]) 05/18/2020 [facility] [phone] Thyroid Stimulating Hormone 0.407 uIU/ML Low 0. 463-3.98 2 Free T4 1.15 ng/dL Normal 0.78-1.33 3 Laboratory test finding 05/18/2020 [facility] [phone] Tissue Transglutaminase IgA <2 U/mL Normal 0-3 4 1 QUANTITATIVE RESULT QUALITATIVE INTERPRETATION <5.0 IU/L NEGATIVE 5.0 - 25.0 IU/L INDETER MINATE >25.0 IU/L POSITIVE 2 note:<nlbl:demographic_chang ed> 3 note:<nlbl:demographic_[facility] ed> 4 Negative 0 - 3 Weak Positive 4 - 10 Positive >10 . Tissue Transglutaminase (tTG) has been identified as the endomysial antigen. Studies have demonstr- ated that endomysial IgA antibodies have over 99% specificity for gluten sensitive enteropathy. Performed at: RN - [facility] [address] [id number] Senior Php Developer: Wen Webb MD, Phone: [phone] Procedures Date Code Description Status 05/13/2020 47870 Brief Emotional/Beha v Assessment W/ Scoring Doc Per Standard Inst Completed Medical Devices Description No Information Available Encounters Type Date Location Provider Dx Diagnosis Office Visit 05/27/2020 9:30a Main Office Pleskach, Mckenzie, MANUFACTURING LEAD K59.0 0 Constipation, unspecified B27.80 Other infectious mononucleos is without complication Office Visit 05/19/2020 11:45a Main Office Pleskach, Mckenzie, MANUFACTURING LEAD J01.9 0 Acute sinusitis, unspecified Office Visit 05/13/2020 1:30p Main Office PlebellaachTerrancey, MANUFACTURING LEAD K58.1 Irritable bowel syndrome with constipation L30.1 Dyshidrosis [pompholyx] Z13.89 Encounter for screening for other disorder Assessments Date Code Description Provider 06/14/2020 J02.9 Acute pharyngitis, unspecified P leskachMckenzie, MANUFACTURING LEAD 05/27/2020 K59.00 Constipation, unspecified Pleska ch, Mckenzie, MANUFACTURING LEAD 05/27/2020 B27.80 Other infectious mononucleosis w ithout complication Pleskach Mckenzie, MANUFACTURING LEAD 05/19/2020 J01.90 Acute sinusitis, unspecified Ple skach, Mckenzie, MANUFACTURING LEAD 05/13/2020 K58.1 Irritable bowel syndrome with co nstipation PleTerrance blancoy, MANUFACTURING LEAD 05/13/2020 L30.1 Dyshidrosis [pompholyx] Plebellaach , Mckenzie, MANUFACTURING LEAD 05/13/2020 Z13.89 Encounter for screening for othe r disorder Mckenzie Warren MANUFACTURING LEAD Plan of Treatment Future Appointment(s):* 08/25/2020 2:00 pm - Mckenzie Warren FNP at Main Office 06/14/2020 - Mckenzie Warren MANUFACTURING LEAD* J02.9 Acute pharyngitis, unspecified* Recommendations:* Use humidifiers in your home Take and over the counter antihistamine every night (Zyrtec, Claritin, Tawanna) Functional Status Functional Condition Comment Date Status Glasses Active Independent with all ADL's Activ e Independent with all IADL's Acti ve Mental Status Mental Condition Comment Date Status None Active Can Understand Information Activ e Referrals Refer to Reason for Referral Status Appt Date Gastroenterology & Hepatology CONSTIPATION AND STOMACHE UPSET S ent [address] [place] [address] [phone]
--- OUTSIDE RECORDS SUMMARY | 2020-07-07 14:37 | CCD | Continuity of Care Document ---
Author Author Roberto WARREN [facility] Organization Unknown Address [address] [place] [address] Phone [phone] Problems Description No Information Available Social History [...] Flow Rate 402 Estimated Peak Flow Rate [place] Body Weight 120 lb BMI (Body Mass Index) 23.6 kg/m2 05/19/2020 11:51am BP Systolic 124 mmHg BP Diastolic 72 mmHg Heart Rate 80 /min Body Temperature 97.5 F Respiratory Rate 18 /min Height 64.25 inches 5'4.25" Weight 139.50 lb O2 % BldC Oximetry 97 % Peak Expiratory Flow Rate 402 Estimated Peak Flow Rate [place] Body Weight 120 lb BMI (Body Mass Index) 23.8 kg/m2 Results Test Acquired Date Facility Test Result H/L Range Note Laboratory test finding 05/25/2020 [facility] [place], [place] [address] [phone] iSTAT B-hCG < 5.0 Normal 1 Comprehensive Metabolic Profil 05/18/2020 [facility] [phone] Glucose, Fasting 107 mg/dL High 70-100 Blood [...] 1.1 Low 1.2-2.2 CBC With Differential 05/18/2020 [facility] [phone] White Blood Count 4.8 10 Normal 4.0-10.0 [...] 36.0-66.0 Lymph % 36.6 % Normal 24.0-44.0 [place] % 4.2 % Normal 0.0-5.0 Eos % 7.2 % High 0.0-3.0 Baso % 1.1 % High 0.0-1.0 Immature Granulocyte % 0.0 % Normal 0-3.0 Nucleated Red Blood Cell % 0.0 % Normal 0-0 Neutrophils # 2.4 10 Normal 1.5-8.5 Lymph # 1.7 10 Normal 1.5-5.0 [place] # 0.2 10 Normal 0.0-0.8 Eos # 0.3 10 Normal 0.0-0.5 Baso # 0.1 10 Normal 0.0-0.2 TSH And T4 Free ([facility]) 05/18/2020 [facility] [phone] Thyroid Stimulating Hormone 0.407 uIU/ML Low 0. 463-3.98 2 Free T4 1.15 ng/dL Normal 0.78-1.33 3 Laboratory test finding 05/18/2020 [facility] [phone] Tissue Transglutaminase IgA <2 U/mL Normal 0-3 [...] sensitive enteropathy. Performed at: RN - [facility] [address] [id number] Specialist Icu: Wen Webb MD, Phone: [phone] Procedures Date Code Description Status 05/13/2020 55248 Brief Emotional/Beha v Assessment W/ Scoring Doc Per Standard Inst Completed Medical Devices Description No Information Available Encounters Type Date Location Provider Dx Diagnosis Office Visit 05/19/2020 11:45a Main Office Mckenzie Warren FNP J01.9 0 Acute sinusitis, unspecified Office Visit 05/13/2020 1:30p Main Office Mckenzie Warren PROGRAM MANUFACTURING LEADER K58.1 Irritable bowel syndrome with constipation L30.1 Dyshidrosis [pompholyx] Z13.89 Encounter for screening for other disorder Assessments Date Code Description Provider 05/27/2020 K59.00 Constipation, unspecified PleMckenzie squires ch, FNP 05/19/2020 J01.90 Acute sinusitis, unspecified Ple skMckenzie pinto, PROGRAM MANUFACTURING LEADER 05/13/2020 K58.1 Irritable bowel syndrome with co nstipation Mckenzie Warren, PROGRAM MANUFACTURING LEADER 05/13/2020 L30.1 Dyshidrosis [pompholyx] Mckenzie Warren, PROGRAM MANUFACTURING LEADER 05/13/2020 Z13.89 Encounter for screening for othe r disorder Mckenzie Warren FNP Plan of Treatment Future Appointment(s):* 08/25/2020 2:00 pm - Mckenzie Warern FNP at Main Office 05/27/2020 - Mckenzie Warren FNP* K59.00 Constipation, unspecified* Follow up: * 3 months Functional Status Functional Condition Comment Date Status Glasses Active Independent with all ADL's Activ e Independent with all IADL's Acti ve Mental Status Mental Condition Comment Date Status None Active Can Understand Information Activ e Referrals Description No Information Available
--- OUTSIDE RECORDS SUMMARY | 2020-07-07 14:37 | CCD | Continuity of Care Document ---
Author Author Roberto WARREN [facility] Organization Unknown Address [address] [place] [address] Phone [phone] Problems Description No Information Available Social History [...] Flow Rate 402 Estimated Peak Flow Rate [place] Body Weight 120 lb BMI (Body Mass Index) 23.8 kg/m2 05/13/2020 1:11pm BP Systolic 115 mmHg BP Diastolic 73 mmHg Heart Rate 75 /min Body Temperature 96.8 F Respiratory Rate 16 /min Height 64.25 inches 5'4.25" Weight 139.38 lb O2 % BldC Oximetry 99 % Peak Expiratory Flow Rate 402 Estimated Peak Flow Rate Last Menstrual Period [id number] [place] Body Weight 120 lb BMI (Body Mass Index) 23.7 kg/m2 Results Test Acquired Date Facility Test Result H/L Range Note Comprehensive Metabolic Profil 05/18/2020 [facility] [phone] Glucose, Fasting 107 mg/dL High 70-100 Blood [...] 1.1 Low 1.2-2.2 CBC With Differential 05/18/2020 [facility] [phone] White Blood Count 4.8 10 Normal 4.0-10.0 [...] 36.0-66.0 Lymph % 36.6 % Normal 24.0-44.0 [place] % 4.2 % Normal 0.0-5.0 Eos % 7.2 % High 0.0-3.0 Baso % 1.1 % High 0.0-1.0 Immature Granulocyte % 0.0 % Normal 0-3.0 Nucleated Red Blood Cell % 0.0 % Normal 0-0 Neutrophils # 2.4 10 Normal 1.5-8.5 Lymph # 1.7 10 Normal 1.5-5.0 [place] # 0.2 10 Normal 0.0-0.8 Eos # 0.3 10 Normal 0.0-0.5 Baso # 0.1 10 Normal 0.0-0.2 TSH And T4 Free ([facility]) 05/18/2020 [facility] [phone] Thyroid Stimulating Hormone 0.407 uIU/ML Low 0. 463-3.98 1 Free T4 1.15 ng/dL Normal 0.78-1.33 2 Laboratory test finding 05/18/2020 [facility] [phone] Tissue Transglutaminase IgA <2 U/mL Normal 0-3 3 1 note:<nlbl:demographic_chang ed> 2 note:<nlbl:demographic_chang ed> 3 Negative 0 - 3 Weak Positive 4 - 10 Positive >10 . Tissue Transglutaminase (tTG) has been identified as the endomysial antigen. Studies have demonstr- ated that endomysial IgA antibodies have over 99% specificity for gluten sensitive enteropathy. Performed at: RN - [facility] [address] [id number] Security Control Assessor: Wen Webb MD, Phone: [phone] Procedures Date Code Description Status 05/13/2020 66613 Brief Emotional/Beha v Assessment W/ Scoring Doc [...] Treatment Future Appointment(s):* 06/15/2020 1:00 pm - Mckenzei Warren FNP at Main Office 05/19/2020 - [...]
--- OUTSIDE RECORDS SUMMARY | 2020-07-07 14:37 | CCD | Continuity of Care Document ---
Author Author Roberto WARREN [facility] Organization Unknown Address [address] [place] [address] Phone [phone] Care Team Providers Care Drone Operator Name Role Phone Gastroenterology & Hepatology [...] Flow Rate 402 Estimated Peak Flow Rate [place] Body Weight 120 lb BMI (Body Mass Index) 23.4 kg/m2 05/27/2020 9:26am BP Systolic 104 mmHg BP Diastolic 62 mmHg Heart Rate 85 /min Body Temperature 97.3 F Respiratory Rate 16 /min Height 64.25 inches 5'4.25" Weight 138.38 lb O2 % BldC Oximetry 98 % Peak Expiratory Flow Rate 402 Estimated Peak Flow Rate [place] Body Weight 120 lb BMI (Body Mass Index) 23.6 kg/m2 Results Test Acquired Date Facility Test Result H/L Range Note Ua W/ Reflex To Culture 06/21/2020 [facility] [place] [address] [phone] Appearance, Urine RFX HAZY Normal Clear Color, Urine RFX YELLOW Normal Yellow PH,Urine RFX 7.0 units Normal 5.0-9.0 Specific [place] Ur Auto RFX 1.016 Normal 1.002-1.035 Protein, [...] 0-1 CBC With Differential 06/21/2020 [place] [address] [phone] White Blood Count 5.8 10 Normal 4.0-10.0 [...] 36.0-66.0 Lymph % 38.7 % Normal 24.0-44.0 [place] % 4.8 % Normal 0.0-5.0 Eos % 5.2 % High 0.0-3.0 Baso % 0.9 % Normal 0.0-1.0 Immature Granulocyte % 0.2 % Normal 0-3.0 Nucleated Red Blood Cell % 0.0 % Normal 0-0 Neutrophils # 2.9 10 Normal 1.5-8.5 Lymph # 2.3 10 Normal 1.5-5.0 [place] # 0.3 10 Normal 0.0-0.8 Eos # 0.3 10 Normal 0.0-0.5 Baso # 0.1 10 Normal 0.0-0.2 Basic Metabolic Profile 06/21/2020 [facility] [place] [address] [phone] Glucose, Fasting 85 mg/dL Normal 70-100 Blood [...] Laboratory test finding 06/21/2020 [facility] [place] [address] [phone] HCG Serum Qualitative NEGATIVE Normal Negative 1 Chlamydia, GC & Trich Amp 06/21/2020 [place] [address] [phone] Chlamydia Dna Amplification NEGATIVE Normal Nega tive 2 GC Dna Amplification NEGATIVE Normal Negative 3 Trichomonas vaginalis (Amp) NOT DETECTED Normal Negative 4 Wet [place] Trichomonas 06/21/2020 [place] [address] [phone] Wet Prep WET PREP RESULT Normal 5 Laboratory test finding 05/25/2020 [facility] [place] [address] [phone] iSTAT B-hCG < 5.0 Normal 6 Comprehensive Metabolic Profil 05/18/2020 [facility] [phone] Glucose, Fasting 107 mg/dL High 70-100 Blood [...] 1.1 Low 1.2-2.2 CBC With Differential 05/18/2020 [facility] [phone] White Blood Count 4.8 10 Normal 4.0-10.0 [...] 36.0-66.0 Lymph % 36.6 % Normal 24.0-44.0 [place] % 4.2 % Normal 0.0-5.0 Eos % 7.2 % High 0.0-3.0 Baso % 1.1 % High 0.0-1.0 Immature Granulocyte % 0.0 % Normal 0-3.0 Nucleated Red Blood Cell % 0.0 % Normal 0-0 Neutrophils # 2.4 10 Normal 1.5-8.5 Lymph # 1.7 10 Normal 1.5-5.0 [place] # 0.2 10 Normal 0.0-0.8 Eos # 0.3 10 Normal 0.0-0.5 Baso # 0.1 10 Normal 0.0-0.2 TSH And T4 Free ([facility]) 05/18/2020 [facility] [phone] Thyroid Stimulating Hormone 0.407 uIU/ML Low 0. 463-3.98 7 Free T4 1.15 ng/dL Normal 0.78-1.33 8 Laboratory test finding 05/18/2020 [facility] [phone] Tissue Transglutaminase IgA <2 U/mL Normal 0-3 [...] sensitive enteropathy. Performed at: RN - [facility] [address] [id number] Cross Cut Saw Operator: Wen Webb MD, Phone: [phone] Procedures Date Code Description Status 05/13/2020 28118 Brief Emotional/Beha v Assessment W/ Scoring Doc Per Standard Inst Completed Medical Devices Description No Information Available Encounters Type Date Location Provider Dx Diagnosis Office Visit 06/14/2020 10:45a Main Office Plebellaach Mckenzie, ANIMAL PATHOLOGY TEACHER J02.9 Acute pharyngitis, unspecified Office Visit 05/27/2020 9:30a Main Office Pleskach, Mckenzie, ANIMAL PATHOLOGY TEACHER K59.0 0 Constipation, unspecified B27.80 Other infectious mononucleos is without complication Office Visit 05/19/2020 11:45a Main Office Pleskach Mckenzie, ANIMAL PATHOLOGY TEACHER J01.9 0 Acute sinusitis, unspecified Office Visit 05/13/2020 1:30p Main Office Pleskach, Mckenzie, ANIMAL PATHOLOGY TEACHER K58.1 Irritable bowel syndrome with constipation L30.1 Dyshidrosis [pompholyx] Z13.89 Encounter for screening for other disorder Assessments Date Code Description Provider 06/14/2020 J02.9 Acute pharyngitis, unspecified P Mckenzie ledesma, ANIMAL PATHOLOGY TEACHER 05/27/2020 K59.00 Constipation, unspecified Pleska Mckenzie rodrigues, ANIMAL PATHOLOGY TEACHER 05/27/2020 B27.80 Other infectious mononucleosis w ithout complication Pleskach Mckenzie, ANIMAL PATHOLOGY TEACHER 05/19/2020 J01.90 Acute sinusitis, unspecified Ple skach Mckenzie, ANIMAL PATHOLOGY TEACHER 05/13/2020 K58.1 Irritable bowel syndrome with co nstipation Pleskach Mckenzie, ANIMAL PATHOLOGY TEACHER 05/13/2020 L30.1 Dyshidrosis [pompholyx] Mckenzie Warren FNP 05/13/2020 Z13.89 Encounter for screening for othe r disorder Mckenzie Warren FNP Plan of Treatment Future Appointment(s):* 08/25/2020 2:00 pm - Mckenzie Warren FNP at Main Office 06/14/2020 - Mckenzie Warren FNP* J02.9 Acute pharyngitis, unspecified* Comments:* was treated for strep in the ER. Current sx are more physician representative of chronic rhinitis, irritation. * Recommendations:* Use humidifiers in your home Take [...] CONSTIPATION AND STOMACHE U PSET Scheduled 06/23/[address] [place] [address] [phone]
--- OUTSIDE RECORDS SUMMARY | 2020-07-07 14:38 | CCD ---
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 Name Role Phone Pleskach, Mckenzie RN SPINE Unavailable Unavailable Pleskach, Mckenzie RN SPINE Unavailable Unavailable Pleskach, Mckenzie RN SPINE Unavailable Unavailable Pleskach, Mckenzie RN SPINE Unavailable Unavailable Pleskach, Mckenzie RN SPINE Unavailable Unavailable Pleskach, Mckenzie RN SPINE Unavailable Unavailable Pleskach, Mckenzie RN SPINE Unavailable Unavailable Pleskach, Mckenzie RN SPINE Unavailable Unavailable Pleskach, Mckenzie RN SPINE Unavailable Unavailable Pleskach, Mckenzie RN SPINE Unavailable Unavailable Pleskach, Mckenzie RN SPINE Unavailable Unavailable Pleskach, Mckenzie RN SPINE Unavailable Unavailable Pleskach, Mckenzie RN SPINE Unavailable Unavailable Pleskach, Mckenzie RN SPINE Unavailable Unavailable Pleskach, Mckenzie RN SPINE Unavailable Unavailable Pleskach, Mckenzie RN SPINE Unavailable Unavailable Pleskach, Mckenzie RN SPINE Unavailable Unavailable Pleskach, Mckenzie RN SPINE Unavailable Unavailable Pleskach, Mckenzie RN SPINE Unavailable Unavailable Pleskach, Mckenzie RN SPINE Unavailable Unavailable Pleskach, Mckenzie RN SPINE Unavailable Unavailable Pleskach, Mckenzie RN SPINE Unavailable Unavailable Pleskach, Mckenzie RN SPINE Unavailable Unavailable Pleskach, Mckenzie RN SPINE Unavailable Unavailable Pleskach, Mckenzie RN SPINE Unavailable Unavailable Pleskach, Mckenzie RN SPINE Unavailable Unavailable Pleskach, Mckenzie RN SPINE Unavailable Unavailable Pleskach, Mckenzie RN SPINE Unavailable Unavailable Pleskach, Mckenzie RN SPINE Unavailable Unavailable ELEANOR (AYLIN), Deepa GUNDERSON MD Unavailable Unavailab le ELEANOR (AYLIN), Deepa GUNDERSON MD Unavailable Unavailab le ELEANOR (AYLIN), Deepa GUNDERSON MD Unavailable Unavailab le ELEANOR (AYLIN), Deepa GUNDERSON MD Unavailable Unavailab le ELEANOR (AYLIN), Deepa GUNDERSON MD Unavailable Unavailab le ELEANOR (AYLIN), Deepa GUNDERSON MD Unavailable Unavailab le ELEANOR (AYLIN), Deepa GUNDERSON MD Unavailable Unavailab le ELEANOR (AYLIN), Deepa GUNDERSON MD Unavailable Unavailab le ELEANOR (AYLIN), Deepa GUNDERSON MD Unavailable Unavailab le ELEANOR (AYLIN), Deepa GUNDERSON MD Unavailable Unavailab le ELEANOR (AYLIN), Deepa GUNDERSON MD Unavailable Unavailab le ELEANOR (AYLIN), Deepa GUNDERSON MD Unavailable Unavailab le ELEANOR (AYLIN), Deepa GUNDERSON MD Unavailable Unavailab le ELEANOR (AYLIN), Deepa GUNDERSON MD Unavailable Unavailab le ELEANOR (AYLIN), Deepa GUNDERSON MD Unavailable Unavailab le ELEANOR (AYLIN), Deepa GUNDERSON MD Unavailable Unavailab le ELEANOR (AYLIN), Deepa GUNDERSON MD Unavailable Unavailab le ELEANOR (AYLIN), Deepa GUNDERSON MD Unavailable Unavailab le ELEANOR (AYLIN), Deepa GUNDERSON MD Unavailable Unavailab le ELEANOR (AYLIN), Deepa GUNDERSON MD Unavailable Unavailab le ELEANOR (AYLIN), Deepa GUNDERSON MD Unavailable Unavailab le ELEANOR (AYLIN), Deepa GUNDERSON MD Unavailable Unavailab le ELEANOR (AYLIN), Deepa GUNDERSON MD Unavailable Unavailab le ELEANOR (AYLIN), Deepa GUNDERSON MD Unavailable Unavailab le ELEANOR (AYLIN), Deepa GUNDERSON MD Unavailable Unavailab le ELEANOR (AYLIN), Deepa GUNDERSON MD Unavailable Unavailab le ELEANOR (AYLIN), Deepa GUNDERSON MD Unavailable Unavailab le ELEANOR (AYLIN), Deepa GUNDERSON MD Unavailable Unavailab le ELEANOR (AYLIN), Deepa GUNDERSON MD Unavailable Unavailab le ELEANOR (AYLIN), Deepa GUNDERSON MD Unavailable Unavailab le ELEANOR (AYLIN), Deepa GUNDERSON MD Unavailable Unavailab le ELEANOR (AYLIN), Deepa GUNDERSON MD Unavailable Unavailab le ELEANOR (AYLIN), Deepa GUNDERSON MD Unavailable Unavailab le ELEANOR (AYLIN), Deepa GUNDERSON MD Unavailable Unavailab le ELEANOR (AYLIN), Deepa GUNDERSON MD Unavailable Unavailab le ELEANOR (AYLIN), Deepa GUNDERSON MD Unavailable Unavailab le ELEANOR (AYLIN), Deepa GUNDERSON MD Unavailable Unavailab le ELEANOR (AYLIN), Deepa GUNDERSON MD Unavailable Unavailab le ELEANOR (AYLIN), Deepa GUNDERSON MD Unavailable Unavailab le ELEANOR (AYLIN), Deepa GUNDERSON MD Unavailable Unavailab le ELEANOR (AYLIN), Deepa GUNDERSON MD Unavailable Unavailab le ELEANOR (AYLIN), Deepa GUNDERSON MD Unavailable Unavailab le ELEANOR (AYLIN), Deepa GUNDERSON MD Unavailable Unavailab le ELEANOR (AYLIN), Deepa GUNDERSON MD Unavailable Unavailab le ELEANOR (AYLIN), Deepa GUNDERSON MD Unavailable Unavailab le ELEANOR (AYLIN), Deepa GUNDERSON MD Unavailable Unavailab le ELEANOR (AYLIN), Deepa GUNDERSON MD Unavailable Unavailab le ELEANOR (AYLIN), Deepa GUNDERSON MD Unavailable Unavailab le EELANOR (AYLIN), Deepa GUNDERSON MD Unavailable Unavailab le ELEANOR (AYLIN), Deepa GUNDERSON MD Unavailable Unavailab le ELEANOR (AYLIN), Deepa GUNDERSON MD Unavailable Unavailab le ELEANOR (AYLIN), Deepa GUNDERSON MD Unavailable Unavailab le ELEANOR (AYLIN), Deepa GUNDERSON MD Unavailable Unavailab le ELEANOR (AYLIN), Deepa GUNDERSON MD Unavailable Unavailab le ELEANOR (AYLIN), Deepa GUNDERSON MD Unavailable Unavailab le ELEANOR (AYLIN), Deepa GUNDERSON MD Unavailable Unavailab le ELEANOR (AYLIN), Deepa GUNDERSON MD Unavailable Unavailab le ELEANOR (AYLIN), Deepa GUNDERSON MD Unavailable Unavailab le ELEANOR (AYLIN), Deepa GUNDERSON MD Unavailable Unavailab le ELEANOR (AYLIN), Deepa GUNDERSON MD Unavailable Unavailab le ELEANOR (AYLIN), Deepa GUNDERSON MD Unavailable Unavailab le ELEANOR (AYLIN), Deepa GUNDERSON MD Unavailable Unavailab le ELEANOR (AYLIN), Deepa GUNDERSON MD Unavailable Unavailab le ELEANOR (AYLIN), Deepa GUNDERSON MD Unavailable Unavailab le ELEANOR (AYLIN), Deepa GUNDERSON MD Unavailable Unavailab le ELEANOR (AYLIN), Deepa GUNDERSON MD Unavailable Unavailab le ELEANOR (AYLIN), Deepa GUNDERSON MD Unavailable Unavailab le ELEANOR (AYLIN), Deepa GUNDERSON MD Unavailable Unavailab le ELEANOR (AYLIN), Deepa GUNDERSON MD Unavailable Unavailab le ELEANOR (AYLIN), Deepa GUNDERSON MD Unavailable Unavailab le ELEANOR (AYLIN), Deepa GUNDERSON MD Unavailable Unavailab le ELEANOR (AYLIN), Deepa GUNDERSON MD Unavailable Unavailab le ELEANOR (AYLIN), Deepa GUNDERSON MD Unavailable Unavailab le ELEANOR (AYLIN), Deepa GUNDERSON MD Unavailable Unavailab le ELEANOR (AYLIN), Deepa GUNDERSON MD Unavailable Unavailab le ELEANOR (AYLIN), Deepa GUNDERSON MD Unavailable Unavailab le ELEANOR (AYLIN), M JALYN MD Unavailable Unavailab le ELEANOR (AYLIN), M JALYN MD Unavailable Unavailab le ELEANOR (AYLIN), M JALYN MD Unavailable Unavailab le ELEANOR (AYLIN), M JALYN MD Unavailable Unavailab le ELEANOR (AYLIN), M JALYN MD Unavailable Unavailab le ELEANOR (AYLIN), M JALYN MD Unavailable Unavailab le ELEANOR (AYLIN), M JALYN MD Unavailable Unavailab le ELEANOR (AYLIN), M JALYN MD Unavailable Unavailab le ELEANOR (AYLIN), M JALYN MD Unavailable Unavailab le ELEANOR (AYLIN), M JALYN MD Unavailable Unavailab le ELEANOR (AYLIN), M JALYN MD Unavailable Unavailab le ELEANOR (ALYIN), M JALYN MD Unavailable Unavailab le ELEANOR (AYLIN), M JALYN MD Unavailable Unavailab le ELEANOR (AYLIN), M JALYN MD Unavailable Unavailab le ELEANOR (AYLIN), M JALYN MD Unavailable Unavailab le ELEANOR (AYLIN), Deepa CALIXTOA MD Unavailable Unavailab le Mccloud, Socorro Caitlyn PA Unavailable Unavailable Mccloud, Socorro Caitlyn PA Unavailable Unavailable Mccloud, Socorro Caitlyn PA Unavailable Unavailable Mccloud, Socorro Caitlyn PA Unavailable Unavailable Mccloud, Socorro Caitlyn PA Unavailable Unavailable Mccloud, Socorro Caitlyn PA Unavailable Unavailable Mccloud, Socorro Caitlyn PA Unavailable Unavailable Mccloud, Socorro Caitlyn PA Unavailable Unavailable Mccloud, Socorro Caitlyn PA Unavailable Unavailable Mccloud, Socorro Caitlyn PA Unavailable Unavailable Re-disclosure Warning The records that you are [...] is protected by Article 27-F of the [facility] Public Health law. If you continue you may have access to information: Regarding HIV / AIDS; Provided by facilities licensed or operated by the [facility] Office of Mental Health; or Provided by the [facility] Office for People With Developmental Disabilities. If such information is present, then the following [facility] mandated warning applies: This information has been [...] law may result in a fine or residential sentence or both. A general authorization for the release of medical or other information is NOT sufficient authorization for further disc losure. Encounters Encounter Providers Location Date Indications Data Source(s ) Attender: JALYN WEBSTER MD ([place]) 1 08:21:01 PM EST [facility] Attender: JALYN WEBSTER MD ([place]) 1 08:21:01 PM EST [facility] Attender: JALYN WEBSTER MD ([place]) 1 08:21:01 PM EST [facility] Attender: JALYN WEBSTER MD ([place]) 1 08:21:01 PM EST [facility] Attender: JALYN WEBSTER MD ([place]) 1 08:21:01 PM EST [facility] Outpatient Attender: Caitlyn Huang greer 06/22/2020 02:15:00 PM EST [facility] ([facility] Outpatient Attender: Mckenzie Warren [facility] Main Office 06/22/2020 1 2:30:00 PM EST [facility] Outpatient Attender: Mckenzie Warren [facility] Main Office 06/14/2020 0 9:45:00 AM EST [facility] ([facility] Outpatient Attender: Mckenzie Warren [facility] Main Office 05/27/2020 0 8:30:00 AM EST [facility] ([facility] Outpatient Attender: Mckenzie Warren [facility] Main Office 05/19/2020 1 0:45:00 AM EST [facility] ([facility] Outpatient Attender: Mckenzie Warren [facility] Main Office 05/13/2020 1 2:30:00 PM EST [facility] ([facility] Immunizations Vaccine Date Status Description Data Source(s) New in 2012. IIV4 06/22/2020 06:41:00 AM EST completed [facility] INFLUENZA VIRUS VACCINE QUADRIVALENT 2020-21 (6 MOS AN D UP) 06/22/2020 12:00:00 AM EST completed [facility] Medications Medication Brand Name Start Date Product Form Dose Route Admi nistrative Instructions Pharmacy Instructions Status Indications Reaction Description Data Source(s) Amoxicillin 875 MG / Clavulanate 125 MG Oral Tablet Am oxicillin/Clavulanate Potassium 05/19/2020 12:00:00 AM EST ORAL completed [facility] No Active Medications 05/13/2020 12:00:00 AM EST completed [facility] Docusate Sodium 100 MG Oral Capsule Docusate Sodium 05/13/2020 1 2:00:00 AM EST ORAL active [facility] ( [facility] Insurance Providers Payer name Policy type / Coverage type Policy ID Covered republican ID Covered republican's relationship to mendenhall Policy [place] Plan Information [facility] [id number] [facility] [id number] SP [id number] [facility] [id number] S [id number] O UNAVAILABLE UNAVAILA BLE [facility] [id number] SP [id number] [employer] [id number] SP [id number] [employer] EP[employer] O [id number] O [id number] SELF PAY ONLY [id number] Surgeries/Procedures Procedure Description Date Indications Data Source(s) Brief Emotional/Behav Assessment W/ Scoring Doc Per Standard [facility] 05/13/2020 12:00:00 AM EST [facility] Results ID Date Data Source [id number] 06/23/2020 11:00:00 AM EST [facility] Name Value Range Interpretation Code Description Data Anat rce(s) Supporting Document(s) First [facility] FXGGWf0wCcPXUcDbUCYbIzjHTMzaQBtuXJFaQ0M0XRnlVv3GMVesncPbNUWtNq5+JLXcXN6blr3fYZLr gMy 4sSAGaWqlvY3YbHCMvv56VBDWwXSiVZpEmJuZtWDUnPTAeUHWhWYF2DkMhSzupHO8jOOT1DUOlRHcdMK UoEBCsLIQsOaV8Ct1jLThwZBhqKf9JYE8mm1DbKSRrNYSnLfvVNJvyTHvoCIHeTKFfSSWpS594seTkDF 2XaFYaRBm3ESIiGxM1KDWeXdJ0VQDzMjHyHsKoIDFr C8Oay040nqZcwtY9XZ0RY7DcCZS8GDv9J1vxHxUtGOUkOKKbYL4cZrE4CGHgMm9SoHgbBADqEMAbXl3V kPw1MAO0HUDyGu7+Pj4+Ha7cbbIqYgrAKWVoMV2tdt31ZN6TvCUqGS0RPHlaQ06uARieCu66YKazEXSj BdAzQQr0Lr5iPjElb0NrR3XtUVe7T7dFWbaaA3QwPY ljLU1iHAN1CSYgDy5+Vb7pKVSjUX15XHVkPCTNI7VpexMtvhGzMFd8ZNHaLb0+Pz5ptzPaWrmIYIQsPI 1irn13KX2UBS1ftCriXrstFXP0Q53xtFZyP4npCiFsN1FeuEdpTBYjJY4gR2SsZKqpDHTaKO4gnjUnxB 8RxVt2SHLzUz2YwBB7MFFoQ62hCCRnDAGNKGBza4Zk PE0Iz7vfbiAbJZGaKJ5ZAYLrE1YQG1UmB0ftnAfoCTInAN1QLItojKLmLYf3RV9PyWBfFHYdZ90alW7u TC82SGa+CpB4gsFbiH8NlNgtx1XPSE783z0J8+KkLj8ZbYpZHZBSAVinBBCX5W1UuBpNXHVFm0Ljs3yh 7gwafAYd/OS/0949kK1krlk1zn5nypa28a8Z29uy38 [file] tN80I17VeRs9py/nr26IUPL2wsNYO3u+DANCER OR CHOREOGRAPHER/dcEFX4Yquzr63d+xYNhK6j7BUAJtfRM4Ucl99dmYn4VWk [file] 4c+r09ChLBd1r3G2C0owHBhZv2XW5Qm//p/mEG95a7Hvfi/NVkU4z0/Félix+TQcCrTFOUDX0eGIlaj5eZ [file] HHwe/IEKdCKbMF43RZpdk2pW1KmtinvPq8kqxvWmfEO1gEgqRrFagc8fwgYd/id+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/LQKHDOBEHPzr [file] 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+Ac3c/xcG/e/OkDA3e5BMI5LU3ZovirO5xq/GEeCC78SX+FBOoMxrwbEODxaXPraunrqA+hI1YgtE [file] Religious Healer/NFfDewmvu1Fq/f10WaMSsV5FnAhiR2KSIuHCk2ZHW2b/qq8J6pe83SF1mJSsTRe4Go/cfrJs0F4S [file] XiIGS41qDLQXedLdn/JG+mV2o4GoeSL3IpAJ3a gAWPJpqcOpbs9l+XQu+iBTMkV5GeVC3JkwxnDZgE0o3vHsc++WFmFjHtlVpk+CZA1ffnD1Ci8PQPiDxo EMwv8nhEWG5qv0FvMp/6XX79X4ojM3szaqurl2Xx8C8TeHOoX2hapTIckaDYt2V6B4kpaTaSQ+1pmpul Vt7teUBAD3xle/XsSvkPTtvFLGRhIttBPfVPfoPRNZ 1hynfbx37/cu5os3565lUHF6FyXMJsumsnZ9Y70a+IqntRw61Meb/xApGK1w/8OcKnwswqB88TirN/ls OSzs3+2Ji6I5X90eNBCSKHxFbXO2eE0yImEeUjrUwH14pJgmnZ3XpfLsv8PSmjPdYk4e9rxcIpw4zHWQ yax7blaqh9Gf1Fieulv5jE+9YtUy5D4mJsvQgSQMeI 39BOExsQrA84XdU4DBHdl3p7N8tp4pTw5yQrhLIfzF94vpfb4JsGv+/Xnz5qUVy3QoHYNKYk2ods+gM6 xk8mSDvGd8daP+Kq1gG4/Ll0TEMNxvrkY/fXXuTIjfib4lpq2oaUIkU6W5tj381lBN3Nd4eGmV+dS68D aNkzVdPFOeUaCnUDaGN2rS1CaWyYvvsmKx4YUA0q+7 iVO0x70u+ydsRky5U+Bennett/84SBNGENB7W/AwDgMlq4g1rRVPKeRZTgxTT6XMmgnfzmcIDXnvri2AKkl3 [file] e9j5LiClXY53BhPOIMI9mL1Nays3xv7nwfjbLd/Mary Ann [file] UDH+CAP MACHINE OPERATOR+tmqPqg+AQwRWQhgGlrTc9KQSuWScMy/ObMyp2C8hSQV1/l+cufldXr6jAdDBVWXZ57ehPo0Dt [file] IF4qdT7hjWF0Ty9xoi3H1vF2L/andrés/F34Jza/045I2RIErk3uQgqVuNR4UCmOUNbkWb8qNMehUZSm6Zx JgAi6+lPZSjvc+Oe6RoD3naULetU61iALbYn8wmGpL YiZKlX4Hn0AvyQd9CIrQAHAOmwCtrca3Hny3gZIONhI/xgnn2dTu/aVcQ6n4bX/yhrVDO01AysnYfoOO FNPhrd+/4yIHJr5rO+g1GpduHVEr/jDkizRQUIo7TrmVbNZB/oS7XlF5vRcwVODsVCS/Arie+EpLqRwhR 0wn8+9LQS526nt/IGBDP8OQn7lBnhZN6newXpt1Js/ /jQWQhFOpbHbOLNZi3CAX+Swb1cKYAjXolWjxr2t/xSjUeCBEBLisiGhLbVvpsj2CH4/o+h3AZ/sWUdi GAWl2HtfXgKmQjScU+0VuixY/McaJRHhExUh8m5erF+nZk/ND1MPBKGyEePvrqLzJrawCYyDgooCrSAf 3dqseUBvsgvLUIwrkjjaDfpWCuZSo/bUzlgr6+ju24 [file] I92GrtbSoTofutNr2eYJ2iE2+l8RsKmB/59sNZcv5oNoJYENABqku7y3F175E4GimPR4BL+Carlos Alberto+Ib8g6 [file] 3YGSGYp1CYfL8mFjtnnvgR0bZJrE/1w+AIzXbX [file] wAm/multi purpose machine operator/B2rVPFpNtWt0+Endn3Wf+bTHlVahFY7jsH [file] VLl70uBC+ribbing machine operator/b2FcQw5pmVJUlZ9xwbJGWbqwp420D3EL+UidoGZ3akjys3/PcbxazuLAStKTmXQwzGW [file] 8JOEkmSTXW2ApD7Y5QYS7sl9TlCZNgXQnbzeMwUtrOGDruyFChtFaqDYCMQdfbRLs1PS7QUIXSF9K= ID Date Data Source [id number] 06/22/2020 12:00:00 AM EST [facility] Name Value Range Interpretation Code Description Data Anat rce(s) Supporting Document(s) SARS coronavirus 2 Ag Negative [facility] This lab was ordered by [facility] and [facility] ID Date Data Source [id number] 06/21/2020 07:41:00 PM EST [facility] ([facility] Name Value Range Interpretation Code Description Data Anat rce(s) Supporting Document(s) Color, Urine RFX Laboratory test result [facility] Appearance, Urine RFX Laboratory test result [facility] Specific [place] Ur Auto RFX 1.016 1.002-1.035 [facility] PH,Urine RFX 7.0 units 5.0-9.0 [facility] Ketone, Urine Auto RFX Laboratory test result [facility] Glucose, Urine (Ua) Auto RFX Laboratory test result [facility] Protein, Urine Auto RFX Laboratory test result [facility] ([facility] Urobilinogen, Urine Auto RFX 0.2 mg/dL 0.0-2.0 [facility] Nitrite, Urine Auto RFX Laboratory test result [facility] Bilirubin, Urine Auto RFX Laboratory test result [facility] ([facility] Leukocyte Esterase Ur Auto RFX Laboratory test result [facility] Blood, Urine Blood RFX Laboratory test result [facility] WBC, Urine Auto RFX 0 /HPF 0-3 [facility] Bacteria, Urine Auto RFX Laboratory test result [facility] RBC, Urine Auto RFX 0 /HPF 0-3 [facility] Squam Epithelial Cell Ur Aurfx 6 /HPF 0-6 [facility] Mucus, Urine RFX Laboratory test result [facility] Hyaline Cast, Urine Auto RFX 0 /LPF 0-1 [facility] ID Date Data Source [id number] 06/21/2020 07:41:00 PM EST [facility] ([facility] Name Value Range Interpretation Code Description Data Anat rce(s) Supporting Document(s) Hemoglobin 11.8 g/dL 12.0-15.5 [facility] Red Blood Count 4.04 10 4.00-5.40 [facility] White Blood Count 5.8 10 4.0-10.0 [facility] Mean Corpuscular Volume 91.6 fl 80.0-96.0 M [facility] ([facility] Mean Corpuscular Hemoglobin 29.2 pg 27.0-33.0 [facility] Hematocrit 37.0 % 36.0-47.0 [facility] Red Cell Distribution Width 12.2 % 11.5-14.5 [facility] Platelet Count, Automated 222 10 150-450 [facility] Mean Corpuscular HGB Conc 31.9 g/dL 32.0-36.5 [facility] Lymph % 38.7 % 24.0-44.0 [facility] Neutrophils % 50.2 % 36.0-66.0 [facility] Eos % 5.2 % 0.0-3.0 [facility] Green % 4.8 % 0.0-5.0 [facility] Baso % 0.9 % 0.0-1.0 [facility] Immature Granulocyte % 0.2 % 0-3.0 [facility] Neutrophils # 2.9 10 1.5-8.5 [facility] Nucleated Red Blood Cell % 0.0 % 0-0 [facility] ([facility] Lymph # 2.3 10 1.5-5.0 [facility] Green # 0.3 10 0.0-0.8 [facility] Baso # 0.1 10 0.0-0.2 [facility] Eos # 0.3 10 0.0-0.5 [facility] ID Date Data Source [id number] 06/21/2020 07:41:00 PM EST [facility] ([facility] Name Value Range Interpretation Code Description Data Anat rce(s) Supporting Document(s) Creatinine For GFR 0.66 mg/dL 0.55-1.30 [facility] Glucose, Fasting 85 mg/dL 70-100 [facility] Blood Urea Nitrogen 9 mg/dL 7-18 [facility] Sodium Level 142 meq/L 136-145 [facility] Chloride Level 108 meq/L 98-107 [facility] Potassium Serum 3.9 meq/L 3.5-5.1 [facility] Anion Gap 5 meq/L 8-16 [facility] Carbon Dioxide Level 29 meq/L 21-32 [facility] Calcium Level 9.0 mg/dL 8.5-10.1 [facility] ID Date Data Source [id number] 06/21/2020 07:41:00 PM EST [facility] ([facility] Name Value Range Interpretation Code Description Data Anat rce(s) Supporting Document(s) Choriogonadotropin.beta subunit ( test) [Pres ence] in Serum or Plasma Laboratory test result [facility] ([facility] <content>note:<nlbl:demographic_changed> </content>
<content></content> ID Date Data Source [id number] 06/21/2020 07:41:00 PM EST [facility] ([facility] Name Value Range Interpretation Code Description Data Anat rce(s) Supporting Document(s) Chlamydia Dna Amplification Laboratory test result [facility] A negative test result does not exclude the possibility of infection because test results may be affected by improper specimen collection, technical error, specimen mix-up, concurrent antibiotic therapy, or the number of organisms in the specimen which may be below the sensitivity of the test. GC Dna Amplification Laboratory test result [facility] A negative test result does not exclude the possibility of infection because test results may be affected by improper specimen collection, technical error, specimen mix-up, concurrent antibiotic therapy, or the number of organisms in the specimen which may be below the sensitivity of the test. Laboratory test finding (navigational concept) Laboratory test result [facility] ([facility] A negative test result does not exclude the possibility of infection because test results may be affected by improper specimen collection, technical error, sample mix-up, or because the number of organisms in the sample is below the limit of detection of the test. ID Date Data Source [id number] 06/21/2020 07:41:00 PM EST [facility] ([facility] Name Value Range Interpretation Code Description Data Anat rce(s) Supporting Document(s) Wet Prep Laboratory test result [facility] ([facility] MANY EPITHELIAL CELLS PRESENT MODERATE LONG RODS PRESENT MODERATE SHORT RODS PRESENT MODERATE WBC FEW RBC ID Date Data Source [id number] 06/21/2020 07:37:00 PM EST [facility] ([facility] Name Value Range Interpretation Code Description Data Anat rce(s) Supporting Document(s) Urine Culture Laboratory test result [facility] ([facility] FULL REPORT IN LAB NOTES ([facility] and [facility] ). NO GROWTH CLINICAL SIGNIFICANCE 2 OR MORE ORGANISMS ID Date Data Source [id number] 06/07/2020 12:00:00 AM EST [facility] Name Value Range Interpretation Code Description [facility] Supporting Document(s) SARS-CoV2 Rapid Antigen [facility] This lab was ordered by [facility] and reported by [facility]. ID Date Data Source [id number] 05/25/2020 09:22:00 PM EST [facility] ([facility] Name Value Range Interpretation Code Description Data Anat rce(s) Supporting Document(s) Choriogonadotropin.beta subunit [Moles/volume] in Seru m or Plasma Laboratory test result [facility] ([facility] <content>QUANTITATIVE RESULT QU ALITATIVE INTERPRETATION</content>
<content> </content>
<content><5.0 IU/L NEGATIVE</content>
<content>5.0 - 25.0 IU/L INDETERMINATE</content>
<content>>25.0 IU/L POSITIVE</content>
<content></content> ID Date Data Source [id number] 05/18/2020 11:16:00 AM EST [facility] ([facility] Name Value Range Interpretation Code Description Data Anat rce(s) Supporting Document(s) Glucose, Fasting 107 mg/dL 70-100 [facility] ([facility] Creatinine For GFR 0.79 mg/dL 0.55-1.30 [facility] ([facility] Sodium Level 139 meq/L 136-145 [facility] Blood Urea Nitrogen 9 mg/dL 7-18 [facility] ([facility] Potassium Serum 3.9 meq/L 3.5-5.1 [facility] ([facility] Chloride Level 107 meq/L 98-107 [facility] Anion Gap 4 meq/L 8-16 [facility] Calcium Level 9.5 mg/dL 8.5-10.1 [facility] ([facility] Carbon Dioxide Level 28 meq/L 21-32 [facility] ([facility] Ast/Sgot 8 U/L 7-37 [facility] Alkaline Phosphatase 70 U/L 45-117 [facility] Alt/SGPT 19 U/L 12-78 [facility] Albumin 3.9 GM/DL 3.2-5.2 [facility] Total Protein 7.3 GM/DL 6.4-8.2 [facility] ([facility] Bilirubin,Total 0.4 mg/dL 0.2-1.0 [facility] ([facility] Albumin/Globulin Ratio 1.1 1.2-2.2 [facility] ([facility] ID Date Data Source [id number] 05/18/2020 11:16:00 AM EST [facility] ([facility] Name Value Range Interpretation Code Description Data Anat rce(s) Supporting Document(s) White Blood Count 4.8 10 4.0-10.0 [facility] ([facility] Red Blood Count 4.32 10 4.00-5.40 [facility] ([facility] [facility] Hemoglobin 12.9 g/dL 12.0-15.5 [facility] ([facility] Hematocrit 39.7 % 36.0-47.0 [facility] ([facility] Mean Corpuscular Volume 91.9 fl 80.0-96.0 M EDENT ([facility] Mean Corpuscular HGB Conc 32.5 g/dL 32.0-36.5 [facility] ([facility] Mean Corpuscular Hemoglobin 29.9 pg 27.0-33.0 [facility] ([facility] Red Cell Distribution Width 11.9 % 11.5-14.5 [facility] ([facility] Neutrophils % 50.9 % 36.0-66.0 [facility] ([facility] Platelet Count, Automated 251 10 150-450 [facility] ([facility] Lymph % 36.6 % 24.0-44.0 [facility] ([facility] Green % 4.2 % 0.0-5.0 [facility] ([facility] Eos % 7.2 % 0.0-3.0 [facility] ([facility] Immature Granulocyte % 0.0 % 0-3.0 [facility] ([facility] Baso % 1.1 % 0.0-1.0 [facility] ([facility] Nucleated Red Blood Cell % 0.0 % 0-0 MED ENT ([facility] Lymph # 1.7 10 1.5-5.0 [facility] ([facility] Neutrophils # 2.4 10 1.5-8.5 [facility] ([facility] Eos # 0.3 10 0.0-0.5 [facility] ([facility] Green # 0.2 10 0.0-0.8 [facility] ([facility] Baso # 0.1 10 0.0-0.2 [facility] ([facility] ID Date Data Source [id number] 05/18/2020 11:16:00 AM EST [facility] ([facility] Name Value Range Interpretation Code Description Data Anat rce(s) Supporting Document(s) Thyrotropin [Units/volume] in Serum or Plasma 0.407 uIU/ML 0.463-3.98 [facility] ([facility] <content>note:<nlbl:demographic_changed> </content>
<content></content> Thyroxine (T4) free [Mass/volume] in Serum or Plasma 1.15 ng/dL 0.78- 1.33 [facility] ([facility] <content>note:<nlbl:demographic_changed> </content>
<content></content> ID Date Data Source [id number] 05/18/2020 11:16:00 AM EST [facility] ([facility] Name Value Range Interpretation Code Description Data Anat rce(s) Supporting Document(s) Tissue transglutaminase IgA Ab [Units/volume] in Serum Labor atory test result 0-3 [facility] ([facility] Negative 0 - 3 Weak Positive 4 - 10 Positive >10 . Tissue Transglutaminase (tTG) has been identified as the endomysial antigen. Studies have demonstr- ated that endomysial IgA antibodies have over 99% specificity for gluten sensitive enteropathy. Performed at: [facility] [id number] Campaign Specialist: Wen Webb MD, Phone: [phone] Procedure Social History Code Duration Value Status Description Data Source(s ) Smoking 06/22/2020 12:00:00 AM EST Patient has never smoked co mpleted Patient has never smoked [facility] ([facility]) Smoking 06/22/2020 12:00:00 AM EST Patient has never smoked co mpleted Patient has never smoked [facility] ([facility] Vital Signs ID Date Data Source UNK Name Value Range Interpretation Code Description Data Source(s) Systolic blood pressure 106 mm[Hg] 106 mm[Hg] M EDENT ([facility], [facility]) Diastolic blood pressure 71 mm[Hg] 71 mm[Hg] [facility] Heart rate 93 /min 93 /min [facility] ([facility], [facility]) Respiratory rate 16 /min 16 /min [facility] ( [facility]) Oxygen saturation in Arterial blood by Pulse oximetry 98 % 98 % [facility] ([facility]) Body temperature 98.2 [degF] 98.2 [degF] [facility] ([facility]) Body weight 142.00 [lb_av] 142.00 [lb_av] MEDEN T ([facility]) Body height 64 [in_i] 64 [in_i] [facility] ([facility]) 5'4" Body mass index (BMI) [Ratio] 24.4 kg/m2 24.4 k g/m2 [facility] ([facility]) [place] body weight 120 [lb_av] 120 [lb_av] MEDEN T ([facility] Body mass index (BMI) [Ratio] 24.2 kg/m2 24.2 k g/m2 [facility] ([facility] Systolic blood pressure 118 mm[Hg] 118 mm[Hg] EDENT ([facility] Diastolic blood pressure 68 mm[Hg] 68 mm[Hg] [facility] ([facility] Heart rate 82 /min 82 /min [facility] ([facility] Body temperature 98.5 [degF] 98.5 [degF] [facility] ([facility] Respiratory rate 16 /min 16 /min [facility] ( [facility] Body height 64.25 [in_i] 64.25 [in_i] [facility] ([facility] 5'4.25" Body weight 142.38 [lb_av] 142.38 [lb_av] MEDEN T ([facility] Oxygen saturation in Arterial blood by Pulse oximetry 98 % 98 % [facility] ([facility] Systolic blood pressure 113 mm[Hg] 113 mm[Hg] M EDENT ([facility] Diastolic blood pressure 59 mm[Hg] 59 mm[Hg] [facility] ([facility] Heart rate 81 /min 81 /min [facility] ([facility] Body temperature 98.0 [degF] 98.0 [degF] [facility] ([facility] Respiratory rate 16 /min 16 /min [facility] ( [facility] Body height 64.25 [in_i] 64.25 [in_i] [facility] ([facility] 5'4.25" Body weight 137.12 [lb_av] 137.12 [lb_av] MEDEN T ([facility] Oxygen saturation in Arterial blood by Pulse oximetry 99 % 99 % [facility] ([facility] [place] body weight 120 [lb_av] 120 [lb_av] MEDEN T ([facility] Body mass index (BMI) [Ratio] 23.4 kg/m2 23.4 k g/m2 [facility] ([facility] Systolic blood pressure 104 mm[Hg] 104 mm[Hg] M EDENT ([facility] Diastolic blood pressure 62 mm[Hg] 62 mm[Hg] [facility] ([facility] Heart rate 85 /min 85 /min [facility] ([facility] Body temperature 97.3 [degF] 97.3 [degF] [facility] ([facility] Respiratory rate 16 /min 16 /min [facility] ( [facility] Body height 64.25 [in_i] 64.25 [in_i] [facility] ([facility] 5'4.25" Body weight 138.38 [lb_av] 138.38 [lb_av] MEDEN T ([facility] Oxygen saturation in Arterial blood by Pulse oximetry 98 % 98 % [facility] ([facility] [place] body weight 120 [lb_av] 120 [lb_av] MEDEN T ([facility] Body mass index (BMI) [Ratio] 23.6 kg/m2 23.6 k g/m2 [facility] ([facility] Body weight 139.50 [lb_av] 139.50 [lb_av] MEDEN T ([facility] Oxygen saturation in Arterial blood by Pulse oximetry 97 % 97 % [facility] ([facility] [place] body weight 120 [lb_av] 120 [lb_av] MEDEN T ([facility] Body mass index (BMI) [Ratio] 23.8 kg/m2 23.8 k g/m2 [facility] ([facility] Systolic blood pressure 124 mm[Hg] 124 mm[Hg] M EDENT ([facility] Diastolic blood pressure 72 mm[Hg] 72 mm[Hg] [facility] ([facility] Heart rate 80 /min 80 /min [facility] ([facility] Body temperature 97.5 [degF] 97.5 [degF] [facility] ([facility] Respiratory rate 18 /min 18 /min [facility] ( [facility] Body height 64.25 [in_i] 64.25 [in_i] [facility] ([facility] 5'4.25" Systolic blood pressure 115 mm[Hg] 115 mm[Hg] M EDENT ([facility] Diastolic blood pressure 73 mm[Hg] 73 mm[Hg] [facility] ([facility] Heart rate 75 /min 75 /min [facility] ([facility] Body temperature 96.8 [degF] 96.8 [degF] [facility] ([facility] Respiratory rate 16 /min 16 /min [facility] ( [facility] Body height 64.25 [in_i] 64.25 [in_i] [facility] ([facility] 5'4.25" Body weight 139.38 [lb_av] 139.38 [lb_av] MEDEN T ([facility] Oxygen saturation in Arterial blood by Pulse oximetry 99 % 99 % [facility] ([facility] [place] body weight 120 [lb_av] 120 [lb_av] MEDEN T ([facility] Body mass index (BMI) [Ratio] 23.7 kg/m2 23.7 k g/m2 [facility] ([facility]
--- OUTSIDE RECORDS SUMMARY | 2020-07-07 14:38 | CCD | Continuity of Care Document ---
Author Author Roberto WARREN [facility] Organization Unknown Address [address] [place] [address] Phone [phone] Problems Description No Information Available Social History [...] Flow Rate 402 Estimated Peak Flow Rate [place] Body Weight 120 lb BMI (Body Mass Index) 23.8 kg/m2 05/13/2020 1:11pm BP Systolic 115 mmHg BP Diastolic 73 mmHg Heart Rate 75 /min Body Temperature 96.8 F Respiratory Rate 16 /min Height 64.25 inches 5'4.25" Weight 139.38 lb O2 % BldC Oximetry 99 % Peak Expiratory Flow Rate 402 Estimated Peak Flow Rate Last Menstrual Period [id number] [place] Body Weight 120 lb BMI (Body Mass Index) 23.7 kg/m2 Results Test Acquired Date Facility Test Result H/L Range Note Comprehensive Metabolic Profil 05/18/2020 [facility] [phone] Glucose, Fasting 107 mg/dL High 70-100 Blood [...] 1.1 Low 1.2-2.2 CBC With Differential 05/18/2020 [facility] [phone] White Blood Count 4.8 10 Normal 4.0-10.0 [...] 36.0-66.0 Lymph % 36.6 % Normal 24.0-44.0 [place] % 4.2 % Normal 0.0-5.0 Eos % 7.2 % High 0.0-3.0 Baso % 1.1 % High 0.0-1.0 Immature Granulocyte % 0.0 % Normal 0-3.0 Nucleated Red Blood Cell % 0.0 % Normal 0-0 Neutrophils # 2.4 10 Normal 1.5-8.5 Lymph # 1.7 10 Normal 1.5-5.0 [place] # 0.2 10 Normal 0.0-0.8 Eos # 0.3 10 Normal 0.0-0.5 Baso # 0.1 10 Normal 0.0-0.2 TSH And T4 Free ([facility]) 05/18/2020 [facility] [phone] Thyroid Stimulating Hormone 0.407 uIU/ML Low 0. 463-3.98 1 Free T4 1.15 ng/dL Normal 0.78-1.33 2 Laboratory test finding 05/18/2020 [facility] [phone] Tissue Transglutaminase Iga <pending> 1 note:<nlbl:demographic_[facility] ed> 2 note:<nlbl:demographic_[facility] ed> Procedures Date Code Description Status 05/13/2020 70102 Brief Emotional/Beha v Assessment W/ Scoring Doc [...]
--- OUTSIDE RECORDS SUMMARY | 2020-07-07 14:38 | CCD ---
Continuity of Care Document (CCD) Created on: 05/19/2020 Roberto Coreas External Reference #: [id number] : 2000 Sex: Female Author Author Roberto WARREN [facility] Organization Unknown Address [address] [place] [address] Phone [phone] Problems Description No Information Available Social History [...] Flow Rate 402 Estimated Peak Flow Rate [place] Body Weight 120 lb BMI (Body Mass Index) 23.8 kg/m2 05/13/2020 1:11pm BP Systolic 115 mmHg BP Diastolic 73 mmHg Heart Rate 75 /min Body Temperature 96.8 F Respiratory Rate 16 /min Height 64.25 inches 5'4.25" Weight 139.38 lb O2 % BldC Oximetry 99 % Peak Expiratory Flow Rate 402 Estimated Peak Flow Rate Last Menstrual Period [id number] [place] Body Weight 120 lb BMI (Body Mass Index) 23.7 kg/m2 Results Test Acquired Date Facility Test Result H/L Range Note Comprehensive Metabolic Profil 05/18/2020 [facility] [phone] Glucose, Fasting 107 mg/dL High 70-100 Blood [...] 1.1 Low 1.2-2.2 CBC With Differential 05/18/2020 [facility] [phone] White Blood Count 4.8 10 Normal 4.0-10.0 [...] 36.0-66.0 Lymph % 36.6 % Normal 24.0-44.0 [place] % 4.2 % Normal 0.0-5.0 Eos % 7.2 % High 0.0-3.0 Baso % 1.1 % High 0.0-1.0 Immature Granulocyte % 0.0 % Normal 0-3.0 Nucleated Red Blood Cell % 0.0 % Normal 0-0 Neutrophils # 2.4 10 Normal 1.5-8.5 Lymph # 1.7 10 Normal 1.5-5.0 [place] # 0.2 10 Normal 0.0-0.8 Eos # 0.3 10 Normal 0.0-0.5 Baso # 0.1 10 Normal 0.0-0.2 TSH And T4 Free ([facility]) 05/18/2020 [facility] [phone] Thyroid Stimulating Hormone 0.407 uIU/ML Low 0. 463-3.98 1 Free T4 1.15 ng/dL Normal 0.78-1.33 2 Laboratory test finding 05/18/2020 [facility] [phone] Tissue Transglutaminase Iga <pending> 1 note:<nlbl:demographic_[facility] ed> 2 note:<nlbl:demographic_[facility] ed> Procedures Date Code Description Status 05/13/2020 16423 Brief Emotional/Beha v Assessment W/ Scoring Doc Per Standard Inst Completed Medical Devices Description No Information Available Encounters Type Date Location Provider Dx Diagnosis Office Visit 05/13/2020 1:30p Main Office Mckenzie [...]
--- OUTSIDE RECORDS SUMMARY | 2020-07-07 14:38 | CCD | Continuity of Care Document ---
Author Author Roberto BRANDT Organization Unknown Address [address] [place] [address] Phone [phone] Problems Description No Information Available Social History Type Date Description Comments Sex Unknown Tobacco Use Start: Unknown Never Used Smokeless Tobacco ETOH Use Denies alcohol use Tobacco Use Start: Unknown Patient has never smoked Recreational Drug Use Denies Drug Use Smoking Status Reviewed: 05/13/20 Patient has never smoked Exercise Type/Frequency Exercises [...] mouth twice a day 60caps K58.1 Mckenzie Brandt FNP 05/13/2020 History Medications No Active Medications Unknown 03/2020 - 05/13/2020 Immunizations Description No Information Available Vital Signs Date Vital Result Comment 05/13/2020 1:11pm BP Systolic 115 mmHg BP Diastolic 73 mmHg Heart Rate 75 /min Body Temperature 96.8 F Respiratory Rate 16 /min Height 64.25 inches 5'4.25" Weight 139.38 lb O2 % BldC Oximetry 99 % Peak Expiratory Flow Rate 402 Estimated Peak Flow Rate Last Menstrual Period [id number] [place] Body Weight 120 lb BMI (Body Mass Index) 23.7 kg/m2 Results Description No Information Available Procedures Description No Information Available Medical Devices Description No Information Available Encounters Description No Information Available Assessments Date Code Description Provider 05/13/2020 K58.1 Irritable bowel syndrome with co nstipation Mckenzie Brandt FNP Plan of Treatment 05/13/2020 - Mckenzie Brandt FNP* K58.1 Irritable bowel syndrome with constipation* New Medication:* Docusate Sodium 100 mg - 1 by mouth twice a day * New Labs:* Comprehensive Metabolic Profil, Scheduled: 05/13/20 * CBC With Differential, Scheduled: 05/13/20 * TSH And T4 Free ([facility]), Scheduled: 05/13/20 * Tissue Transglutaminase Iga, Scheduled: 05/13/20 * Follow up:* one month Functional Status Functional Condition Comment Date Status Glasses Active Independent with all ADL's Activ e Independent with all IADL's Acti ve Mental Status Mental Condition Comment Date Status None Active Can Understand Information Activ e Referrals Description No Information Available
--- OUTSIDE RECORDS SUMMARY | 2020-07-07 14:38 | CCD | Continuity of Care Document ---
Author Author Roberto BRANDT Organization Unknown Address [address] [place] [address] Phone [phone] Problems Description No Information Available Social History [...] Estimated Peak Flow Rate Last Menstrual Period [id number] [place] Body Weight 120 lb BMI (Body Mass Index) 23.7 kg/m2 Results Description No Information Available Procedures Date Code Description Status 05/13/2020 65514 Brief Emotional/Beha v Assessment W/ Scoring Doc Per Standard Inst Completed Medical Devices Description No Information Available Encounters Type Date Location Provider Dx Diagnosis Office Visit 05/13/2020 1:30p Main Office Mckenzie Brandt FNP K58.1 Irritable bowel syndrome with constipation L30.1 Dyshidrosis [pompholyx] Z13.89 Encounter for screening for other disorder Assessments Date Code Description Provider 05/13/2020 K58.1 Irritable bowel syndrome with co nstipation Mckenzie Brandt FNP 05/13/2020 L30.1 Dyshidrosis [pompholyx] Mckenzie Brandt FNP 05/13/2020 Z13.89 Encounter for screening for othe r disorder Mckenzie Brandt FNP Plan of Treatment Future Appointment(s):* 06/15/2020 1:00 pm - Mckenzie Brandt FNP at Main Office 05/13/2020 - Mckenzie Brandt FNP* K58.1 Irritable bowel syndrome with constipation* New Medication:* Docusate Sodium 100 mg - 1 by mouth twice a day * New Labs:* Comprehensive Metabolic Profil, Scheduled: 05/13/20 * CBC With Differential, Scheduled: 05/13/20 * TSH And T4 Free ([facility]), Scheduled: 05/13/20 * Tissue Transglutaminase Iga, Scheduled: 05/13/20 * Comments:* will get labs to further evaluate possible causes * Follow up:* one month * L30.1 Dyshidrosis [pompholyx]* Comments:* advised patient to use OTC hydrocortisone cream * Z13.89 Encounter for screening for other disorder Functional Status Functional Condition Comment Date Status Glasses Active Independent with all ADL's Activ e Independent with all IADL's Acti ve Mental Status Mental Condition Comment Date Status None Active Can Understand Information Activ e Referrals Description No Information Available
--- OUTSIDE RECORDS SUMMARY | 2020-07-07 15:03 | CCD ---
Author Author [facility] Organization [facility] Address Unknown Phone Unavailable Care Team Providers Care Gas Producer Name Role Phone Pleskach, Mckenzie GREENS LABORER Unavailable Unavailable Pleskach, Mckenzie GREENS LABORER Unavailable Unavailable Pleskach, Mckenzie GREENS LABORER Unavailable Unavailable Pleskach, Mckenzie GREENS LABORER Unavailable Unavailable Pleskach, Mckenzie GREENS LABORER Unavailable Unavailable Pleskach, Mckenzie GREENS LABORER Unavailable Unavailable Pleskach, Mckenzie GREENS LABORER Unavailable Unavailable Pleskach, Mckenzie GREENS LABORER Unavailable Unavailable Pleskach, Mckenzie GREENS LABORER Unavailable Unavailable Pleskach, Mckenzie GREENS LABORER Unavailable Unavailable Pleskach, Mckenzie GREENS LABORER Unavailable Unavailable Pleskach, Mckenzie GREENS LABORER Unavailable Unavailable Pleskach, Mckenzie GREENS LABORER Unavailable Unavailable Pleskach, Mckenzie GREENS LABORER Unavailable Unavailable Pleskach, Mckenzie GREENS LABORER Unavailable Unavailable Pleskach, Mckenzie GREENS LABORER Unavailable Unavailable Pleskach, Mckenzie GREENS LABORER Unavailable Unavailable Pleskach, Mckenzie GREENS LABORER Unavailable Unavailable Pleskach, Mckenzie GREENS LABORER Unavailable Unavailable Pleskach, Mckenzie GREENS LABORER Unavailable Unavailable Pleskach, Mckenzie GREENS LABORER Unavailable Unavailable Pleskach, Mckenzie GREENS LABORER Unavailable Unavailable Pleskach, Mckenzie GREENS LABORER Unavailable Unavailable Pleskach, Mckenzie GREENS LABORER Unavailable Unavailable Pleskach, Mckenzie GREENS LABORER Unavailable Unavailable Pleskach, Mckenzie GREENS LABORER Unavailable Unavailable Pleskach, Mckenzie GREENS LABORER Unavailable Unavailable Pleskach, Cmkenzie GREENS LABORER Unavailable Unavailable Pleskach, Mckenzie GREENS LABORER Unavailable Unavailable ELEANOR (AYLIN), Deepa GUNDERSON MD [...] Deepa GUNDERSON MD Unavailable Unavailab le ELEANOR (YALIN), Deepa GUNDERSON MD Unavailable Unavailab le ELEANOR [...] MD Unavailable Unavailab le ELEANOR (AYLIN), Deepa GUNDERSNO MD Unavailable Unavailab le ELEANOR (AYLIN), Deepa [...] M JALYN MD Unavailable Unavailab le ELEANOR (YALIN), Deepa CALIXTOA MD Unavailable Unavailab le Mccloud, [...] is protected by Article 27-F of the [facility] Public Health law. If you continue you may have access to information: Regarding HIV / AIDS; Provided by facilities licensed or operated by the [facility] Office of Mental Health; or Provided by the [facility] Office for People With Developmental Disabilities. If such information is present, then the following [facility] mandated warning applies: This information has been [...] Huang greer 06/22/2020 02:15:00 PM EST [facility] ([facility] Outpatient Attender: Mckenzie Warren [facility] Main Office 06/22/2020 1 2:30:00 PM EST [facility] ([facility] Outpatient Attender: Mckenzie Warren [facility] Main Office 06/14/2020 0 9:45:00 AM EST [facility] ([facility] Outpatient Attender: Mckenzie Warren [facility] Main Office 05/27/2020 0 8:30:00 AM EST [facility] ([facility] Outpatient Attender: Mckenzie Warren [facility] Main Office 05/19/2020 1 0:45:00 AM EST [facility] ([facility] Outpatient Attender: Mckenzie Warren [facility] Main Office 05/13/2020 1 2:30:00 PM [...] type / Coverage type Policy ID Covered green party ID Covered green party's relationship to mendenhall Policy Mendenhall Plan Information [facility] [id number] 0 [id number] [facility] [id number] SP [id number] [facility] [id number] S [id number] O UNAVAILABLE UNAVAILA BLE [facility] [id number] SP [id number] [facility] [id number] SP [id number] [facility] EP[employer] O [id number] O [id number] SELF PAY ONLY [id number] Surgeries/Procedures Procedure Description Date Indications Data Source(s) Brief Emotional/Behav Assessment W/ Scoring Doc Per Standard [facility] 05/13/2020 12:00:00 AM EST [facility] ([facility] Results ID Date Data Source [id number] 06/23/2020 11:00:00 AM EST [facility] Name Value Range Interpretation Code Description Data Anat rce(s) Supporting Document(s) First Visit [facility] CWWQLq8fLgCOGnEfLMOeJlrXTUnnHWleRDIkO3I6RDgeYe6JJHnvtuImVRJqNl2+MTTqCQ2xpl1cHTDe gMy 6hGMRrBudzV0TpDRLiy72SLLKhYIwKMqJeBwOaRARyLBMaDMPzBBF3CdXbSenpIG6uMRJ8UQJdRMbcDR EkTKUbYTByKvH4Mf6fBSgsNVwrOq1GJW5of6ThORIdVAJvJwtIMQzoJQlxYTHzTYOnMBZyJ820vcRrGV 5MnMPhECy5RUHnWvI8UCViAbW4PITiMlLpAhSxWCKm D6Hqo902qlLyfaT6BE1VZ0OwAFN8DYu4R3yfGwLcKFXoWPLfPY9oQrL7RQRaPw2JiZioONObYHDlJy5V jFu0HXR8NKIrXa8+Pj4+Dy9gacXcXluGHONaXI1vzs06HZ1ScYPuWM2NWGvbS72tEEsmVp59XZfcBFGw SpOgUJu6Vg4fPhVab8TiS5QtFHg6J1mNCsswC0SyWP uqHE0oTUE4NIWoOr0+Yb1lLJBgZR81JWQlCUARM6AjvtHideHqKBm3QEVxSr8+Od4jeaCmKohQBSCxUY 1yvk46NC4MWX4ikBpyRomeWGQ6J48jcYPeB2ixZuXiX3NpmJwhGIQoTU2uW8IfUMmmVOLrBM1caxZjsL 4BfZo0JBQkMq7XgPT5RXIxZ98aEHHxAZEPZRIzk7Ft TQ7Dk5nnezAfPSEtYK9MHDHcT6ZYJ9NaC5aasRqaGCUrDF8TESwfrSWyDUe6AK0NmYQlAOLqJ07vkB0i SA80EPw+KwJ7ohKucD4HiJsnm2UOEJ927e9R3+NcUi9CpXgWIHENFCrgTBNB7X8AcRvRIKNGy3Agc0yc 7gwafAYd/OS/9425sB7pkvb2ez7jwrl57z1O97mw87 [file] wX27F85XtUu1bb/bp79XTLL9hkDOD1i+CLAIMS AUDITOR/tuTIX7Bwmkb21b+nBYpW1w9EHVTrmTC9Jls05zrEw0IXd [file] 4c+j43VqDHf8x3O7S9awNHyGt6OB9Nz//p/rSD49r6Dasg/YBqD2e0/Félix+TKhPnRMULQL8wFPnqg3xB [file] HHwe/YKCpXSvAF42MPnwq9oL6BjxtuyYc2zapwRryJF9xTopNiPgvw1yrzKz/id+fluid power mechanic/LQKHDOBEHPzr [file] driveway attendant+Ac3c/xcG/e/KzZZ2x0POO1RC1AgfjkH0aa/GYjUC32TT+FBOoMxrwbEODxaXPraunrqA+yT0SnzA [file] Brake Repairer [file] AtNYJ48fSPZRmdDps/JG+fO8x0QvqLI0ReET5h jKRWWsicAgwl2c+XQu+cMYUjH3IgVP0GbcmlXXwF2p9mJjf++WFmFjHtlVpk+SIO0nknJ4Fa0GUVnXga MMcg2pqFGJ6bj7DwAz/8WB80P7bsP7qcuisad4Ox0O9HoZNdD9evrIRnlbHId2U9V3xytYpHL+1pmpul Qd5grQTRO9xbg/XsSvkPTtvFLGRhIttBPfVPfoPRNZ 6kqflag58/dq4mw3434uWIR8ZbAYIjjkanZ5T36n+XeagJk60Uxq/nTxOO2i/7EkHgrhdoR86NuqA/ls OSzs3+5Oj7H2L64bZQYECUiNfIJ4fV3fMlAgTokIzY49xYvnfC6NgaCma2MCzvQbDm3b0nrqJrm8rLIU coj2vygfa6Ja9Bbwynn9uF+6TdSz9P6hQcrYmXNKlV 22WNTpuEaL53SqX0YMZsz7a6W0ws0eCs8uVzqXTlqK90oaom9BmSq+/Lai2gJHs5TbMRDZHu3lqu+gM6 ci7jREuPl7dwT+Kq1gG4/Zu6QGBPsxrqW/vFXdVMyxvf3anz9ytNWpZ6Z3fn738lAQ9Lw3dLwK+dS68D oNicAkZEMeTzVkRJuYU3qE3FmQxRzzydEi7OXE5a+7 gKU8v22w+fpbOde6F+Bennett/01GRPZWFM5I/MoAcHqv2i3aWNVAyYDQuvXF6OCzesictjXSWpgem4MBbq6 [file] r7t3JaGlHF19RjEQDOU6oO7Wibs6ob4gzzriFw/Mary Ann [file] UDH+LOGGING CONTRACTOR+tmqPqg+FCrCSHgzKxuJp0IICrMHfWp/XtNuh6T7tTHH9/l+ucpioQm9aUyFZWPLJ13nrGb4Ie [file] IL9urF0dnXK1Wu5gvh5T3hM0E/andrés/F34Jza/014P9QIHcm1iEmgDzKE2FEcCGBzpBf8oGDiyBRJo3Uy JgAi6+lPZSjvc+Ct6PcB8mgDJgbA69zDGuEs8sgLlH CvNYuF5Xh7UhiPc5CUvISANJkySndnh9Rgh1bSSDTyO/ocvw2nZs/qFrM6r0lL/nkjPII59DyfdQynBK FNPhrd+/8pCGDq8xB+c8KuxgPAOi/rVwikLVLTn5ZqsMhZDB/dJ6OdL5yIbjAGZxNSO/Arie+EpLqRwhR 0wn8+2LUH907om/GFGPU5OXv2sLejOO2hgcShv7Ag/ /nHENbOSczDnTQSVx2VOV+Dix5hBMXpTvbFldv3m/rPcTuLXHKFkolCnWxQcwpa7QW2/o+h3AZ/sWUdi TZEp7WriYpKpGrLyF+0VuixY/BixEBXgUmGo5i5onC+nZk/XV7AOOEAiZtQkmmBoXaeuWEqZshmVlQSx 3dqseUBvsgvLUIwrkjjaDfpWCuZSo/bUzlgr6+ju24 [file] U08AipkJlCfuafKu9gFO9qK9+q2ZlDtY/41eHJxa9eSkNQPHBElkt3w3N365E2WofDH0PP+Carlos Alberto+Ib8g6 [file] 2THQMPn4UYwH5vGiuapmeL9jJXhD/1w+AIzXbX [file] wAm/centrifuge operator/U8sHOSeZsEg2+Qavp9Cr+pKElNetDG5geP [file] KJg29nOI+municipal services manager/j6QkWy3mwFFSrG2eevUYDbexm153X7TH+KuddMF3bdtvf7/PcbxazuLAStKTmXQwzGW [file] 7RKBeoPNWL9SvZ3E7TVA3zb1RcFRRnMHfrhfMaAssRWDlruHDjjVqmJQPVKgrxUHf5ZQ5ZYIAZD3K= ID Date Data Source [id number] 06/22/2020 12:00:00 AM EST [facility] Name Value Range Interpretation Code Description Data Anat rce(s) Supporting Document(s) SARS coronavirus 2 Ag Negative [facility] This lab was ordered by [facility] and reported by [facility] ID Date Data Source [id number] 06/21/2020 07:41:00 PM EST [facility] ([facility] Name Value Range Interpretation Code Description Data Anat rce(s) Supporting Document(s) Color, Urine RFX Laboratory test result [facility] ([facility] Appearance, Urine RFX Laboratory test result [facility] ([facility] Specific [place] [facility] RFX 1.016 1.002-1.035 [facility] ([facility] [...] [facility] ID Date Data Source [id number] 06/21/2020 07:41:00 PM EST [facility] ([facility] [...] % 0.0-3.0 [facility] [place] % 4.8 % 0.0-5.0 [facility] ([facility] [...] 10 1.5-5.0 [facility] [place] # 0.3 10 0.0-0.8 [facility] Baso # 0.1 10 0.0-0.2 [facility] Eos # 0.3 10 0.0-0.5 [facility] ID Date Data Source [id number] 06/21/2020 07:41:00 PM EST [facility] ([facility] Name Value Range Interpretation Code Description Data Anat rce(s) Supporting Document(s) Creatinine For GFR 0.66 mg/dL 0.55-1.30 [facility] ([facility] Glucose, Fasting 85 mg/dL 70-100 [facility] ([facility] Blood Urea Nitrogen 9 mg/dL 7-18 [facility] Sodium Level 142 [...] [facility] ID Date Data Source [id number] 06/21/2020 07:41:00 PM EST [facility] ([facility] Name Value Range Interpretation Code Description Data Anat rce(s) Supporting Document(s) Choriogonadotropin.beta subunit ( test) [Pres ence] in Serum or Plasma Laboratory test result [facility] ([facility] <content>note:<nlbl:demographic_changed> </content>
<content></content> ID Date Data Source [id number] 06/21/2020 07:41:00 PM EST [facility] ([facility] [...] of the test. ID Date Data Source [id number] 06/21/2020 07:41:00 PM EST [facility] ([facility] Name Value Range Interpretation Code Description Data Anat rce(s) Supporting Document(s) Wet Prep Laboratory test result [facility] ([facility] MANY EPITHELIAL CELLS PRESENT MODERATE LONG RODS PRESENT MODERATE SHORT RODS PRESENT MODERATE WBC FEW RBC ID Date Data Source [id number] 06/21/2020 07:37:00 PM EST [facility] ([facility] [...] Name Value Range Interpretation Code Description [facility](s) SARS-[facility]2 [facility] This lab was ordered by [facility] and reported by [facility]. ID Date Data Source [id number] 05/25/2020 09:22:00 PM EST [facility] ([facility] Name Value Range Interpretation Code Description Data Anat rce(s) Supporting Document(s) Choriogonadotropin.beta subunit [Moles/volume] in Seru m or Plasma Laboratory test result [facility] ([facility] <content>QUANTITATIVE RESULT QU ALITATIVE INTERPRETATION</content>
<content> </content>
<content><5.0 IU/L NEGATIVE</content>
<content>5.0 - 25.0 IU/L INDETERMINATE</content>
<content>>25.0 IU/L POSITIVE</content>
<content></content> ID Date Data Source [id number] 05/18/2020 11:16:00 AM EST [facility] ([facility] [...] [facility] ID Date Data Source [id number] 05/18/2020 11:16:00 AM EST [facility] ([facility] [...] % 24.0-44.0 [facility] [place] % 4.2 % 0.0-5.0 [facility] ([facility] [...] 10 0.0-0.5 [facility] [place] # 0.2 10 0.0-0.8 [facility] Baso # 0.1 10 0.0-0.2 [facility] ID Date Data Source [id number] 05/18/2020 11:16:00 AM EST [facility] ([facility] Name Value Range Interpretation Code Description Data Anat rce(s) Supporting Document(s) Thyrotropin [Units/volume] in Serum or Plasma 0.407 uIU/ML 0.463-3.98 [facility] ([facility] <content>note:<nlbl:demographic_changed> </content>
<content></content> Thyroxine (T4) free [Mass/volume] in Serum or Plasma 1.15 ng/dL 0.78- 1.33 [facility] ([facility] <content>note:<nlbl:demographic_changed> </content>
<content></content> ID Date Data Source [id number] 05/18/2020 11:16:00 AM EST [facility] ([facility] [...] specificity for gluten sensitive enteropathy. Performed at: [facility] Lab[address] [id number] Specialty Cook: Wen Webb MD, Phone: [phone] Procedure Social History Code Duration Value Status Description Data Source(s ) Smoking 06/22/2020 12:00:00 AM EST Patient has never smoked co mpleted Patient has never smoked [facility] ([facility]) Smoking 06/22/2020 12:00:00 AM EST Patient has never smoked co mpleted Patient has never smoked [facility] ([facility] Vital Signs ID Date Data Source [id number] Name Value Range Interpretation Code Description Data Source(s) Systolic blood pressure 106 mm[Hg] 106 mm[Hg] M [facility] ([facility]) Diastolic blood pressure 71 mm[Hg] 71 mm[Hg] [facility] Heart rate 93 /min 93 /min [facility] ([facility]) Respiratory rate 16 /min 16 /min [facility] ( [facility]) Oxygen saturation in Arterial blood by Pulse oximetry 98 % 98 % [facility] ([facility]) Body temperature 98.2 [degF] 98.2 [degF] [facility] ([facility]) Body weight 142.00 [lb_av] 142.00 [lb_av] MEDEN T ([facility]) Body height 64 [in_i] 64 [in_i] [facility] ([facility]) 5'4" Body mass index (BMI) [Ratio] 24.4 kg/m2 24.4 k g/m2 [facility] ([facility]) [place] body weight 120 [lb_av] 120 [lb_av] MEDEN [...] 99 % [facility] ([facility] [place] body weight 120 [lb_av] 120 [lb_av] MEDEN [...] 98 % [facility] ([facility] [place] body weight 120 [lb_av] 120 [lb_av] [facility] T ([facility] Body mass index (BMI) [Ratio] 23.6 kg/m2 23.6 k g/m2 [facility] ([facility] Body weight 139.50 [lb_av] 139.50 [lb_av] [facility] T ([facility] Oxygen saturation in Arterial blood by Pulse oximetry 97 % 97 % [facility] [place] body weight 120 [lb_av] 120 [lb_av] MEDEN [...] 99 % [facility] ([facility] [place] body weight 120 [lb_av] 120 [lb_av] [facility] T ([facility] Body mass index (BMI) [Ratio] 23.7 kg/m2 23.7 k g/m2 [facility] ([facility]
[2020-07-07 16:12] LABS: HEMATOCRIT 41.2 % (36.0-47.0); HEMOGLOBIN 13.3 g/dl (12.0-15.5); MEAN CORPUSCULAR HGB CONC 32.3 g/dl (32.0-36.5); PLATELET COUNT, AUTOMATED 320 10^3/uL (150-450); RED BLOOD COUNT 4.58 10^6/uL (4.00-5.40); WHITE BLOOD COUNT 4.9 10^3/uL (4.0-10.0)
[2020-07-07 17:08] VITALS: BP 130/71
--- NOTE | 2020-07-08 07:40 | ECGEPIP ---
[facility] - ED Test Date: 2020-07-07 Pat Name: CARMELO SIM Department: Room: - Gender: Female [place] Technician: MICHAEL : 2000 Requested By: ELEANOR GATICA PA-C. Order Number: [id number] Reading MD: Alejandra Romeo Measurements Intervals [place] Rate: 73 P: 45 SD: 132 QRS: 58 QRSD: 89 T: 41 QT: 360 QTc: 397 Interpretive Statements SINUS RHYTHM POSSIBLE RIGHT VENTRICULAR CONDUCTION DELAY NSTTW abnormalities Electronically Signed on 07-08-2020 7:39:59 EST by Alejandra Romeo
== END 2020-07-07 17:21 | disposition home or self-care (01) ==
LOC: M ED 14:53
DX: R42 Dizziness and giddiness (principal)

== ENCOUNTER 2020-07-25 11:46 | Emergency (ER) | payer OTHER ==
[~2020-07-25] VITALS: Ht 162.6 cm; Wt 64.4 kg
--- OUTSIDE RECORDS SUMMARY | 2020-07-25 11:52 | CCD ---
Author Author [facility] Organization [facility] Address Unknown Phone Unavailable Care Team Providers Care News Video Editor Name Role Phone Pleskach, Mckenzie SERVICE LINE BUS CLEANER Unavailable Unavailable Pleskach, Mckenzie SERVICE LINE BUS CLEANER Unavailable Unavailable Pleskach, Mckenzie SERVICE LINE BUS CLEANER Unavailable Unavailable Pleskach, Mckenzie SERVICE LINE BUS CLEANER Unavailable Unavailable Pleskach, Mckenzie SERVICE LINE BUS CLEANER Unavailable Unavailable Pleskach, Mckenzie SERVICE LINE BUS CLEANER Unavailable Unavailable Pleskach, Mckenzie SERVICE LINE BUS CLEANER Unavailable Unavailable Pleskach, Mckenzie SERVICE LINE BUS CLEANER Unavailable Unavailable Pleskach, Mckenzie SERVICE LINE BUS CLEANER Unavailable Unavailable Pleskach, Mckenzie SERVICE LINE BUS CLEANER Unavailable Unavailable Pleskach, Mckenzie SERVICE LINE BUS CLEANER Unavailable Unavailable Pleskach, Mckenzie SERVICE LINE BUS CLEANER Unavailable Unavailable Pleskach, Mckenzie SERVICE LINE BUS CLEANER Unavailable Unavailable Pleskach, Mckenzie SERVICE LINE BUS CLEANER Unavailable Unavailable Pleskach, Mckenzie SERVICE LINE BUS CLEANER Unavailable Unavailable Pleskach, Mckenzie SERVICE LINE BUS CLEANER Unavailable Unavailable Pleskach, Mckenzie SERVICE LINE BUS CLEANER Unavailable Unavailable Pleskach, Mckenzie SERVICE LINE BUS CLEANER Unavailable Unavailable Pleskach, Mckenzie SERVICE LINE BUS CLEANER Unavailable Unavailable Pleskach, Mckenzie SERVICE LINE BUS CLEANER Unavailable Unavailable Pleskach, Mckenzie SERVICE LINE BUS CLEANER Unavailable Unavailable Pleskach, Mckenzie SERVICE LINE BUS CLEANER Unavailable Unavailable Pleskach, Mckenzie SERVICE LINE BUS CLEANER Unavailable Unavailable Pleskach, Mckenzie SERVICE LINE BUS CLEANER Unavailable Unavailable Pleskach, Mckenzie SERVICE LINE BUS CLEANER Unavailable Unavailable Pleskach, Mckenzie SERVICE LINE BUS CLEANER Unavailable Unavailable Pleskach, Mckenzie SERVICE LINE BUS CLEANER Unavailable Unavailable Pleskach, Mckenzie SERVICE LINE BUS CLEANER Unavailable Unavailable Pleskach, Mckenzie SERVICE LINE BUS CLEANER Unavailable Unavailable Pleskach, Mckenzie SERVICE LINE BUS CLEANER Unavailable Unavailable ELEANOR (AYLIN), Deepa GUNDERSON MD Unavailable Unavailab marybel WEBSTER (AYLIN), Deepa GUNDERSON MD Unavailable Unavailab marybel WEBSTER (AYLIN), Deepa GUNDERSON MD Unavailable Unavailab le [...] MD Unavailable Unavailab le ELEANOR (AYLIN), Deepa GUNDESRON MD Unavailable Unavailab le ELEANOR (AYLIN), Deepa GUNDERSON MD Unavailable Unavailab le ELEANOR (AYLIN), Deepa GUNDERSON MD Unavailable Unavailab le ELEANOR (AYLIN), Deepa GUNDERSON MD Unavailable Unavailab le ELEANOR (AYLIN), Deepa GUNDERSON MD Unavailable Unavailab le ELEANOR (AYLIN), Deepa GUNDERSON MD Unavailable Unavailab le ELEANOR (AYLIN), Deepa GUNDERSON MD Unavailable Unavailab le ELEANOR (AYLIN), Deepa GUNDERSON MD Unavailable Unavailab le ELEANOR (AYLIN), eDepa GUNDERSON MD Unavailable Unavailab le ELEANOR (AYLIN), [...] Deepa GUNDERSON MD Unavailable Unavailab le ELEANOR (AYILN), Deepa GUNDERSON MD Unavailable Unavailab le ELEANOR (AYLIN), Deepa GUNDERSON MD Unavailable Unavailab le ELEANOR (AYLIN), Deepa GUNDERSON MD Unavailable Unavailab le ELEANOR (AYLIN), Deepa GUNDERSON MD Unavailable Unavailab le ELEANOR (AYLIN), Deepa GUNDERSON MD Unavailable Unavailab le ELEANOR (AYLIN), Deepa GUNDERSON MD Unavailable Unavailab le ELEANOR (AYLIN), M JALYN HURT Unavailable Unavailab le ELEANOR (AYLIN), M JALYN HURT Unavailable Unavailab le ELEANOR (AYLIN), M JALYN [...] Unavailable Unavailab le ELEANOR (AYLIN), M JALYN HURT Unavailable Unavailab le ELEANOR (AYLIN), M JALYN MD Unavailable Unavailab le ELEANOR (AYLIN), M JALYN MD Unavailable Unavailab le ELEANOR (AYLIN), M JALYN MD Unavailable Unavailab le ELEANOR (AYLIN), M JALYN MD Unavailable Unavailab le ELEANOR (AYLIN), M JALYN MD Unavailable Unavailab le ELEANOR (AYLIN), M JALYN MD Unavailable Unavailab le Mccloud, Socorro Caitlyn [...] by Article 27-F of the [facility] Public Health law. If you continue you may have access to information: Regarding HIV / AIDS; Provided by facilities licensed or operated by the [facility] Office of Mental Health; or Provided by the [facility] Office for People With Developmental Disabilities. If such information is present, then the following [facility] mandated warning applies: This information [...] Source(s ) Attender: JALYN WEBSTER MD ([place]) 08:21:01 PM EST [facility] Attender: JALYN WEBSTER MD ([place]) 08:21:01 PM EST [facility] Attender: JALYN WEBSTER MD ([place]) 08:21:01 PM EST [facility] Attender: JALYN WEBSTER MD ([place]) 1 08:21:01 PM EST [facility] Attender: JALYN WEBSTER MD ([place]) 1 08:21:01 PM EST [facility] Outpatient Attender: Caitlyn butterfield 06/22/2020 02:15:00 PM EST [facility] ([facility] Outpatient Attender: Mckenzie Warren [facility] Main Office 06/22/2020 1 2:30:00 PM EST [facility] ([facility] Outpatient Attender: Mckenzie Warren [facility] Main Office 06/14/2020 0 9:45:00 AM EST [facility] ([facility] Outpatient Attender: Mckenzie Harrisonblair [facility] Main Office 05/27/2020 0 8:30:00 AM EST [facility] ([facility] Outpatient Attender: Mckenzie Kelvin [facility] Main Office 05/19/2020 1 0:45:00 AM EST [facility] ([facility] Outpatient Attender: Mckenzie Knightbella [facility] Main Office 05/13/2020 1 2:30:00 PM EST [...] type / Coverage type Policy ID Covered alliance party ID Covered alliance party's relationship to mendenhall Policy Mendenhall Plan Information [facility] [id number] SP [id number] [facility] [id number] 0 [id number] [facility] O [id number] S [id number] O UNAVAILABLE UNAVAILA BLE [facility] [id number] SP [id number] [facility] EP[facility] [id number] SP [id number] N[facility] EPALS O [id number] O [id number] SELF PAY ONLY [id number] SP [id number] Surgeries/Procedures Procedure Description Date Indications Data Source(s) Brief Emotional/Behav Assessment W/ Scoring Doc Per Standard Inst 05/13/2020 12:00:00 AM EST [facility] ([facility] Results ID Date Data Source [id number] 07/08/2020 12:00:00 AM EST [facility] Name Value Range Interpretation Code Description Data Anat rce(s) Supporting Document(s) SARS-CoV2 Rapid Antigen Negative [facility] This lab was ordered by [facility] and reported by [facility]. ID Date Data Source [id number] 06/23/2020 11:00:00 AM EST [facility] Name Value Range Interpretation Code Description Data Anat rce(s) Supporting Document(s) [facility] FRNOQo5eUuBOFfNgOBHnMcaNKKuhNMxsKAPrD5E6GQtiOk8EIEfcwfYaHMFmVj7+WOViED4fsg4dPVIq gMy 3eVFYuVxipW6SaQCUqs97SOQKhADgOUcMiKhKhOMMcPHLyZQHmGNV4XnHwRxgpBS6iPNA4MHZyYKstOF XwUQNfLGOqHvT7Nr8hTBglBYreHv2IWC9mn0FlQNVzRAXeCkaOGOjuVTmvFCOwODZkHURqA530tqEkAO 4FsYAtCTq8EXUjIsG7FQJhVuE7YYOoQlLeHsSdDCTq X2Qhk644qiFimbI9UD2SY0PvRQA4TDp7D2hvWhKnEIKcCBYtPD6fUiC9VBSvCh1TwMncXOInTZQbBz5M yGz5HEA2NITaJw3+Pj4+Dh4hfbHbNhoPQFXjQP2kcm90PK0HuKQkLZ2HLKfkL94fYRmqCo37BBxjVPRc DfQfSPm0Is3rZpPho9UyA9QjALs9V1yFJnqjW3UtUY kcUP9sICR1OLNzUs2+Qc2cELMpCX91DFRwBSZOC3AuftRpnaYtNNf7OHBbZj8+Ew8zagPfJmmKLZJcZL 8efq65WD5DPH3upDbtAycfJTH2W24gnIRjJ7lrRjYzK4AgyAwkPNPnSV2lL9DtVHsrGBCsIL6yujMmwC 3AuYq7XTQfOd8EoOK7WXWiF32fIMYjYMTIYPDvd9Td VH6Kd6sxdiOxYCWbYQ9TVRBiK3AOB1XwU1issCkiYDGwSS9JBUmkxCOvVFo1TY5GuBCzDIViA71obD7b TY48ZLx+DlJ1vvLwjM7QsRdbw6XNTQ377p8K2+TbKr1ToVuRGIXBVJrfHUJS5W1MpPmLPDVNl7Vvv1ec 7gwafAYd/OS/7418zC4pppu2vj2jdds77a2P67wg53 [file] 4c+n03PuSKg3l4D0H8fxZHnYk8AX3Zh//p/jDT32c6Fvyp/HMoH9y9/Félix+UXlKpYMFAYG8pHPdsf0zY [file] HHwe/LNKdBBcBR13OTcjf4lF4MtlstgYr3eiktFqhRC8jFnxCwUnqc9djfXi/id+platform loader/LQKHDOBEHPzr [file] grooming salon manager+Ac3c/xcG/e/TgJJ1w1LEA4MZ5QzclcE8sr/ITwQC55NM+FBOoMxrwbEODxaXPraunrqA+zB8HekX [file] MAZM581QagZ4vKKYgNWKvqmSzjV0b0JJtCsBOED3T/eD8qeIDZjsePa46is5nOvfw5Y6UJaf/gEg+LYLE jwkI8trlLsKMSKNP17G176jSPo4syMNR/2Yf5C0ve9 y7qh5zNtDCn+yAgBuxGvmzt8ubEnuDg7MlWUx68Jte8vPOyNEQC5ojbUljA06/C+i6AJPyqLwOnJJZJ5 0tsgk9Hh8NXr1jKWs/CdCCiEb8K3cCSVruwenYCOlj2GW4MlctoOpeH5PvQRq0G8xQ16Zpes5//gHvYG ISC/B35PbZJXTYWs/LtZBK3U6+kFlgBMevg/ncA8H7 kCN/7H0Br0GBlhV9pcS+TzuenqZXcPAwo9WMZPk9Tw8foOLVi2aYd0CzRXu4AeU//CWjhRUPmxDq51u+ bROjDqAYBMQ8/vRCn7kgF/HEKQjTvMDobOtu9KATM5j9xN+L8MJuiKJsiCtM3/jj0HsZVCQc2qzGxifX VDi65vhpb0BC1iZz8OestdNNQ1uCiMCNzfj00z5yzQ pRIveiDM4H5rHAPCZU99WRi5ssJi0vPi4O4l7iivIJMIopaF/RhzSmwiCSEs50fRKAlP8NzikQ8yXtIz cxbF5oZrPXwSkL9cmOrUxoxCIgRUxqqVovV5zCO70c5UxkF0fWw9Ak2Vlai/tdJSpizzg3OKoFwiM8Cw 5chh2ZPlX/aywjdtCwXM6aP36iYSKA3AuMRFUzDcJx [facility]+G84HM6GcM273ckoZEfxrjwX17YhdJBOGtBC514KvMGkLsvXwyCRpYin50ENhcKNdzwZ276sp8w22 [file] Therapist Asst/LLpTihwzh0Zj/a46UnAHfR8DaPuzV3ZXOjWQg2AIA3x/ve8E4ih72ZF8zHOuVAd8Np/bjgTr7K8K [file] RcBHZ85pIQDGfdPhp/JG+wE9u6YkjIO5QeVI6w eZJTIhzsTbvt6t+XQu+kQAPnV4QgXP4GhqseLBkX5i3wSqj++WFmFjHtlVpk+EUB2jjcD2Jf6XJTqIxd LCks2bmCSW7wg0KjLd/9FZ76Q1wdT4haaadct7Dt8O8AyMCgV3cscMMlesGFi0Q8D8tggEvFD+1pmpul Hy1cnAKQA2bku/XsSvkPTtvFLGRhIttBPfVPfoPRNZ 7rodjie49/wj5as2957uCIX4RwQMWoqllyG8Q55r+ZcejNm70Eje/qYnYX1x/7VfHrbnfsY19MwqG/ls OSzs3+5Ke6H2L69dKFAALUxHwXT9vS2uMxPqGvqPzT46rWvnlX9JvdFdp4PYrfZlRw2f9pyaWph9vAGI mhd6yfzoh7Eo2Lqvvxz5fY+4YeWi5V5jSmfKuKSOqS 07HWHirSxB67GwR1JQRgh2v3L6ja8kJz0gVjqYEvrT01hjbq3MdBi+/Lsa8bNZm3InTAJSJl6vsk+gM6 vj5oIHrEy4hsB+Kq1gG4/Ud1RIUVadesO/aPDbSBmamx2bod6daRKiF6N8wt045kDO6Nn3dCmQ+dS68D sUikNpUEKyRhWqNPpVD8bS5KtNmYfqagSh9YTM2e+7 hQI6i72m+tocQsw9C+Bennett/17AMEFLAU1O/AuVoHhu2t4dRTFUxQXVvjDG9ONhftkcjvQNRriti1GIam4 [file] t5m5OhLyYT53SuIYBGX7bY4Gcws5rl4oeuvqCl/Mary Ann [file] UDH+SUPPLY TEACHER+tmqPqg+XEbJUWkmAkqNt1GRKnDCgYv/CwPqv4B6lKXB7/l+cdqfnEl9oRyNUQZAS36uiCm1Ih [file] FY2glH8uvMO5Tm7yqk5N1xT8I/andrés/F34Jza/921M4NEFco4hOhxDzRA5ZZmKMTpqLf6uHLvoALCn1Co JgAi6+lPZSjvc+Qp0TkC9ueKUfrC67sXSuWr5wjVzF YhSUuL7Tn0BgoQt0GSnKQFDZypOmhno3Bfx3lZZZDsA/byzw8pPl/bUlG8x8fP/dllDHS62FkdoGpvVI FNPhrd+/2xMMSa0dY+q1UcmfTRDp/jFhgdEXDBe6ChqUzYWC/sG1GlN4wXkdXAEoUHJ/Arie+EpLqRwhR 0wn8+5UCO186zn/UCBNV8YNt6vVwiRB1hcvLci9Wr/ /uIFXgKYrcVeALUHa3EYA+Bsx9hQDMzMzzRodm5o/tElKuQPCYKlzzNlYcEtvba4PG6/o+h3AZ/sWUdi MFTs2BrzFsOuElLrK+0VuixY/UodGBAlAzKu8h3qfQ+nZk/IY0VTNQPdHlJuljNbLcqsOMtXkzhNhFIe 3dqseUBvsgvLUIwrkjjaDfpWCuZSo/bUzlgr6+ju24 [file] J76RdizKwDxgejHu4sZF8tS6+f1JeItP/31eGKwc4qAaRKEEUWjjo4b8Y522R9FvhPI5EZ+Carlos Alberto+Ib8g6 [file] 2FEZHAg3ITbM7aLfyqqsjH9wSMqR/1w+AIzXbX [file] wAm/yield clerk/M5pKAHwTaFt1+Enxs6Vm+uTLxJsrJO3seH [file] WRs21uXU+natural sciences professor/s3WwHi4noFCPuR0weuBKVyzfc297K0UC+NyaxDM3egikf8/PcbxazuLAStKTmXQwzGW [file] 5CIBphZTSZ6FlF1H9CLJ6bh7EwNILkACiynwUzSufXQMmmpQJfzCpdHEXLJfwxISl3BU9REWOBL9G= ID Date Data Source [id number] 06/22/2020 12:00:00 AM EST [facility] Name Value Range Interpretation Code Description Data [facility] rce(s) Supporting Document(s) SARS coronavirus 2 Ag Negative [facility] This lab was ordered by [facility] and reported by [facility]. ID Date Data Source [id number] 06/21/2020 07:41:00 PM EST [facility] ([facility] Name Value Range Interpretation Code Description Data [facility] rce(s) Supporting Document(s) Color, Urine RFX Laboratory test result [facility] ([facility] Appearance, Urine RFX Laboratory test result [facility] ([facility] Specific [place] [facility] Auto RFX 1.016 1.002-1.035 [facility] ([facility] [...] [facility] ID Date Data Source [id number] 06/21/2020 07:41:00 PM EST [facility] ([facility] [...] % 0.0-3.0 [facility] [place] % 4.8 % 0.0-5.0 [facility] ([facility] [...] 10 1.5-5.0 [facility] [place] # 0.3 10 0.0-0.8 [facility] Baso # 0.1 10 0.0-0.2 [facility] Eos # 0.3 10 0.0-0.5 [facility] ID Date Data Source [id number] 06/21/2020 07:41:00 PM EST [facility] ([facility] Name Value Range Interpretation Code Description Data Anat rce(s) Supporting Document(s) Creatinine For GFR 0.66 mg/dL 0.55-1.30 [facility] ([facility] Glucose, Fasting 85 mg/dL 70-100 [facility] ([facility] Blood Urea Nitrogen 9 mg/dL 7-18 [facility] ([facility] Sodium Level 142 meq/L 136-145 [...] [facility] ID Date Data Source [id number] 06/21/2020 07:41:00 PM EST [facility] ([facility] Name Value Range Interpretation Code Description Data Anat rce(s) Supporting Document(s) Choriogonadotropin.beta subunit ( test) [Pres ence] in Serum or Plasma Laboratory test result [facility] ([facility] <content>note:<nlbl:demographic_changed> </content>
<content></content> ID Date Data Source [id number] 06/21/2020 07:41:00 PM EST [facility] ([facility] [...] of the test. ID Date Data Source [id number] 06/21/2020 07:41:00 PM EST [facility] ([facility] Name Value Range Interpretation Code Description Data Anat rce(s) Supporting Document(s) Wet Prep Laboratory test result [facility] ([facility] MANY EPITHELIAL CELLS PRESENT MODERATE LONG RODS PRESENT MODERATE SHORT RODS PRESENT MODERATE WBC FEW RBC ID Date Data Source [id number] 06/21/2020 07:37:00 PM EST [facility] ([facility] [...] Name Value Range Interpretation Code Description [facility]) [facility] by [facility] and reported by [facility]. ID Date Data Source [id number] 05/25/2020 09:22:00 PM EST [facility] ([facility] Name Value Range Interpretation Code Description Data [facility](s) Supporting Document(s) Choriogonadotropin.beta subunit [Moles/volume] in Seru m or Plasma Laboratory test result [facility] ([facility] <content>QUANTITATIVE RESULT QU ALITATIVE INTERPRETATION</content>
<content> </content>
<content><5.0 IU/L NEGATIVE</content>
<content>5.0 - 25.0 IU/L INDETERMINATE</content>
<content>>25.0 IU/L POSITIVE</content>
<content></content> ID Date Data Source [id number] 05/18/2020 11:16:00 AM EST [facility] ([facility] Name Value Range Interpretation Code Description Data [facility](s) Supporting Document(s) Glucose, Fasting 107 mg/dL 70-100 [...] [facility] ID Date Data Source [id number] 05/18/2020 11:16:00 AM EST [facility] ([facility] [...] % 24.0-44.0 [facility] [place] % 4.2 % 0.0-5.0 [facility] ([facility] [...] 10 0.0-0.5 [facility] [place] # 0.2 10 0.0-0.8 [facility] Baso # 0.1 10 0.0-0.2 [facility] ID Date Data Source [id number] 05/18/2020 11:16:00 AM EST [facility] ([facility] Name Value Range Interpretation Code Description Data Anat rce(s) Supporting Document(s) Thyrotropin [Units/volume] in Serum or Plasma 0.407 uIU/ML 0.463-3.98 [facility] ([facility] <content>note:<nlbl:demographic_changed> </content>
<content></content> Thyroxine (T4) free [Mass/volume] in Serum or Plasma 1.15 ng/dL 0.78- 1.33 [facility] ([facility] <content>note:<nlbl:demographic_changed> </content>
<content></content> ID Date Data Source [id number] 05/18/2020 11:16:00 AM EST [facility] ([facility] [...] sensitive enteropathy. Performed at: RN - [facility] [address] [id number] [employer]opol[employer] Teacher: Wen Webb MD, Phone: [phone] Procedure Social History Code Duration Value Status Description Data Source(s ) Smoking 06/22/2020 12:00:00 AM EST Patient has never smoked co mpleted Patient has never smoked [facility] ([facility]) Smoking 06/22/2020 12:00:00 AM EST Patient has never smoked co mpleted Patient has never smoked [facility] ([facility] Vital Signs ID Date Data Source [id number] Name Value Range Interpretation Code Description Data Source(s) Systolic blood pressure 106 mm[Hg] 106 mm[Hg] M [facility]ENT ([facility]) Diastolic blood pressure 71 mm[Hg] 71 mm[Hg] [facility] ([facility]) Heart rate 93 /min 93 /min [facility] ([facility]) Respiratory rate 16 /min 16 /min [facility] ( [facility]) Oxygen saturation in Arterial blood by Pulse oximetry 98 % 98 % [facility] ([facility]) Body temperature 98.2 [degF] 98.2 [degF] [facility] ([facility]) Body weight 142.00 [lb_av] 142.00 [lb_av] MED[facility] T ([facility]) Body height 64 [in_i] 64 [in_i] [facility] ([facility]) 5'4" Body mass index (BMI) [Ratio] 24.4 kg/m2 24.4 k g/m2 [facility] ([facility]) [place] body weight 120 [lb_av] 120 [lb_av] [facility] T ([facility] Body mass index (BMI) [Ratio] 24.2 kg/m2 24.2 k g/m2 [facility] Systolic blood pressure 118 mm[Hg] 118 mm[Hg] M ED[facility] ([facility] [...] 99 % [facility] ([facility] [place] body weight 120 [lb_av] 120 [lb_av] MEDEN [...] 98 % [facility] ([facility] [place] body weight 120 [lb_av] 120 [lb_av] [facility] T ([facility] Body mass index (BMI) [Ratio] 23.6 kg/m2 23.6 k g/m2 [facility] Body weight 139.50 [lb_av] 139.50 [lb_av] [facility] T ([facility] Oxygen saturation in Arterial blood by Pulse oximetry 97 % 97 % [facility] [place] body weight 120 [lb_av] 120 [lb_av] MEDEN [...] 99 % [facility] ([facility] [place] body weight 120 [lb_av] 120 [lb_av] [facility] T ([facility] Body mass index (BMI) [Ratio] 23.7 kg/m2 23.7 k g/m2 [facility]
[2020-07-25 12:55] LABS: BASO % 0.7 % (0.0-1.0); EOS # 0.3 10^3/uL (0.0-0.5); EOS % 5.2 % (0.0-3.0); HEMATOCRIT 38.9 % (36.0-47.0); HEMOGLOBIN 12.5 g/dl (12.0-15.5); LYMPH # 2.1 10^3/uL (1.5-5.0); LYMPH % 37.1 % (24.0-44.0); MEAN CORPUSCULAR HEMOGLOBIN 28.6 pg (27.0-33.0); MEAN CORPUSCULAR HGB CONC 32.1 g/dl (32.0-36.5); MONO # 0.3 10^3/uL (0.0-0.8); MONO % 5.2 % (2.0-8.0); NEUTROPHILS # 2.9 10^3/uL (1.5-8.5); NEUTROPHILS % 51.6 % (36.0-66.0); PLATELET COUNT, AUTOMATED 259 10^3/uL (150-450); RED BLOOD COUNT 4.37 10^6/uL (4.00-5.40); WHITE BLOOD COUNT 5.6 10^3/uL (4.0-10.0)
[2020-07-25 13:21] LABS: ALBUMIN 3.9 GM/DL (3.2-5.2); ALT/SGPT 31 U/L (12-78); BILIRUBIN,DIRECT < 0.1 MG/DL (0.0-0.2); BILIRUBIN,TOTAL 0.2 MG/DL (0.2-1.0); LIPASE 108 U/L (73-393); TOTAL PROTEIN 7.4 GM/DL (6.4-8.2)
--- OUTSIDE RECORDS SUMMARY | 2020-07-25 13:35 | CCD ---
Author Author [facility] Organization [facility] Address Unknown Phone Unavailable Care Team Providers Care Beeswax Bleacher Name Role Phone Pleskach, Mckenzie SCREW DRIVER OPERATOR Unavailable Unavailable Pleskach, Mckenzie SCREW DRIVER OPERATOR Unavailable Unavailable Pleskach, Mckenzie SCREW DRIVER OPERATOR Unavailable Unavailable Pleskach, Mckenzie SCREW DRIVER OPERATOR Unavailable Unavailable Pleskach, Mckenzie SCREW DRIVER OPERATOR Unavailable Unavailable Pleskach, Mckenzie SCREW DRIVER OPERATOR Unavailable Unavailable Pleskach, Mckenzie SCREW DRIVER OPERATOR Unavailable Unavailable Pleskach, Mckenzie SCREW DRIVER OPERATOR Unavailable Unavailable Pleskach, Mckenzie SCREW DRIVER OPERATOR Unavailable Unavailable Pleskach, Mckenzie SCREW DRIVER OPERATOR Unavailable Unavailable Pleskach, Mckenzie SCREW DRIVER OPERATOR Unavailable Unavailable Pleskach, Mckenzie SCREW DRIVER OPERATOR Unavailable Unavailable Pleskach, Mckenzie SCREW DRIVER OPERATOR Unavailable Unavailable Pleskach, Mckenzie SCREW DRIVER OPERATOR Unavailable Unavailable Pleskach, Mckenzie SCREW DRIVER OPERATOR Unavailable Unavailable Pleskach, Mckenzie SCREW DRIVER OPERATOR Unavailable Unavailable Pleskach, Mckenzie SCREW DRIVER OPERATOR Unavailable Unavailable Pleskach, Mckenzie SCREW DRIVER OPERATOR Unavailable Unavailable Pleskach, Mckenzie SCREW DRIVER OPERATOR Unavailable Unavailable Pleskach, Mckenzie SCREW DRIVER OPERATOR Unavailable Unavailable Pleskach, Mckenzie SCREW DRIVER OPERATOR Unavailable Unavailable Pleskach, Mckenzie SCREW DRIVER OPERATOR Unavailable Unavailable Pleskach, Mckenzie SCREW DRIVER OPERATOR Unavailable Unavailable Pleskach, Mckenzie SCREW DRIVER OPERATOR Unavailable Unavailable Pleskach, Mckenzie SCREW DRIVER OPERATOR Unavailable Unavailable Pleskach, Mckenzie SCREW DRIVER OPERATOR Unavailable Unavailable Pleskach, Mckenzie SCREW DRIVER OPERATOR Unavailable Unavailable Pleskach, Mckenzie SCREW DRIVER OPERATOR Unavailable Unavailable Pleskach, Mckenzie SCREW DRIVER OPERATOR Unavailable Unavailable Pleskach, Mckenzie SCREW DRIVER OPERATOR Unavailable Unavailable ELEANOR (AYLIN), Deepa GUNDERSON MD [...] GUNDERSON MD Unavailable Unavailab le ELEANOR (AYLIN), Deeap GUNDERSON MD Unavailable Unavailab le ELEANOR (AYLIN), [...] is protected by Article 27-F of the [facility] Public Health law. If you continue you may have access to information: Regarding HIV / AIDS; Provided by facilities licensed or operated by the [facility] Office of Mental Health; or Provided by the [facility] Office for People With Developmental Disabilities. If such information is present, then the following [facility] mandated warning applies: This information has [...] law may result in a fine or chcf sentence or both. A general authorization for [...] Caitlyn butterfield 06/22/2020 02:15:00 PM EST [facility] ([facility] Outpatient Attender: Mckenzie Warren [facility] Main Office 06/22/2020 1 2:30:00 PM EST [facility] ([facility] Outpatient Attender: Mckenzie Warren [facility] 06/14/2020 0 9:45:00 AM EST [facility] ([facility] Outpatient Attender: Mckenzie Harrisonblair [facility] 05/27/2020 0 8:30:00 AM EST [facility] ([facility] Outpatient Attender: Mckenzie Kelvin [facility] 05/19/2020 1 0:45:00 AM EST [facility] ([facility] Outpatient Attender: Mckenzie Knightbella [facility] 05/13/2020 1 2:30:00 PM [...] Covered democrat ID Covered democrat's relationship to mendenhall Policy Mendenhall Plan Information [facility] [id number] SP [id number] [facility] [id number] 0 [id number] [facility] O [id number] S [id number] O UNAVAILABLE UNAVAILA BLE [facility] [id number] SP [id number] [facility] [id number] SP [id number] [facility] O [id number] O [id number] SELF PAY ONLY [id number] SP [id number] Surgeries/Procedures Procedure Description Date Indications Data Source(s) Brief Emotional/Behav Assessment W/ Scoring Doc Per Standard Inst 05/13/2020 12:00:00 AM EST [facility] ([facility] Results ID Date Data Source [id number] 07/08/2020 12:00:00 AM EST [facility] Name Value Range Interpretation Code Description Data Anat rce(s) Supporting Document(s) SARS-CoV2 Rapid Antigen Negative [facility] This lab was ordered by [facility] and reported by [facility]. ID Date Data Source [id number] 06/23/2020 11:00:00 AM EST [facility] Name Value Range Interpretation Code Description Data Anat rce(s) Supporting Document(s) First Visit [facility] VMWBSz8vOzXTOnCtRMHuIqqYRTjwSQdjHMGkW3P7XMtsVe5OZJemirNxACFqZb8+VUPoXL7dzw7bLZSj gMy 9zAKMuCphoL2KnVYJsz64XQCLjWLvKSsAkLuJeGNNhPCVvUGDeXSQ8ObIaDylkQK8zLOM3BYWtMAmmNF BvGZVoQOOeEwA7In1wNOkgWRbnQr7PMX4qo6MjUDYbBLDqTzfPTFpmMQnwBEAaHFGpZYPrO122byJmBX 4SlMJyBFx0CAUuYuJ3XSJzOmS3ANUvZoQvOvXfXKYq T2Dmy019tbRgcrS7EA5LM9XlZTL2YJt8R8jvOhPrBDUrQEEyMQ2oVdG7ILDeKl5LfOrjAZMgXDYoYh7X uHh3UHJ6JECySj1+Pj4+Sc7sjnSnKhzLYGTdLE3red19KD3YhDXqJJ8UZZlcH26gFFztMa51SIuqRRDm NuWpHFe5Om6sTbUfn4XrS9TiZSo7X5jNIebgF2UnNO ipPY3dJAF7EKGzLs8+Sd9aQQVtOX10VNImTLNDX1GilkXwfbTdDGs5OQSlLk5+Ey6oavEwIhbBELSbNA 1qjc19SY0FVJ9meIimFwcuDEM1E14zqQYjS8sdPaGkA6YavUetPBYfMV1gZ2GnCIpvQAJwAB6ocsCaxZ 4NdKd8QDUnBe7WvXK8JTAnQ80yIGIoIVNMEXDvo3Ml QH4Ck1zqrrOpEOScJJ1RKFGsL7XJN6LbA6mdiCjjXZBjPR3CWOhehASyLPr9XX6WtYOdSCDnK01pkZ3r VH85ZIx+PpS3dpRizF8KgNmaj1UYHQ030v9A8+JjHz7GfHsOTXELLYehGGDA0S6QbBiSPJDAx8Fwx5bk 7gwafAYd/OS/7477bJ0vocl8ag7uosm22a4Q99ps27 [file] fJ76Y12ZkGd7ea/xw98GYZQ8joGFK4a+SOUP MIXER/xrLSI8Twkwi40l+rWQnP4f7FDDAnfPH3Zhe43ncOr2CTd [file] 4c+l30OyVFl2d5G7Z9otUZyOu4WB3Qs//p/vRB61o7Bmag/UKmZ3h1/Félix+LVpTgHPHHNQ7jFOker0hZ [file] HHwe/JKSlCRxBY12AJqql4cQ7WtrfykMi8ouacTlqAK4kVsoQdZflw5ljaZm/id+youth development professional/LQKHDOBEHPzr [file] ruby rails developer+Ac3c/xcG/e/ReNU1u9ZWK3YW5VvmtuN4cf/CVzTC33XR+FBOoMxrwbEODxaXPraunrqA+eN5SlxL [file] AAXG636YmbZ9aIDLfXQZqkeHvoS4m4KQjJdTQOU1N/mD5rwOXStijRp31va2bIqwl2U3WFyz/gEg+LYLE nuiB4gfzMkZZPDMV15N914oANd9kiQBW/7Mc0Y9nl9 h0hm5lGcBSp+aXjLrpZbmgl1dzNxdOb5FbTYo80Nzo2pTLxXGOO8erfJcnW42/C+b6RXBvdJjHiXHDB0 0tlqi3Jm3HYt9gPRm/YmACiHe6E1oMPYfoahcSQIqa7LS5AdqyvZfoE3FeFIj0R5eZ66Shii0//gHvYG ISC/O56GvUGQFXSu/YkWEE8V4+kFlgBMevg/ncA8H7 kCN/0L8Gi5XZivH4wjJ+LcdejkYSkAAjn8HOFHe5Cj0gvBYTh7pIn9ZlGRx9OuC//UBtcWDBabGz79w+ bROjDqAYBMQ8/wBOy8qeT/PZRGyFpZBmtNjk8AURR1n3mA+O2GEwkOJyjSbW7/rb9QyQZZJp7ddJntoR TJo94saiq2DD1nKb1IcnucWPO7wXbUAWhqb27t1rwN yQYwfmEE7G0tJQQVTM55EPu0hlYz4cXw8W0q0uwmHUQCrleY/VcjJgfpCCIt52pREQnS5LpaoT3dYrEv alfW8dUfOQbEvT1auHpXikpVJwOJvtqXzaN6rYF47s4MjsZ3pRt5Wq1Pumx/yhIJfetly4ZFiKuqN5Mo 8cmx4SLyL/ghlvtzMuTN9uC06cIMDH4RpPTQZbOwEr [facility]+M29SC3ZmY231mqmJZtfxqjI58XcaTFPFcYC962ZxIQjFstCdjUUiKvu20KGxkXRdxrE637qc9v54 [file] Drafter Detail/EQvOzpcpe1Ar/h02NkVEzI0QqUffM8KLUyKWr6JWJ5y/mn0T3qj92AB3nIIpAUd8Ld/ppeQu5K5L [file] EpWMO27bXKGImnYvj/JG+kT6x0PdmRN7PiMI5x dZEGDaheNxzr4p+XQu+lABOrR7PuLK2HowlfPFgJ0q6kTpc++WFmFjHtlVpk+VYU9seuQ6Rm3BNUyWqr QOtj3keNNU0su4MmUo/9CK12N4ffE9udnehkd7Mm4T9NzWSeY5ibbAGulkYRs6G6T5tlrEdHB+1pmpul Dc1lhSWBY4sbb/XsSvkPTtvFLGRhIttBPfVPfoPRNZ 5sqlwou60/sr1iu7059hIQV9RbPTYgtkijY0A09q+MysjLx28Bxt/eXkEW3o/7RsFpizhoG77TweZ/ls OSzs3+4Ap6L0L81jPUUWLVaTsUF8nM9sOxPqQfjUxL36nXqkxC4YcqPsz5AFicPoCf0z3ifwRpz2mEEM hxg8iuicb2Mj6Cqhqnq8hB+3QnGy1W4yKdaLqOJShU 29CIKegCsE74XgN1UETaq9m2R1sa0nNo1xRjpGLfnI40zmej3VxJd+/Sbj9cROf0ZlLEIRZu7qwr+gM6 rh1iLSrPz1mcA+Kq1gG4/Lb6KPRAtmdzD/cOVrBHzqsx2epy7mnTRuX8H7lp566bQQ5Yw9iDvJ+dS68D yEfzOlYZVfHpAsLDpUD7aA8OfLtBtlayHr2PNN9f+7 jMQ0t37e+ytcVcb1P+Bennett/05ROIRHGI8U/RwJhWsp7h6uLCJJcOAUhlWL9CVtwbmuffFRWxetg4LHyn4 [file] r8g3KrHlLR22OmXYBTT6lS8Ewjv4ns1tyqzcBb/Mary Ann [file] UDH+EDGER MACHINE [file] PQ8ffH5diZQ3Sd8zgd4B7fW9I/andrés/F34Jza/054G8SXYdj8yXzuJnMS1IQsGZXsmEx3xENkzSMOn5Gx JgAi6+lPZSjvc+Ad1BoS5rvXZxcW46zJOrUh7kyCiA ZeGEhQ5Md9MgmFo5QQcYGITExnFmdwm9Bmi8xVKNRbX/cstk2cYr/jWvC8a7yK/csdPDS98XxmjIhsXW FNPhrd+/2gLAIc9iL+l4MhydQSEx/qYhytURGFd9ArgPuLQP/eX6FtD4zMbzIZLfNLB/Arie+EpLqRwhR 0wn8+5YBH021gj/CMHEY5BHe4jZhqDO6pdtGht1Ep/ /qMBXeNIpvUiMIFLm8MUC+Ffc8hECEeZctGosh3r/cTxXgPDPJZpdgMjPoFahrq3ZL7/o+h3AZ/sWUdi MUWi0KpiFcTeGvKxQ+0VuixY/TmyCXZwThEi7w4vaC+nZk/RH8BFIVQrNuJxhaKnFdafEWsLfxiThVZa 3dqseUBvsgvLUIwrkjjaDfpWCuZSo/bUzlgr6+ju24 [file] C14YdmyHuNrrorPy1pMY1kB8+a9PwOxQ/79sOOqv5sQsLYQVAZswa9y9U178N2ZziIM7QK+Carlos Alberto+Ib8g6 [file] 6DXTLFu6XXcI9eLxzbgxdN2tWJqH/1w+AIzXbX [file] wAm/explosive man/K0tWMLrWlGw2+Keyg3Xr+eAWpVdgRE3iqL [file] THt25mDY+surgical instrument technician/w7XyKr1mlSTUlK1leqBZEcbvx273Y2PG+KrjmOG2bdvki1/PcbxazuLAStKTmXQwzGW [file] 3ALYsaWCNF7WsB7K6VKJ5nj1MjNXXhPJjkdgXbPseRWZsfwYNgtOaqHFHVQgmhYXj3ZX4AFUFPX4S= ID Date Data Source [id number] 06/22/2020 12:00:00 AM EST [facility] Name Value Range Interpretation Code Description Data [facility] rce(s) Supporting Document(s) SARS coronavirus 2 Ag Negative [facility] This lab was ordered by [facility] and reported by [facility]. ID Date Data Source [id number] 06/21/2020 07:41:00 PM EST [facility] ([facility] Name Value Range Interpretation Code Description Data [facility] rce(s) Supporting Document(s) Color, Urine RFX Laboratory test result [facility] ([facility] Appearance, Urine RFX Laboratory test result [facility] ([facility] Specific [place] [facility] RFX 1.016 1.002-1.035 [facility] ([facility] [...] [facility] ID Date Data Source [id number] 06/21/2020 07:41:00 PM EST [facility] ([facility] [...] % 0.0-3.0 [facility] ([facility] [place] % 4.8 % 0.0-5.0 [facility] ([facility] [...] 10 1.5-5.0 [facility] [place] # 0.3 10 0.0-0.8 [facility] ([facility] Baso # 0.1 10 0.0-0.2 [facility] ([facility] Eos # 0.3 10 0.0-0.5 [facility] ([facility] ID Date Data Source [id number] 06/21/2020 07:41:00 PM EST [facility] ([facility] [...] [facility] ID Date Data Source [id number] 06/21/2020 07:41:00 PM EST [facility] ([facility] Name Value Range Interpretation Code Description Data Anat rce(s) Supporting Document(s) Choriogonadotropin.beta subunit ( test) [Pres ence] in Serum or Plasma Laboratory test result [facility] ([facility] <content>note:<nlbl:demographic_changed> </content>
<content></content> ID Date Data Source [id number] 06/21/2020 07:41:00 PM EST [facility] ([facility] [...] of the test. ID Date Data Source [id number] 06/21/2020 07:41:00 PM EST [facility] ([facility] Name Value Range Interpretation Code Description Data Anat rce(s) Supporting Document(s) Wet Prep Laboratory test result [facility] ([facility] MANY EPITHELIAL CELLS PRESENT MODERATE LONG RODS PRESENT MODERATE SHORT RODS PRESENT MODERATE WBC FEW RBC ID Date Data Source [id number] 06/21/2020 07:37:00 PM EST [facility] ([facility] [...] Name Value Range Interpretation Code Description Data [facility] Supporting Document(s) [facility] by [facility] and reported by [facility]. ID Date Data Source [id number] 05/25/2020 09:22:00 PM EST [facility] ([facility] Name Value Range Interpretation Code Description Data [facility](s) Supporting Document(s) Choriogonadotropin.beta subunit [Moles/volume] in Seru m or Plasma Laboratory test result [facility] ([facility] <content>QUANTITATIVE RESULT QU ALITATIVE INTERPRETATION</content>
<content> </content>
<content><5.0 IU/L NEGATIVE</content>
<content>5.0 - 25.0 IU/L INDETERMINATE</content>
<content>>25.0 IU/L POSITIVE</content>
<content></content> ID Date Data Source [id number] 05/18/2020 11:16:00 AM EST [facility] ([facility] Name Value Range Interpretation Code Description Data [facility](s) Supporting Document(s) Glucose, Fasting 107 mg/dL 70-100 [...] [facility] ID Date Data Source [id number] 05/18/2020 11:16:00 AM EST [facility] ([facility] [...] % 24.0-44.0 [facility] ([facility] [place] % 4.2 % 0.0-5.0 [facility] ([facility] [...] 10 0.0-0.5 [facility] [place] # 0.2 10 0.0-0.8 [facility] ([facility] Baso # 0.1 10 0.0-0.2 [facility] ([facility] ID Date Data Source [id number] 05/18/2020 11:16:00 AM EST [facility] ([facility] Name Value Range Interpretation Code Description Data Anat rce(s) Supporting Document(s) Thyrotropin [Units/volume] in Serum or Plasma 0.407 uIU/ML 0.463-3.98 [facility] ([facility] <content>note:<nlbl:demographic_changed> </content>
<content></content> Thyroxine (T4) free [Mass/volume] in Serum or Plasma 1.15 ng/dL 0.78- 1.33 [facility] ([facility] <content>note:<nlbl:demographic_changed> </content>
<content></content> ID Date Data Source [id number] 05/18/2020 11:16:00 AM EST [facility] ([facility] [...] sensitive enteropathy. Performed at: RN - [facility] [address] [id number] Patient Safety Manager: Wen Webb MD, Phone: [phone] Procedure Social History Code Duration Value Status Description Data Source(s ) Smoking 06/22/2020 12:00:00 AM EST Patient has never smoked co mpleted Patient has never smoked [facility] ([facility]) Smoking 06/22/2020 12:00:00 AM EST Patient has never smoked co mpleted Patient has never smoked [facility] ([facility] Vital Signs ID Date Data Source [id number] Name Value Range Interpretation Code Description Data Source(s) Systolic blood pressure 106 mm[Hg] 106 mm[Hg] M [facility] ([facility] Diastolic blood pressure 71 mm[Hg] 71 mm[Hg] [facility] ([facility] Heart rate 93 /min 93 /min [facility] ([facility]) Respiratory rate 16 /min 16 /min [facility] ( [facility] Oxygen saturation in Arterial blood by Pulse oximetry 98 % 98 % [facility] ([facility] Body temperature 98.2 [degF] 98.2 [degF] [facility] ([facility] Body weight 142.00 [lb_av] 142.00 [lb_av] [facility] T ([facility] Body height 64 [in_i] 64 [in_i] [facility] ([facility]) 5'4" Body mass index (BMI) [Ratio] 24.4 kg/m2 24.4 k g/m2 [facility] ([facility]) [place] body weight 120 [lb_av] 120 [lb_av] MED[facility] [...] 99 % [facility] ([facility] [place] body weight 120 [lb_av] 120 [lb_av] MED[facility] [...] 98 % [facility] ([facility] [place] body weight 120 [lb_av] 120 [lb_av] [facility] T ([facility] Body mass index (BMI) [Ratio] 23.6 kg/m2 23.6 k g/m2 [facility] ([facility] Body weight 139.50 [lb_av] 139.50 [lb_av] [facility] T ([facility] Oxygen saturation in Arterial blood by Pulse oximetry 97 % 97 % [facility] ([facility] [place] body weight 120 [lb_av] 120 [lb_av] MEDEN [...] 99 % [facility] ([facility] [place] body weight 120 [lb_av] 120 [lb_av] [facility] T ([facility] Body mass index (BMI) [Ratio] 23.7 kg/m2 23.7 k g/m2 [facility] ([facility]
[2020-07-25 13:59] VITALS: BP 122/65
== END 2020-07-25 14:00 | disposition home or self-care (01) ==
LOC: M ED 11:46
DX: R22.43 Localized swelling, mass and lump, lower limb, bilateral (principal)

== ENCOUNTER 2020-07-29 11:41 | Emergency (ER) | payer OTHER ==
[~2020-07-29] VITALS: Ht 162.6 cm; Wt 64.2 kg
--- OUTSIDE RECORDS SUMMARY | 2020-07-29 12:02 | CCD | Continuity of Care Document ---
Author Author Roberto CHAVARRIA M.D. Organization Unknown Address [address] [place] [address] Phone [phone] Care Team Providers Care Records Clerk Name Role Phone [facility] [phone] Problems Description No Active Problems Social History Type Date Description Comments Sex Unknown Tobacco Use Start: Unknown Never Used Smokeless Tobacco ETOH Use Denies alcohol use Tobacco Use Start: Unknown Patient has never smoked Recreational Drug Use Denies Drug Use Smoking Status Reviewed: 07/13/20 Patient has never smoked Exercise Type/Frequency Exercises [...] SIG Qnty Indications Ordering Provide r Date Anusol-HC 25mg Suppository one by way of rectum twice a day 12units K64.8 Mckenzie Warren FNP 07/13/19 21 Docusate Sodium 100mg Capsules 1 by mouth twice a day 60caps K58.1 Mckenzie Warren FNP 05/13/2020 Miralax 17gm Packet one packet daily, mix in water Unknown Carafate 1GM/10ML Suspension 10ml up to 4 times a day as needed Unknown History Medications Amoxicillin/Clavulanate Potassium 875-125mg Tablets 1 by mouth twice a day for 10 days 20tabs J01.90 Bia rodriguesMckenzie FNP 05/19/2020 - 05/27/2020 No Active Medications Unknown 03/2020 - 05/13/2020 Immunizations CPT Code Status Date Vaccine Lot # [id number] Given 06/22/2020 Influenza Virus Vaccine, Quadrivalent,age 3 and up,multidose vial Vital Signs Date Vital Result Comment 07/13/2020 1:36pm BP Systolic 119 mmHg BP Diastolic 70 mmHg Heart Rate 78 /min Body Temperature 97.4 F Respiratory Rate 16 /min Height 64.25 inches 5'4.25" Weight 142.38 lb O2 % BldC Oximetry 98 % Peak Expiratory Flow Rate 402 Estimated Peak Flow Rate Last Menstrual Period [id number] [place] Body Weight 120 lb BMI (Body Mass Index) 24.2 kg/m2 06/22/2020 1:33pm BP Systolic 118 mmHg BP Diastolic 68 mmHg Heart Rate 82 /min Body Temperature 98.5 F Respiratory Rate 16 /min Height 64.25 inches 5'4.25" Weight 142.38 lb O2 % BldC Oximetry 98 % Peak Expiratory Flow Rate 402 Estimated Peak Flow Rate [place] Body Weight 120 lb BMI (Body Mass Index) 24.2 kg/m2 Results Test Acquired Date Facility Test Result H/L Range Note Laboratory test finding 07/25/2020 [facility] [place], [place] [id number] [phone] iSTAT B-hCG < 5.0 Normal 1 Istat Chem8+ Panel 07/25/2020 Patient Service [place], [place] [id number] [phone] iSTAT HCT 38.0 % Normal 38.0-51.0 iSTAT Glucose 82 mg/dL Normal 70-105 iSTAT Sodium 139 mEq/L Normal 136-145 iSTAT Potassium 3.8 mEq/L Normal 3.5-5.1 iSTAT CA++ 5.2 mg/dL Normal 4.5-5.3 iSTAT Chloride 104 mEq/L Normal 98-109 iSTAT Co2 25.0 MM/L Normal 23.0-27.0 iSTAT BUN 14 mg/dL Normal 8-26 iSTAT Creatinine 0.6 mg/dL Normal 0.6-1.3 CBC With Differential 07/25/2020 [facility] [place] [address] [phone] White Blood Count 5.6 10 Normal 4.0-10.0 Red Blood Count 4.37 10 Normal 4.00-5.40 Hemoglobin 12.5 g/dL Normal 12.0-15.5 Hematocrit 38.9 % Normal 36.0-47.0 Mean Corpuscular Volume 89.0 fl Normal 80.0-96.0 Mean Corpuscular Hemoglobin 28.6 pg Normal 27.0-33.0 Mean Corpuscular HGB Conc 32.1 g/dL Normal 32.0-36.5 Red Cell Distribution Width 12.7 % Normal 11.5-14.5 Platelet Count, Automated 259 10 Normal 150-450 Neutrophils % 51.6 % Normal 36.0-66.0 Lymph % 37.1 % Normal 24.0-44.0 [place] % 5.2 % Normal 2.0-8.0 Eos % 5.2 % High 0.0-3.0 Baso % 0.7 % Normal 0.0-1.0 Immature Granulocyte % 0.2 % Normal 0-3.0 Nucleated Red Blood Cell % 0.0 % Normal 0-0 Neutrophils # 2.9 10 Normal 1.5-8.5 Lymph # 2.1 10 Normal 1.5-5.0 [place] # 0.3 10 Normal 0.0-0.8 Eos # 0.3 10 Normal 0.0-0.5 Baso # 0.0 10 Normal 0.0-0.2 Liver Profile 07/25/2020 Patient Service [facility] [place] [address] [phone] Ast/Sgot 10 U/L Normal 7-37 Alt/SGPT 31 U/L Normal 12-78 Alkaline Phosphatase 73 U/L Normal 45-117 Bilirubin,Total 0.2 mg/dL Normal 0.2-1.0 Bilirubin,Direct < 0.1 mg/dL Normal 0.0-0.2 Total Protein 7.4 GM/DL Normal 6.4-8.2 Albumin 3.9 GM/DL Normal 3.2-5.2 Albumin/Globulin Ratio 1.1 Low 1.2-2.2 Laboratory test finding 07/25/2020 [place] [address] [phone] Lipase 108 U/L Normal 73-393 2 Urine Culture 06/21/2020 [place] [address] [phone] Urine Culture FULL REPORT IN L <SEE NOTE> Normal 3 Wet [place] Trichomonas 06/21/2020 [place] [address] [phone] Wet Prep WET PREP RESULT Normal 4 Chlamydia, GC & Trich Amp 06/21/2020 [place] [address] [phone] Chlamydia Dna Amplification NEGATIVE Normal Nega tive 5 GC Dna Amplification NEGATIVE Normal Negative 6 Trichomonas vaginalis (Amp) NOT DETECTED Normal Negative 7 Laboratory test finding 06/21/2020 [place] [address] [phone] HCG Serum Qualitative NEGATIVE Normal Negative 8 Basic Metabolic Profile 06/21/2020 [place] [address] [phone] Glucose, Fasting 85 mg/dL Normal 70-100 Blood Urea Nitrogen 9 mg/dL Normal 7-18 Creatinine For GFR 0.66 mg/dL Normal 0.55-1.30 Sodium Level 142 mEq/L Normal 136-145 Potassium Serum 3.9 mEq/L Normal 3.5-5.1 Chloride Level 108 mEq/L High 98-107 Carbon Dioxide Level 29 mEq/L Normal 21-32 Anion Gap 5 mEq/L Low 8-16 Calcium Level 9.0 mg/dL Normal 8.5-10.1 CBC With Differential 06/21/2020 [place] [address] [phone] White Blood Count 5.8 10 Normal 4.0-10.0 [...] 36.0-66.0 Lymph % 38.7 % Normal 24.0-44.0 [place] % 4.8 % Normal 0.0-5.0 Eos % 5.2 % High 0.0-3.0 Baso % 0.9 % Normal 0.0-1.0 Immature Granulocyte % 0.2 % Normal 0-3.0 Nucleated Red Blood Cell % 0.0 % Normal 0-0 Neutrophils # 2.9 10 Normal 1.5-8.5 Lymph # 2.3 10 Normal 1.5-5.0 [place] # 0.3 10 Normal 0.0-0.8 Eos # 0.3 10 Normal 0.0-0.5 Baso # 0.1 10 Normal 0.0-0.2 Ua W/ Reflex To Culture 06/21/2020 [place] [address] [phone] Appearance, Urine RFX HAZY Normal Clear Color, Urine RFX YELLOW Normal Yellow PH,Urine RFX 7.0 units Normal 5.0-9.0 Specific [place] Ur Auto RFX 1.016 Normal 1.002-1.035 Protein, [...] Urine Auto RFX 0 /LPF Normal 0-1 Laboratory test finding 05/25/2020 [place] [address] [phone] iSTAT B-hCG < 5.0 Normal 9 Comprehensive Metabolic Profil 05/18/2020 [facility] [place] [phone] Glucose, Fasting 107 mg/dL High 70-100 Blood [...] 1.1 Low 1.2-2.2 CBC With Differential 05/18/2020 [facility] [place] [phone] White Blood Count 4.8 10 Normal 4.0-10.0 [...] 36.0-66.0 Lymph % 36.6 % Normal 24.0-44.0 [place] % 4.2 % Normal 0.0-5.0 Eos % 7.2 % High 0.0-3.0 Baso % 1.1 % High 0.0-1.0 Immature Granulocyte % 0.0 % Normal 0-3.0 Nucleated Red Blood Cell % 0.0 % Normal 0-0 Neutrophils # 2.4 10 Normal 1.5-8.5 Lymph # 1.7 10 Normal 1.5-5.0 [place] # 0.2 10 Normal 0.0-0.8 Eos # 0.3 10 Normal 0.0-0.5 Baso # 0.1 10 Normal 0.0-0.2 TSH And T4 Free ([facility]) 05/18/2020 [facility] [place] [phone] Thyroid Stimulating Hormone 0.407 uIU/ML Low 0. 463-3.98 10 Free T4 1.15 ng/dL Normal 0.78-1.33 11 Laboratory test finding 05/18/2020 [facility] [phone] Tissue Transglutaminase IgA <2 U/mL Normal 0-3 12 1 QUANTITATIVE RESULT QUALITATIVE INTERPRETATION <5.0 IU/L NEGATIVE 5.0 - 25.0 IU/L INDETER MINATE >25.0 IU/L POSITIVE 2 note:<nlbl:demographic_chang ed> 3 FULL REPORT IN LAB NOTES ([facility]). NO GROWTH CLINICAL SIGNIFICANCE 2 OR MORE ORGANISMS 4 MANY EPITHELIAL CELLS PRESEN T MODERATE LONG RODS PRESENT MODERATE SHORT RODS PRESENT MODERATE WBC FEW RBC 5 A negative test result does not exclude the possibility of infection because test results may be affected by improper specimen collection, technical error, specimen mix-up, concurrent antibiotic therapy, or the number of organisms in the specimen which may be below the sensitivity of the test. 6 A negative test result does not exclude the possibility of infection because test results may be affected by improper specimen collection, technical error, specimen mix-up, concurrent antibiotic therapy, or the number of organisms in the specimen which may be below the sensitivity of the test. 7 A negative test result does not exclude the possibility of infection because test results may be affected by improper specimen collection, technical error, sample mix-up, or because the number of organisms in the sample is below the limit of detection of the test. 8 note:<nlbl:demographic_chang ed> 9 QUANTITATIVE RESULT QUALITATIVE INTERPRETATION <5.0 IU/L NEGATIVE 5.0 - 25.0 IU/L INDETER MINATE >25.0 IU/L POSITIVE 10 note:<nlbl:demographic_chang ed> 11 note:<nlbl:demographic_[facility] ed> 12 Negative 0 - 3 Weak Positive 4 - 10 Positive >10 . Tissue Transglutaminase (tTG) has been identified as the endomysial antigen. Studies have demonstr- ated that endomysial IgA antibodies have over 99% specificity for gluten sensitive enteropathy. Performed at: - [facility] [address] [id number] [place] Law Clerk: Wen Webb MD, Phone: [phone] Procedures Date Code Description Status 05/13/2020 98621 Brief Emotional/Beha v Assessment W/ Scoring Doc Per Standard Inst Completed Medical Devices Description No Information Available Encounters Type Date Location Provider Dx Diagnosis Office Visit 07/13/2020 1:30p Main Office Mckenzie Warren FNP K64.8 Other hemorrhoids Office Visit 06/22/2020 1:30p Main Office Mckenzie Warren, [employer] Z71.1 Person w feared hlth complaint in whom no diagnosis is made Office Visit 06/14/2020 10:45a Main Office Mckenzie Warren [employer] J02.9 Acute pharyngitis, unspecified Office Visit 05/27/2020 9:30a Main Office Mckenzie Warren FNP K59.0 0 Constipation, unspecified B27.80 Other infectious mononucleos is without complication Office Visit 05/19/2020 11:45a Main Office Mckenzie Warren [employer] J01.9 0 Acute sinusitis, unspecified Office Visit 05/13/2020 1:30p Main Office Mckenzie Warren [employer] K58.1 Irritable bowel syndrome with constipation L30.1 Dyshidrosis [pompholyx] Z13.89 Encounter for screening for other disorder Assessments Date Code Description Provider 07/13/2020 K64.8 Other hemorrhoids Terrance Warren [employer] 06/22/2020 Z71.1 Person with feared h ealth complaint in whom no diagnosis is made Mckenzie Warren FNP 06/14/2020 J02.9 Acute pharyngitis, unspecified P callieMckenzie FNP 05/27/2020 K59.00 Constipation, unspecified [place] Mckenzie rodrigues, [employer] 05/27/2020 B27.80 Other infectious mononucleosis w ithout complication Mckenzie Warren FNP 05/19/2020 J01.90 Acute sinusitis, unspecified Ple Mckenzie blanco FNP 05/13/2020 K58.1 Irritable bowel syndrome with co nstipation Mckenzie Warren FNP 05/13/2020 L30.1 Dyshidrosis [pompholyx] Mckenzie Warren FNP 05/13/2020 Z13.89 Encounter for screening for othe r disorder Mckenzie Warren FNP Plan of Treatment Future Appointment(s):* 08/02/2020 2:15 pm - Mckenzie Warren FNP at Main Office * 08/25/2020 2:00 pm - Mckenzie Warren FNP at Main Office 07/13/2020 - Mckenzie Warren FNP* K64.8 Other hemorrhoids* New Medication:* Anusol-HC 25 mg - one by way of rectum twice a day * Comments:* Patient encouraged to increase fluids and fiber intake. I recommend she take colace daily. F/U with GI Functional Status Functional Condition Comment Date Status Glasses Active Independent with all ADL's Activ e Independent with all IADL's Acti ve Mental Status Mental Condition Comment Date Status None Active Can Understand Information Activ e Referrals Refer to Reason for Referral Status Appt Date [facility] Closed 06/23/[address] [place] [address] [phone]
--- OUTSIDE RECORDS SUMMARY | 2020-07-29 12:04 | CCD ---
Author Author [facility] Organization [facility] Address Unknown Phone Unavailable Care Team Providers Care Manager Placement Name Role Phone Pleskach, Mckenzie TRACER BULLET CHARGING MACHINE OPERATOR Unavailable Unavailable Pleskach, Mckenzie TRACER BULLET CHARGING MACHINE OPERATOR Unavailable Unavailable Pleskach, Mckenzie TRACER BULLET CHARGING MACHINE OPERATOR Unavailable Unavailable Pleskach, Mckenzie TRACER BULLET CHARGING MACHINE OPERATOR Unavailable Unavailable Pleskach, Mckenzie TRACER BULLET CHARGING MACHINE OPERATOR Unavailable Unavailable Pleskach, Mckenzie TRACER BULLET CHARGING MACHINE OPERATOR Unavailable Unavailable Pleskach, Mckenzie TRACER BULLET CHARGING MACHINE OPERATOR Unavailable Unavailable Pleskach, Mckenzie TRACER BULLET CHARGING MACHINE OPERATOR Unavailable Unavailable Pleskach, Mckenzie TRACER BULLET CHARGING MACHINE OPERATOR Unavailable Unavailable Pleskach, Mckenzie TRACER BULLET CHARGING MACHINE OPERATOR Unavailable Unavailable Pleskach, Mckenzie TRACER BULLET CHARGING MACHINE OPERATOR Unavailable Unavailable Pleskach, Mckenzie TRACER BULLET CHARGING MACHINE OPERATOR Unavailable Unavailable Pleskach, Mckenzie TRACER BULLET CHARGING MACHINE OPERATOR Unavailable Unavailable Pleskach, Mckenzie TRACER BULLET CHARGING MACHINE OPERATOR Unavailable Unavailable Pleskach, Mckenzie TRACER BULLET CHARGING MACHINE OPERATOR Unavailable Unavailable Pleskach, Mckenzie TRACER BULLET CHARGING MACHINE OPERATOR Unavailable Unavailable Pleskach, Mckenzie TRACER BULLET CHARGING MACHINE OPERATOR Unavailable Unavailable Pleskach, Mckenzie TRACER BULLET CHARGING MACHINE OPERATOR Unavailable Unavailable Pleskach, Mckenzie TRACER BULLET CHARGING MACHINE OPERATOR Unavailable Unavailable Pleskach, Mckenzie TRACER BULLET CHARGING MACHINE OPERATOR Unavailable Unavailable Pleskach, Mckenzie TRACER BULLET CHARGING MACHINE OPERATOR Unavailable Unavailable Pleskach, Mckenzie TRACER BULLET CHARGING MACHINE OPERATOR Unavailable Unavailable Pleskach, Mckenzie TRACER BULLET CHARGING MACHINE OPERATOR Unavailable Unavailable Pleskach, Mckenzie TRACER BULLET CHARGING MACHINE OPERATOR Unavailable Unavailable Pleskach, Mckenzie TRACER BULLET CHARGING MACHINE OPERATOR Unavailable Unavailable Pleskach, Mckenzie TRACER BULLET CHARGING MACHINE OPERATOR Unavailable Unavailable Pleskach, Mckenzie TRACER BULLET CHARGING MACHINE OPERATOR Unavailable Unavailable Pleskach, Mckenzie TRACER BULLET CHARGING MACHINE OPERATOR Unavailable Unavailable Pleskach, Mckenzie TRACER BULLET CHARGING MACHINE OPERATOR Unavailable Unavailable Pleskach, Mckenzie TRACER BULLET CHARGING MACHINE OPERATOR Unavailable Unavailable ELEANOR (AYLIN), Deepa GUNDERSON [...] MD Unavailable Unavailab le ELEANOR (AYLIN), Deepa GUNDEROSN MD Unavailable Unavailab le ELEANOR (AYLIN), Deepa [...] is protected by Article 27-F of the [facility] Public Health law. If you continue you may have access to information: Regarding HIV / AIDS; Provided by facilities licensed or operated by the [facility] Office of Mental Health; or Provided by the [facility] Office for People With Developmental Disabilities. If such information is present, then the following [facility] mandated warning applies: This information has [...] law may result in a fine or senior living sentence or both. A general authorization for the release of medical or other information is NOT sufficient authorization for further disc losure. Encounters Encounter Providers Location Date Indications Data Source(s ) Attender: JALYN WEBSTER MD ([place]) 08:21:02 PM EST [facility] Office Visit Attender: Mckenzie Warren [facility] Main Office 02/2021 12:30:00 PM EST [facility] ([facility] Attender: JALYN WEBSTER MD ([place]) 1 08:21:01 [...] 08:21:01 PM EST [facility] Attender: Caitlyn butterfield 06/22/2020 02:15:00 PM EST [facility] ([facility] Office Visit Attender: Mckenzie Warren [facility] Main Office 12:30:00 PM EST [facility] ([facility] Office Visit Attender: Mckenzie Warren [facility] Main Office 04/2021 09:45:00 AM EST [facility] ([facility] Office Visit Attender: Mckenzie Warren [facility] Main Office 08:30:00 AM EST [facility] ([facility] Office Visit Attender: Mckenzie Warren [facility] Main Office 10:45:00 AM EST [facility] ([facility] Office Visit Attender: Mckenzie Warren [facility] Main Office 03/2020 12:30:00 PM EST [facility] ([facility] Immunizations Vaccine Date Status Description Data Source(s) New in 2012. IIV4 06/22/2020 06:41:00 AM EST completed [facility] INFLUENZA VIRUS VACCINE QUADRIVALENT 2019- (6 MOS AN D UP) 06/22/2020 12:00:00 AM EST completed [facility] Medications Medication Brand Name Start Date Product Form Dose Route Admi nistrative Instructions Pharmacy Instructions Status Indications Reaction Description Data Source(s) hydrocortisone acetate 25 MG Rectal Suppository [Anusol HC] Anusol-HC 07/13/2020 12:00:00 AM EST RECTAL active M [facility] ([facility] Amoxicillin 875 MG / Clavulanate 125 MG [...] to m[place]enh[place] Policy [place] Plan Information [facility] [id number] SP [id number] [facility] [id number] 0 [id number] [facility] O [id number] S [id number] O UNAVAILABLE UNAVAILA BLE [facility] [id number] SP [id number] [facility] [id number] SP [id number] [facility] O [id number] O [id number] SELF PAY ONLY [id number] SP [id number] [phone] Surgeries/Procedures Procedure Description Date Indications Data Source(s) Brief Emotional/Behav Assessment W/ Scoring Doc Per Standard Inst 05/13/2020 12:00:00 AM EST [facility] ([facility] Results ID Date Data Source [id number] 07/26/2020 11:45:00 AM EST [facility] Name Value Range Interpretation Code Description Data Anat rce(s) Supporting Document(s) EGD [facility] QSFLNc6gThPYGkIrBMJkNjdTYMkvQAtrIQNeR9E8WYdtYx4TXPlddkGhVBPuAg5+WALrUX3ado1uOAEo gMy 4kCSWbRkajZ7JsRODfj01NYKOxRZmLFuDkYfDcUdZmXJG2XlP9LZB9GhOmAjzaRF8dIJH1CWNqHBdrOK KxLHZcMvTjIATlKU2nMIsgJYtuYr2AGW6fg3IfCTKuGJOoIypTKEdwPWnzUVKqWAHqLDLsF348ovGiKi 9IxZVuEYh4JVZyXrB1UYOcDfK9MLXzUt6nObPod5Fh M6HsYAn0G1pFOxhsM9EwZRsjYY6yGXR0NJNeIm0RpGnzJHinUTNNE9pfAgWyHEFtTFXKVt5+Pj4+DWVu LO4dan31HFSyv0OuORh1M1H9lAYxQ8GzE9UuCOBlgCHHz5wdFyGkGIB8IGJdYfxcUG8PRWLgrPRlRXGf QYbrLS4nilHswDE7YB4GyGijIOFaYBVBOb2+Pi9QYX OdodIhRjJuMQQiN18hcODnhVAoLzkuEDVRED2+RRVzBB1kni44JEEaz5YsYTd9L4npofu9vWJhEPFvMx EuVrSgVMUkJI8kWN2LeCF6nRHzVF8TrJTaSH0EkGCfWI9YJ6CsMNO7R7BeyCEjsdAsK4UdTIHbHKQie3 LfKB2RC7POMSAtLNPgA8PdqJ6dO3ZqI8IwT4Knzapd PIIRKm6JyKP0eURuKPAyO3rtxHxfoYEvOPzsR8WvyHIHDZHUz50wg21amtGsNI9+t2YdNTVsRIc61sf1 ZVAcX/mzYYIUDfb9UGtoHVUcWfQYra7iV8kqTqC2OVc2IxiezLJ8T4qFxKGH5//fpng7ugw1fk/eD+/z 5RKFkj6+w1pq8qXd5eTh0ZCOMPiaVWQYyVSFLPGE23 mgePw0ZPtvxZftyZeT+WYwARRMyCLmf5oU7D5Xy4NElwNgIoP08+Fh9bes4mcq3kOp6+Lm/UqhNO9lq4 ZHQyfGwCDmfEv+lvP/VZ20RJekvZxchkZBYzVCQqQGG+ZlQ0CPSIFqAhyENC6iGFmIUuEhf7Lbk9F4LA CPDXiFAAS+QgQiISEi/u31+niYCZHNer7X7IQUJ6cR [file] FKfOjXMg5TiMRIhny7axqQoun/IJ5c592Ib/Pt5Ywidhh7f/Q46OK0Btb1ERgcd613u04gFkH57s1+evp of products & co founder hP2uY5zs/bSQlFHmmXI1e0vzZC8HywphCvetW2Kc8d XgVkkA/DQFHbHZJdqYIcwuzNzRBJSAEwoy9JEBk6uoSJPkAi78NehgO3GeEyjyZM6havp87XAUI9Pgpx abUZh24x4FhgWL23M+xNrZnPbwvPp7+p9tU3nP3edpsgULVIZv34TrSAhMstIw3yIky5ZPFZ3IS35G74 8Tojjsg3FC42aAPFhmfhlus7AWva1TOLo7AZcclftx [file] MEDICAL NUMERICAL CONTROL OPERATOR+9iYhUEAtUWce4/aisafK7TPZ8qOqb6EsAbM7ozcRE0DqPLw1J07nO5oc+poj6SMI/tsz00yKaR7w+ [file] LCeBTclKgHEqG3c/8WcL6G7U8ioIWKY6jle60oGw/4FMETEVOip2wREanv2B3/Wendi/r3T+bk8NKZQUqM PMyQgI03vpnEqSfPiAEsx+yFi+9XJHCkNw186ibnVW 3/8M9Ti91iDVBYROIXZFX4jrEiVAZ2Wk+89k5tgUZpkQUAICsjx2gApu4CIhMonp/jc1xaqypF8UXE/b WhMDNE8tKRMvowm0PUckta7TeTJK4qIbpcM4AYQEyHdasAXK54Nkcw7GyVZLH1UESn1iedMZkv0aVG8q 0vMGuVXRvLGO5ViXXt+pdQAbOnRtZ68WfItuXYiz9u yBkm0JSwXe8drRfdPSZbJxKdfh+tsXUWHxq3LpWksLr4hQ3++WX/QWN+4hA3bhaLf/fbkMQ00As+78A1 YxclV4d3uWXB0VvnvJgtx3c3A55A0xHJPlm00ZAU235fjOoThK/Ga4HEtXClLeI+ftficKXZtdPCUIHV 53PFLbj4wiX8nM6RvkPdFI4jRZiLUA6PUH3NBywNZC 75EecLdAdJwBu+/e61rfLPzpC4EL1A/CC+/7LHL6+/yg+TnaXb8jF/JeQanfFbNejvkyd+EGUCVUGrew 5Wl2zki36zE8ts6rHpgh9IfkhKlw5HqMWrkHswPi4vDGTWTi10wHnruD1SC5lXdjJZn+LSM7SWTbHDuc Q7ofkP6GkFB20nHouVoZ7iqhOeSLw/aHqA5/L8dxgA fhcxUinB6KI5J4jcEBgsdpeagYzlEqxZpqRDpSQrqd88KGmgOzA96FXI/KbwN8+ruffin/LSfinNNUaNm1v sflnvq195OrYRzaJj5r6vK+44Mc+amRdu6ctyt2b5S8VJmZkailvioMYNOyDnmR6fuvEECH52cgCyArK Safety Lamp Keeper/Lo0C/w2+1l1PvdjMQAN2PeZgkItDfemQARbN/u [file] vAQKT0b95eiYGrGlsH+468fzYJvBZyvMmiJ/josé miguel+hf7vaT41JfM4ldwbJ7zoN/uCIftpCuCQ7J3a5NbE [file] nZuHj4+LjlmIGSw7FVcl5+v/PYOZUnOCAwseRYdK5QTPjghs/1+Px3YQ/lNwM/sMXbop4Dd+Media Associate+ymM3 [file] [id number] ID Date Data Source [id number] 07/25/2020 12:53:00 PM EST [facility] ([facility] Name Value Range Interpretation Code Description Data Anat rce(s) Supporting Document(s) Choriogonadotropin.beta subunit [Moles/volume] in Seru m or Plasma Laboratory test result [facility] ([facility] <content>QUANTITATIVE RESULT QU ALITATIVE INTERPRETATION</content>
<content> </content>
<content><5.0 IU/L NEGATIVE</content>
<content>5.0 - 25.0 IU/L INDETERMINATE</content>
<content>>25.0 IU/L POSITIVE</content>
<content></content> ID Date Data Source [id number] 07/25/2020 12:51:00 PM EST [facility] ([facility] Name Value Range Interpretation Code Description Data Anat rce(s) Supporting Document(s) Laboratory test finding (navigational concept) 38.0 % 38.0-51.0 [facility] ([facility] Laboratory test finding (navigational concept) 82 mg/dL 70-105 [facility] Laboratory test finding (navigational concept) 139 meq/L 136-145 [facility] Laboratory test finding (navigational concept) 3.8 meq/L 3.5-5.1 [facility] ([facility] Laboratory test finding (navigational concept) 5.2 mg/dL 4.5-5.3 [facility] Laboratory test finding (navigational concept) 104 meq/L 98-109 [facility] Laboratory test finding (navigational concept) 25.0 MM/L 23.0-27.0 [facility] Laboratory test finding (navigational concept) 14 mg/dL 8-26 [facility] Laboratory test finding (navigational concept) 0.6 mg/dL 0.6-1.3 [facility] ID Date Data Source [id number] 07/25/2020 12:37:00 PM EST [facility] ([facility] Name Value Range Interpretation Code Description Data Anat rce(s) Supporting Document(s) Lipoprotein lipase [Enzymatic activity/volume] in Serum or P lasma 108 U/L 73-393 [facility] <content>note:<nlbl:[email or web address]> </content>
<content></content> ID Date Data Source [id number] 07/25/2020 12:37:00 PM EST [facility] ([facility] Name Value Range Interpretation Code Description Data Anat rce(s) Supporting Document(s) Ast/Sgot 10 U/L 7-37 [facility] Alt/SGPT 31 U/L 12-78 [facility] Alkaline Phosphatase 73 U/L 45-117 [facility] Bilirubin,Total 0.2 mg/dL 0.2-1.0 [facility] Bilirubin,Direct Laboratory test result 0.0-0.2 [facility] ([facility] Total Protein 7.4 GM/DL 6.4-8.2 [facility] Albumin 3.9 GM/DL 3.2-5.2 [facility] Albumin/Globulin Ratio 1.1 1.2-2.2 [facility] ([facility] ID Date Data Source [id number] 07/25/2020 12:37:00 PM EST [facility] ([facility] Name Value Range Interpretation Code Description Data Anat rce(s) Supporting Document(s) White Blood Count 5.6 10 4.0-10.0 [facility] Red Blood Count 4.37 10 4.00-5.40 [facility] Hemoglobin 12.5 g/dL 12.0-15.5 [facility] Hematocrit 38.9 % 36.0-47.0 [facility] Mean Corpuscular Volume 89.0 fl 80.0-96.0 M [facility] ([facility] Mean Corpuscular Hemoglobin 28.6 pg 27.0-33.0 [facility] Mean Corpuscular HGB Conc 32.1 g/dL 32.0-36.5 [facility] Red Cell Distribution Width 12.7 % 11.5-14.5 [facility] Neutrophils % 51.6 % 36.0-66.0 [facility] Platelet Count, Automated 259 10 150-450 [facility] Lymph % 37.1 % 24.0-44.0 [facility] [place] % 5.2 % 2.0-8.0 [facility] Eos % 5.2 % 0.0-3.0 [facility] Baso % 0.7 % 0.0-1.0 [facility] Immature Granulocyte % 0.2 % 0-3.0 [facility] Neutrophils # 2.9 10 1.5-8.5 [facility] Nucleated Red Blood Cell % 0.0 % 0-0 [facility] ([facility] Lymph # 2.1 10 1.5-5.0 [facility] [place] # 0.3 10 0.0-0.8 [facility] Eos # 0.3 10 0.0-0.5 [facility] Baso # 0.0 10 0.0-0.2 [facility] ID Date Data Source [id number] 07/08/2020 12:00:00 AM EST [facility] Name Value Range Interpretation Code Description Data Anat rce(s) Supporting Document(s) SARS-CoV2 Rapid Antigen Negative [facility] This lab [facility] and reported by [facility]. ID Date Data Source [id number] 06/23/2020 11:00:00 AM EST [facility] Name Value Range Interpretation Code Description Data Anat rce(s) Supporting Document(s) First [facility] JLLSUt9oScXTFgDqQYMxMzmYSDgxJSvkIDApI3W9KRsjJq4SRJzentVdJQRrEc2+LKByZZ1tcn1nHXTy gMy 7oGFAeEbzrZ3PvAOZaj17FHYSqYSiBMwFfNrPtXSZkAIQfNRXzJYS3OtDwNwumNG4zYCH9XUBuBQioUH QeMJDjNDEjGoP0Jb2jZHreSQorCq5RUU5tv4TwQBJsXVJsFhgKULttRFzzANPhFHGpAVLiO361uvJnCO 3RkBWzZSa1EZFnQxC5MTKyEuJ3FBLnGmJoAlMsQIFj M4Wji103blTzqrB2WK6SZ3UpDRE1MEz3T9tmBrQmMCXgILWcVD5nLjN3SDIlCh4OyMezTUMtGVKqQg0M tLh4MGO8MCZoNj0+Pj4+Ce3udaKdLwnTEYAtSA4ilu06HN9EsHOpIA8MJVtvO84bFVdbWs60TOvfSBIy EfKlHTh9Rr4aWhJvg6MnL2YaCBu7N2hLZdogV8OoQM qnUL0iEXQ4IYOeKn9+Sx4eFSFeSQ23GAXmKRTGY6MmclGoluOhKMt5PHPxXz3+Ud2vvrTyDcuLQYZkBO 9lob18MS9LEE7mjJszAbdgZSI9K25uzVVbC6koCwMkB9ZwzVibMCTzXA3gL5DlVOdeAQUcNG0cxdRohL 9FvOa4HDAlWy6JaZE1BKEtN90mTRXaCSNFQFLks2Qv QZ4Ie7vzrmOdCFReOS8MIOXjK7FZQ2RlV2zknKirPLBrCY5FJFyajCLiSTh8BM2AqEGjGQZqO32fhW7y BW29SLb+OtA2viBfhK6IvNcft5LVQG144m3J1+SjAr9MzZbDWPFEPFxeQOFD5Q7CbEhWLZUEe0Nij8ad 7gwafAYd/OS/0320sJ4fpoa2yi2awtc42u8X18dt90 [file] mR73L97IlQl8yw/np09QKAV0glZVM0b+MEDICAL NUMERICAL CONTROL OPERATOR/jbCJN1Cijng03a+fJPgO6d2BWSQthXL7Mil80xbXg8MKj [file] 4c+y32BzRAx3q6N1C6zqNMrJy3WA6Ya//p/mLU73a1Uqfk/DVaN4d3/Félix+BFuVgZSYYPN2wQCsfq8wW [file] HHwe/VXPxSDvEM68JDaly6rI4NgzsonJq2ygewFeyUL0sZxwWhQlvj9mdfXh/id+filter tank operator/LQKHDOBEHPzr [file] parking manager+Ac3c/xcG/e/WqOB3v0LPN3WQ5LkmtfD1fd/FAzPD82JN+FBOoMxrwbEODxaXPraunrqA+mJ7XpgH [file] Resident Care Associate/LPvSszzgb0Pb/k34EgYWvA1XuZciZ1EGCeSXu4NUJ7j/ti9M4bz16SO9zRMrQSu8Cq/agoLt4Y0I [file] QiLAT61wLWMFrlSjh/JG+xH1c4QgkXX1PnRW4w sACMIxauYndd4t+XQu+bOXQnA6VrKW5EoyvlILgX6m6iEnn++WFmFjHtlVpk+WHS5jiiT3Tf6QGKtXlu GEmx7elWRF6wm4OvHt/0LL14Q1oeA8sfwduoq3Yz1F1ViLIqN8jjsKDxatYJz4G1C9tzkEfXE+1pmpul Wm7agZZON5rpq/XsSvkPTtvFLGRhIttBPfVPfoPRNZ 9xmpjqa18/oy6qk1764pWIG4IyMBOlhmhaG6P36j+MbtaTa35Cad/sUsES9d/1UgVdmwqjA83CwiW/ls OSzs3+1Xp8I5P98bAVISVRxImQV0pU8qPzDhXfpXyY13tIthqJ3ZpcGkx2BNzzOnNo0x5pjyGoo1bTAG dsx3weyst1Zi9Ffldus0dE+7OkXe6Z6kYihZvYDWhH 59GCLupFhN11AzX1FPBmw9l4E1fu7mIo2zRltCUcvB01kmto7HqHb+/Sir2qRSf1KvYKJHIj5osa+gM6 ou5dQQrUi5dhK+Kq1gG4/Pj9DSZWhxdcD/eCTjCKqqlo6oqz4lyFLnX2U1vm818jFQ4Sz9lIjV+dS68D nOhzOiZFDaRhOzVFrOA1hM6FnTgBxzxoEq5KLP4h+7 yRJ9e46l+hznJmp8Y+Bennett/58OMZHCBA1N/DdOpEei7r7pEXAIhGTLjxSP5TBoefumqeSHOodew3DBzd1 [file] j7x2YlBpHA09CkPZBTR9pC2Ictn8lk4pmlmaJc/Mary Ann [file] UDH+POOL ATTENDANT+tmqPqg+XCfIEBmaGykDo0XVIoOOoBe/LiKho1Z8nHEM0/l+evbedRa7gGyVSOVRS81mcYn6Fn [file] WQ7ruT0keZM5Jv1nup6Y0cG3A/andrés/F34Jza/177S5RFKdm2sShwQhGA6NKnWBQurBs8oGMwzLARj8Ar JgAi6+lPZSjvc+Cl7YdU8ylHVlqI60eSXeFs1khPyE EcGRtE7Cb3NqtJf7KVbKEWZIqvXejre6Wco6aWWPGoJ/ciau9xUo/qKbR9y9jJ/tybJGA48JxpbYyjIV FNPhrd+/4qWVNo1yV+x7BksdJXIm/kJhgjBMNEh5YxwPzYTL/eA3ZlK5bFelLHKdQKD/Arie+EpLqRwhR 0wn8+7TMQ588rn/OBEGE0DOj4tHezCP4nzjRqg3Pe/ /tYKRoMQboQwHHSPs1KAK+Vcy5mNDKhVgiHrac0p/nPwOuFOKMSmuyIoYsSodny8HU0/o+h3AZ/sWUdi QPQb1StiNeShXfNfL+0VuixY/GtnXXSjZwFe8w2jeK+nZk/WB4OPULAyQvWxagJrNnbmRFeYlmmAlTNm 3dqseUBvsgvLUIwrkjjaDfpWCuZSo/bUzlgr6+ju24 [file] L50GygjWuHrolaHf9fDL5aK6+e4TtZgT/37uCEmt2zLaMIOILNnrf8u8Z313N0ReiKG7DV+Carlos Alberto+Ib8g6 [file] 7MIPPBe9EEgE4yEsmgfipD3dKPmS/1w+AIzXbX [file] wAm/probation agent/S8xMRCzBlUp9+Zcgz4Sq+fGZuSofNZ6svW [file] FTe30zKG+branch director/u9WaYx7ebFQFuC3nhgPWGqzol802C3HQ+VfqhWA0pdlvj5/PcbxazuLAStKTmXQwzGW [file] 2VKNfpHRDQ7VqM2P1QZS1qb9RtEZMzPCltbuPoBkzLLKggsULvqNqhLLLYZngiGPg3AS6WXLWVV5X= ID Date Data Source [id number] 06/22/2020 12:00:00 AM EST [facility] Name Value Range Interpretation Code Description Data Anat rce(s) Supporting Document(s) SARS coronavirus 2 Ag Negative [facility] This lab was ordered by [facility] and reported by [facility]. ID Date Data Source [id number] 06/21/2020 07:41:00 PM EST [facility] ([facility] Name Value Range Interpretation Code Description Data Anat rce(s) Supporting Document(s) Color, Urine RFX Laboratory test result [facility] Appearance, Urine RFX Laboratory test result [facility] PH,Urine RFX 7.0 units 5.0-9.0 [facility] Specific [place] [facility] Auto RFX 1.016 1.002-1.035 [facility] Protein, Urine Auto RFX Laboratory test result [facility] ([facility] Ketone, Urine Auto RFX Laboratory test result [facility] ([facility] Glucose, Urine (Ua) Auto RFX Laboratory test result [facility] ([facility] Urobilinogen, Urine Auto RFX 0.2 mg/dL 0.0-2.0 [facility] ([facility] Bilirubin, Urine Auto RFX Laboratory test result [facility] ([facility] Nitrite, Urine Auto RFX Laboratory test result [facility] ([facility] Leukocyte Esterase Ur Auto RFX Laboratory test result [facility] ([facility] WBC, Urine Auto RFX 0 /HPF 0-3 [facility] ([facility] RBC, Urine Auto RFX 0 /HPF 0-3 [facility] Blood, Urine Blood RFX Laboratory test result [facility] ([facility] Squam Epithelial Cell Ur Aurfx 6 /HPF 0-6 [facility] Bacteria, Urine Auto RFX Laboratory test result [facility] ([facility] Mucus, Urine RFX Laboratory test result [facility] ([facility] Hyaline Cast, Urine Auto RFX 0 /LPF 0-1 [facility] ID Date Data Source [id number] 06/21/2020 07:41:00 PM EST [facility] ([facility] Name Value Range Interpretation Code Description Data Anat rce(s) Supporting Document(s) Red Blood Count 4.04 10 4.00-5.40 [facility] White Blood Count 5.8 10 4.0-10.0 [facility] Hemoglobin 11.8 g/dL 12.0-15.5 [facility] Hematocrit 37.0 % 36.0-47.0 [facility] Mean Corpuscular Volume 91.6 fl 80.0-96.0 M [facility] ([facility] Mean Corpuscular Hemoglobin 29.2 pg 27.0-33.0 [facility] Mean Corpuscular HGB Conc 31.9 g/dL 32.0-36.5 [facility] Red Cell Distribution Width 12.2 % 11.5-14.5 [facility] Platelet Count, Automated 222 10 150-450 [facility] Lymph % 38.7 % 24.0-44.0 [facility] Neutrophils % 50.2 % 36.0-66.0 [facility] Eos % 5.2 % 0.0-3.0 [facility] [place] % 4.8 % 0.0-5.0 [facility] Immature Granulocyte % 0.2 % 0-3.0 [facility] Baso % 0.9 % 0.0-1.0 [facility] Neutrophils # 2.9 10 1.5-8.5 [facility] Nucleated Red Blood Cell % 0.0 % 0-0 [facility] ([facility] Lymph # 2.3 10 1.5-5.0 [facility] Eos # 0.3 10 0.0-0.5 [facility] [place] # 0.3 10 0.0-0.8 [facility] Baso # 0.1 10 0.0-0.2 [facility] ID Date Data Source [id number] 06/21/2020 07:41:00 PM EST [facility] ([facility] Name Value Range Interpretation Code Description Data Anat rce(s) Supporting Document(s) Glucose, Fasting 85 mg/dL 70-100 [facility] Creatinine For GFR 0.66 mg/dL 0.55-1.30 [facility] Blood Urea Nitrogen 9 mg/dL 7-18 [facility] Sodium Level 142 meq/L 136-145 [facility] Potassium Serum 3.9 meq/L 3.5-5.1 [facility] Chloride Level 108 meq/L 98-107 [facility] Anion Gap 5 meq/L 8-16 [facility] Carbon Dioxide Level 29 meq/L 21-32 [facility] Calcium Level 9.0 mg/dL 8.5-10.1 [facility] ID Date Data Source [id number] 06/21/2020 07:41:00 PM EST [facility] ([facility] Name Value Range Interpretation Code Description Data Anat rce(s) Supporting Document(s) Choriogonadotropin.beta subunit ( test) [Pres ence] in Serum or Plasma Laboratory test result [facility] ([facility] <content>note:<nlbl:demographic_changed> </content>
<content></content> ID Date Data Source [id number] 06/21/2020 07:41:00 PM EST [facility] ([facility] [...] of the test. ID Date Data Source [id number] 06/21/2020 07:41:00 PM EST [facility] ([facility] Name Value Range Interpretation Code Description Data Anat rce(s) Supporting Document(s) Wet Prep Laboratory test result [facility] MANY EPITHELIAL CELLS PRESENT MODERATE LONG RODS PRESENT MODERATE SHORT RODS PRESENT MODERATE WBC FEW RBC ID Date Data Source [id number] 06/21/2020 07:37:00 PM EST [facility] ([facility] Name Value Range Interpretation Code Description Data [facility] rce(s) Supporting Document(s) Urine Culture Laboratory test result [facility] ([facility] FULL REPORT IN LAB NOTES ([facility] and [facility] ). NO GROWTH CLINICAL SIGNIFICANCE 2 OR MORE ORGANISMS ID Date Data Source [id number] 06/07/2020 12:00:00 AM EST [facility] Name Value Range Interpretation Code Description Data [facility] Supporting Document(s) [facility]2 [facility] This lab was ordered by [facility] [place] and reported by [facility]. ID Date Data Source [id number] 05/25/2020 09:22:00 PM EST [facility] ([facility] Name Value Range Interpretation Code Description Data [facility]) Supporting Document(s) Choriogonadotropin.beta subunit [Moles/volume] in Seru m or Plasma Laboratory test result [facility] <content>QUANTITATIVE RESULT QU ALITATIVE INTERPRETATION</content>
<content> </content>
<content><5.0 IU/L NEGATIVE</content>
<content>5.0 - 25.0 IU/L INDETERMINATE</content>
<content>>25.0 IU/L POSITIVE</content>
<content></content> ID Date Data Source [id number] 05/18/2020 11:16:00 AM EST [facility] ([facility] [...] specificity for gluten sensitive enteropathy. Performed at: [facility] [place] [id number] Fringe Weaver: Wen Webb MD, Phone: [phone] ID Date Data Source [id number] 05/18/2020 11:16:00 AM EST [facility] ([facility] Name Value Range Interpretation Code Description Data Anat rce(s) Supporting Document(s) Thyroxine (T4) free [Mass/volume] in Serum or Plasma 1.15 ng/dL 0.78- 1.33 [facility] <content>note:<nlbl:demographic_changed> </content>
<content></content> Thyrotropin [Units/volume] in Serum or Plasma 0.407 uIU/ML 0.463-3.98 [facility] ([facility] <content>note:<nlbl:demographic_changed> </content>
<content></content> ID Date Data Source [id number] 05/18/2020 11:16:00 AM EST [facility] ([facility] Name Value Range Interpretation Code Description Data Anat rce(s) Supporting Document(s) White Blood Count 4.8 10 4.0-10.0 [facility] ([facility] Red Blood Count 4.32 10 4.00-5.40 [facility] ([facility] Hemoglobin 12.9 g/dL 12.0-15.5 [facility] ([facility] Hematocrit 39.7 % 36.0-47.0 [facility] ([facility] Mean Corpuscular Hemoglobin 29.9 pg 27.0-33.0 [facility] ([facility] Mean Corpuscular Volume 91.9 fl 80.0-96.0 M [facility] ([facility] Mean Corpuscular HGB Conc 32.5 g/dL 32.0-36.5 [facility] ([facility] Red Cell Distribution Width 11.9 % 11.5-14.5 [facility] ([facility] Platelet Count, Automated 251 10 150-450 [facility] ([facility] Neutrophils % 50.9 % 36.0-66.0 [facility] ([facility] Lymph % 36.6 % 24.0-44.0 [facility] ([facility] [place] % 4.2 % 0.0-5.0 [facility] Eos % 7.2 % 0.0-3.0 [facility] Immature Granulocyte % 0.0 % 0-3.0 [facility] ([facility] Baso % 1.1 % 0.0-1.0 [facility] ([facility] Nucleated Red Blood Cell % 0.0 % 0-0 [facility] ([facility] Neutrophils # 2.4 10 1.5-8.5 [facility] ([facility] Lymph # 1.7 10 1.5-5.0 [facility] Eos # 0.3 10 0.0-0.5 [facility] [place] # 0.2 10 0.0-0.8 [facility] Baso # 0.1 10 0.0-0.2 [facility] ID Date Data Source [id number] 05/18/2020 11:16:00 AM EST [facility] ([facility] Name Value Range Interpretation Code Description Data Anat rce(s) Supporting Document(s) Glucose, Fasting 107 mg/dL 70-100 [facility] ([facility] Creatinine For GFR 0.79 mg/dL 0.55-1.30 [facility] ([facility] Blood Urea Nitrogen 9 mg/dL 7-18 [facility] ([facility] Sodium Level 139 meq/L 136-145 [facility] ([facility] Potassium Serum 3.9 meq/L 3.5-5.1 [facility] ([facility] Chloride Level 107 meq/L 98-107 [facility] ([facility] Anion Gap 4 meq/L 8-16 [facility] Carbon Dioxide Level 28 meq/L 21-32 [facility] ([facility] Ast/Sgot 8 U/L 7-37 [facility] ([facility] Calcium Level 9.5 mg/dL 8.5-10.1 [facility] ([facility] Alkaline Phosphatase 70 U/L 45-117 [facility] ([facility] Bilirubin,Total 0.4 mg/dL 0.2-1.0 [facility] ([facility] Alt/SGPT 19 U/L 12-78 [facility] ([facility] Total Protein 7.3 GM/DL 6.4-8.2 [facility] ([facility] Albumin/Globulin Ratio 1.1 1.2-2.2 [facility] ([facility] Albumin 3.9 GM/DL 3.2-5.2 [facility] Procedure Social History Code Duration Value Status Description Data Source(s ) Smoking 07/13/2020 12:00:00 AM EST Patient has never smoked co mpleted Patient has never smoked [facility] ([facility] Smoking 06/22/2020 12:00:00 AM EST Patient has never smoked co mpleted Patient has never smoked [facility] ([facility]) Vital Signs ID Date Data Source UNK Name Value Range Interpretation Code Description Data Source(s) Body mass index (BMI) [Ratio] 24.2 kg/m2 24.2 k g/m2 [facility] ([facility] [place] body weight 120 [lb_av] 120 [lb_av] [facility] ([facility] Oxygen saturation in Arterial blood by Pulse oximetry 98 % 98 % [facility] ([facility] Body weight 142.38 [lb_av] 142.38 [lb_av] [facility] ([facility] Body height 64.25 [in_i] 64.25 [in_i] [facility] ([facility] 5'4.25" Respiratory rate 16 /min 16 /min [facility] ( [facility] Body temperature 97.4 [degF] 97.4 [degF] [facility] ([facility] Heart rate 78 /min 78 /min [facility] ([facility] Diastolic blood pressure 70 mm[Hg] 70 mm[Hg] [facility] ([facility] Systolic blood pressure 119 mm[Hg] 119 mm[Hg] [facility] ([facility] Systolic blood pressure 106 mm[Hg] 106 mm[Hg] [facility] ([facility], [facility]) Diastolic blood pressure 71 mm[Hg] 71 mm[Hg] [facility] ([facility], [facility]) Heart rate 93 /min 93 /min [facility] ([facility]) Respiratory rate 16 /min 16 /min [facility] ( [facility]) Oxygen saturation in Arterial blood by Pulse oximetry 98 % 98 % [facility] ([facility]) Body temperature 98.2 [degF] 98.2 [degF] [facility] ([facility]) Body weight 142.00 [lb_av] 142.00 [lb_av] [facility] ([facility], [facility]) Body height 64 [in_i] 64 [in_i] [facility] ([facility] 5'4" Body mass index (BMI) [Ratio] 24.4 kg/m2 24.4 k g/m2 [facility] ([facility]) Body mass index (BMI) [Ratio] 24.2 kg/m2 24.2 k g/m2 [facility] ([facility] Heart rate 82 /min 82 /min [facility] ([facility] Diastolic blood pressure 68 mm[Hg] 68 mm[Hg] [facility] ([facility] Systolic blood pressure 118 mm[Hg] 118 mm[Hg] M [facility] ([facility] [place] body weight 120 [lb_av] 120 [lb_av] [facility] ([facility] Oxygen saturation in Arterial blood by Pulse oximetry 98 % 98 % [facility] ([facility] Body weight 142.38 [lb_av] 142.38 [lb_av] [facility] ([facility] Body height 64.25 [in_i] 64.25 [in_i] [facility] ([facility] 5'4.25" Respiratory rate 16 /min 16 /min [facility] ( [facility] Body temperature 98.5 [degF] 98.5 [degF] [facility] ([facility] Systolic blood [...] 99 % [facility] ([facility] [place] body weight 120 [lb_av] 120 [lb_av] [facility] [...] 98 % [facility] ([facility] [place] body weight 120 [lb_av] 120 [lb_av] [facility] ([facility] Body mass index (BMI) [Ratio] 23.6 kg/m2 23.6 k g/m2 [facility] ([facility] Body weight 139.50 [lb_av] 139.50 [lb_av] [facility] ([facility] Oxygen saturation in Arterial blood by Pulse oximetry 97 % 97 % [facility] ([facility] [place] body weight 120 [lb_av] 120 [lb_av] [facility] [...] 99 % [facility] ([facility] [place] body weight 120 [lb_av] 120 [lb_av] [facility] ([facility] Body mass index (BMI) [Ratio] 23.7 kg/m2 23.7 k g/m2 [facility] ([facility]
--- OUTSIDE RECORDS SUMMARY | 2020-07-29 12:06 | CCD ---
Author Author [facility] Organization [facility] Address Unknown Phone Unavailable Care Team Providers Care Dyno Technician Name Role Phone Pleskach, Mckenzie ODD SHOE EXAMINER Unavailable Unavailable Pleskach, Mckenzie ODD SHOE EXAMINER Unavailable Unavailable Pleskach, Mckenzie ODD SHOE EXAMINER Unavailable Unavailable Pleskach, Mckenzie ODD SHOE EXAMINER Unavailable Unavailable Pleskach, Mckenzie ODD SHOE EXAMINER Unavailable Unavailable Pleskach, Mckenzie ODD SHOE EXAMINER Unavailable Unavailable Pleskach, Mckenzie ODD SHOE EXAMINER Unavailable Unavailable Pleskach, Mckenzie ODD SHOE EXAMINER Unavailable Unavailable Pleskach, Mckenzie ODD SHOE EXAMINER Unavailable Unavailable Pleskach, Mckenzie ODD SHOE EXAMINER Unavailable Unavailable Pleskach, Mckenzie ODD SHOE EXAMINER Unavailable Unavailable Pleskach, Mckenzie ODD SHOE EXAMINER Unavailable Unavailable Pleskach, Mckenzie ODD SHOE EXAMINER Unavailable Unavailable Pleskach, Mckenzie ODD SHOE EXAMINER Unavailable Unavailable Pleskach, Mckenzie ODD SHOE EXAMINER Unavailable Unavailable Pleskach, Mckenzie ODD SHOE EXAMINER Unavailable Unavailable Pleskach, Mckenzie ODD SHOE EXAMINER Unavailable Unavailable Pleskach, Mckenzie ODD SHOE EXAMINER Unavailable Unavailable Pleskach, Mckenzie ODD SHOE EXAMINER Unavailable Unavailable Pleskach, Mckenzie ODD SHOE EXAMINER Unavailable Unavailable Pleskach, Mckenzie ODD SHOE EXAMINER Unavailable Unavailable Pleskach, Mckenzie ODD SHOE EXAMINER Unavailable Unavailable Pleskach, Mckenzie ODD SHOE EXAMINER Unavailable Unavailable Pleskach, Mckenzie ODD SHOE EXAMINER Unavailable Unavailable Pleskach, Mckenzie ODD SHOE EXAMINER Unavailable Unavailable Pleskach, Mckenzie ODD SHOE EXAMINER Unavailable Unavailable Pleskach, Mckenzie ODD SHOE EXAMINER Unavailable Unavailable Pleskach, Mckenzie ODD SHOE EXAMINER Unavailable Unavailable Pleskach, Mckenzie ODD SHOE EXAMINER Unavailable Unavailable Pleskach, Mckenzie ODD SHOE EXAMINER Unavailable Unavailable ELEANOR (AYLIN), Deepa GUNDERSON MD [...] MD Unavailable Unavailab le ELEANOR (AYLIN), M JALNY HURT Unavailable Unavailab le ELEANOR (AYLIN), M [...] is protected by Article 27-F of the [facility] Public Health law. If you continue you may have access to information: Regarding HIV / AIDS; Provided by facilities licensed or operated by the [facility] Office of Mental Health; or Provided by the [facility] Office for People With Developmental Disabilities. If such information is present, then the following [facility] mandated warning applies: This information has [...] law may result in a fine or longterm sentence or both. A general authorization for the release of medical or other information is NOT sufficient authorization for further disc losure. Encounters Encounter Providers Location Date Indications Data Source(s ) Attender: JALYN WEBSTER MD ([place]) 08:21:02 PM EST [facility] Office Visit Attender: Mckenzie Warren [facility] Main Office 02/2021 12:30:00 PM EST [...] Caitlyn butterfield 06/22/2020 02:15:00 PM EST [facility] ([facility] Office Visit Attender: Mckenzie Warren [facility] Main Office 12:30:00 PM EST [facility] ([facility] Office Visit Attender: Mckenzie Warren [facility] Main Office 04/2021 09:45:00 AM EST [facility] ([facility] Office Visit Attender: Mckenzie Warren [facility] Main Office 08:30:00 AM EST [facility] ([facility] Office Visit Attender: Mckenzie Warren [facility] Main Office 10:45:00 AM EST [facility] ([facility] Office Visit Attender: Mckenzie Warren [facility] Main Office 03/2020 12:30:00 PM EST [...] type / Coverage type Policy ID Covered constitution party ID Covered constitution party's relationship to mendenhall Policy [place] Plan Information [facility] [id number] SP [id number] [facility] [id number] 0 [id number] [facility] O [id number] S [id number] O UNAVAILABLE UNAVAILA BLE [facility] [id number] SP [id number] [facility] [id number] SP [id number] [facility] EP[employer] O [id number] O [id number] SELF PAY ONLY [id number] SP [id number] Surgeries/Procedures Procedure Description Date Indications Data Source(s) Brief Emotional/Behav Assessment W/ Scoring Doc Per Standard Inst 05/13/2020 12:00:00 AM EST [facility] ([facility] Results ID Date Data Source [id number] 07/26/2020 11:45:00 AM EST [facility] Name Value Range Interpretation Code Description Data Anat rce(s) Supporting Document(s) EGD [facility] HBVPLm8wGaBTFtQnMNPaMwbUDCsrLVjjPUHpV8O5YCvuLf7RWJyfrcDtRBPxMs5+VSEfOD2amk7cERQk gMy 1cQDRnAilvP3GrHYWen09ETRMhISuQIiGtSdPcLbGqGJK3XsJ0DXR6BgZeDhbcLK5aQKE6VIUnBQpjNB LnTSJuFzJvUCKfMX1cWZvcKMyiSa0WIL4bm8RqLTOsJHUpDosOYPnqUKqrBVRpUSZnRGJpT149vrTwWw 6RyUWeMMc6UXOvSnM7FGSeGmA6PSTlBu8hZjFov5Fx Z6VcFZu5H4yQMxmnC3TdZXiyNB9qFYY9FCEiRz2BiJfaOZiaSJCPT1acViLlQMWpRABVIw5+Pj4+DWVu KF5sby19PLIab1VkBVo5O8U2eNCrK4OyX8WnTERrjGIRg0nmYiViKQH2WBVrNjdjFG4YDVCjuTMpVWDu BAdzYS0zyrRrcWI4GY0ZxOzzUPGoNYXCSv9+Pi9QYX HufeYnVhPkRHQvA56ieSWytXVeVjthIVMSNM0+OQDkZS2krv76JMGno7YcXVw7K5chjum5rIPnEAIfFl FfMyNqKIYpCX1sNT8AbAY0dTJwTO2DuZKkGL1MwCGmIP8AF7VrYGG7L8KmiWQwbjFhH7AfPQEbQDVfr2 SrFY6QT2YHLNRcLQAdW6VxpL7pO9IpB9BaY0Jtzqio JVZSZh3BdGA2oWImAYIqB7yvbYhhiUMcFYouO2ArfZSPJTJXz12ou14gzsJeWZ0+l3HrWXLrYWk24st0 ZVAcX/ppHQCLCah4ADqiYFAkMcBYep3eR7ftMmH7ADn9ItnnuPI0P9oApLKZ2//sueo9ybz6nn/eD+/z 3CBEde5+n8ce3xEp7bFw0GPNXQmnFNABoZWTVHUS69 ctxNh5LBxgbMjuvEwW+OBfWIHDkZZyk7rD6I7Rr4COwdVhJdM99+Qf9fyd4hix4aTk6+Lm/GxmCA5eu5 ZHQyfGwCDmfEv+lvP/KJ70OBigrRwylzSIYsUTHvOFY+UvL9CTEAPnMgeMOY6pSLsRMbIbs0Rqx5N5ZT CPDXiFAAS+QgQiISEi/u31+scFFBHDsb3Y4KTDL3aJ [file] VZvEuPIs0QxBUFpia6uluLyra/LF1v666Gt/Az3Vgpmgg4g/P92BU9Alk4CWvkl599s30iLuG10k5+evp operations iX9uJ3wc/nYWgTLdoXU3z7ykYB5UngrcVkkxT6Ai1l XgVkkA/AMIUhRPJztEJgcyaIeCHWTUKegu0NJPc1zqWHKuGq36KedkV5YsWncvIL2uwni31OQQS3Vrxy euMDx67o5RmhBV81O+xNrZnPbwvPp7+a3zT2lF9cczahGACGTx21GsWPkBnvGo5mLvg6JSVY8PR02P57 8Vfpjgz2IH53iSMSyqsyqag8NHbh6RKQx8CWzhpkfz [file] QUARRY BOSS+6zYnTFTfGChp3/nebfhX6MPU0bRsy9KmXcB6xqoRT4QrZSv0S87aR2kn+qbm1CNP/tzw87fOiD5y+ [file] SNiMRirPoHIfM8b/7UuJ4O2T1rqOTZR7wtx06rZw/8SQKJFXOqj2lUWiya9I8/Wendi/r3T+ni2FFORAeU NHrYhO94tafLkKwToMVco+yFi+9SZNOtDx444lqiKX 3/2A4Jk51mXYQFBIXAPFW3qxFmNBY1Um+49w0swXGghKNMVUlvh1cRvd6DGqRgws/fw4jistuK1RIH/b QjQJKC1oSUMkmvj8KAmwna5RmWMV6tDrndA1RBZCdDbaaNZS97Buxp7HfYKQR6HDKn0lqhNOum1tOF7h 4oTHgBKOvPJR0UdIPp+hmJQiKyCsS82KfPpeIEsp2e dHmi3FZbBr8diAhoGSKoQhYuiv+sxRXAJpz6IyBbgUn7lC6++WX/QWN+3mJ0rurZu/sldAI01Fu+78A1 YtnzQ2g6fLVC0ItxbRmup5c4E33S9gLUFro50ENN895beFwNiE/Gm7UQkPEkMbL+ftficKXZtdPCUIHV 59TPUyo1baB7nN0WlyYfBQ6eBJbIBB9TCW4XTsaKUB 75EecLdAdJwBu+/u52kwIPfnH4ZA3C/CC+/7LHL6+/yg+UjcGp0hC/JeQanfFbNejvkyd+EGUCVUGrew 5Ji3ome27pT9lg9aFowx0NqbfGsg2EgQMckHdiAs5zMDUSAn90dPbpdP5XZ7fDksFJb+DOL5HMDfYPkx W3uxsE0ZxFB28pCueIeV6ctbBmPXg/aHqA5/L8dxgA exdeAhtW0EZ2T6xaIRyvpijbzFojCyePicUMbPXfgb13SMbaRiH95PEI/KbwN8+ruffin/DNivzGCFvCi8f wrxmfq901KbDQweBn7c4fD+44Mc+pwOwd4cioe4n2D5HMjFgwtglznYWNBmTzrE0kcuACYC49mcWsKtQ Mental Health Case Manager/Lo0C/w2+4y2SjhkTMNO0TaFtdYfHdjlDHMrW/u [file] sWDBY9y61yvRBrJlwV+468fzYJvBZyvMmiJ/josé miguel+tg4muA12BoS3kddeR2anD/nIByjbQkVQ2Y9u8ZeL [file] nZuHj4+YovyEXYi3MOfk5+v/AJNGXiPKThyyMCjL9KYJnzfw/1+Px3YQ/lNwM/pDXfqx0Zy+Cephalometric Technician+ymM3 [file] QBDvNZjLLjGxYH3A ID Date Data Source [id number] 07/25/2020 12:53:00 PM EST [facility] ([facility] Name Value Range Interpretation Code Description Data Anat rce(s) Supporting Document(s) Choriogonadotropin.beta subunit [Moles/volume] in Seru m or Plasma Laboratory test result [facility] ([facility] <content>QUANTITATIVE RESULT QU ALITATIVE INTERPRETATION</content>
<content> </content>
<content><5.0 IU/L NEGATIVE</content>
<content>5.0 - 25.0 IU/L INDETERMINATE</content>
<content>>25.0 IU/L POSITIVE</content>
<content></content> ID Date Data Source [id number] 07/25/2020 12:51:00 PM EST [facility] ([facility] ID Date Data Source [id number] 07/25/2020 12:37:00 PM EST [facility] ([facility] Name Value Range Interpretation Code Description Data Anat rce(s) Supporting Document(s) Lipoprotein lipase [Enzymatic activity/volume] in Serum or P lasma 108 U/L 73-393 [facility] ([facility] <content>note:<nlbl:demographic_changed> </content>
<content></content> ID Date Data Source [id number] 07/25/2020 12:37:00 PM EST [facility] ([facility] [...] [facility] ID Date Data Source [id number] 07/25/2020 12:37:00 PM EST [facility] ([facility] [...] % 24.0-44.0 [facility] Ogle % 5.2 % 2.0-8.0 [facility] Eos % 5.2 % 0.0-3.0 [facility] Baso % 0.7 % 0.0-1.0 [facility] Immature Granulocyte % 0.2 % 0-3.0 [facility] ([facility] Neutrophils # 2.9 10 1.5-8.5 [facility] ([facility] Nucleated Red Blood Cell % 0.0 % 0-0 [facility] ([facility] Lymph # 2.1 10 1.5-5.0 [facility] Ogle # 0.3 10 0.0-0.8 [facility] Eos # 0.3 10 0.0-0.5 [facility] Baso # 0.0 10 0.0-0.2 [facility] ID Date Data Source [id number] 07/08/2020 12:00:00 AM EST [facility] Name Value Range Interpretation Code Description Data Anat rce(s) Supporting Document(s) SARS-CoV2 Rapid Antigen Negative [facility] This lab [facility] and reported by [facility]. ID Date Data Source [id number] 06/23/2020 11:00:00 AM EST [facility] Name Value Range Interpretation Code Description Data Anat rce(s) Supporting Document(s) First [facility] JJNMJx7rIeFPUfNhOEFtEcsAUHpgVQlvFIDsU3H7HKydYc6RJLwkjhCgKMPvEu7+UQNtLA4chq6bMLUf gMy 7yAHBwJhpdW0NnSKZgf38MRWKaLOhWBiXyMpXjTKBhSRXiHAWmLLU9JyKaCrwaUJ9kZHP3LBKhQBrjZZ YhAPQuTALkSkH2Fm0eCUceJFtdJm8LBN2xt0WwESFbHPOtUgqJLTzvYLbiDWCcMSOeEWFzC218snDtTF 3XrEDdDKg8RDAfLbR8OYDdUgJ7CUHxFxWjMsKgHQFi F5Iws001hpQunuM2NP8FB9PwQDG6XNj5T4ppVeNiQVZsDMNtZP6nZkO3BYAfFp3RuGzbXZPiGDIlHk5F fOc1UCV1VIKlUk8+Pj4+Qt1nxbOiPmuKAIEoHW9bfg06AQ0LtZIfGU3CWWluO08vONohBn93GQbcFXVl CtTiIRd0Da6eRhMkv5EsG8JcVKz8E5vHTdzmH6UlDC nlVN1tTSM4LXMgWb6+Jj3eDNXeBY45LHCcZYWEN7TbyiUotnPxADq3NSWmGy8+Xp7knvHwAvpFXSAjIR 4gek47LW9MIJ9agYubFlzuIGE8D36atGXxO5azXwArA6SghVkjHIBmME7bS9VtHMtrXDYrMY4svrTlfX 5EzOm3YZOgAc9LfAQ3AFTrF03cENArALAVQXLor1Cf TD5Mr5zxtyAoXXEhZS6CQKYbZ6SKS9CfE1cihQopZETqUD5NNXbfzSUeRBg2CO5McTDjHDIoD81wqZ4i RH45HQx+SmJ2fsOsfL4XeXzop9OIHY470u6L6+CzTh1CxCmRIYGCFFeuCENX1E4RhBiLBUZMu0Ain0vd 7gwafAYd/OS/7259xV2wgdi9gy6eboc68w3X17in50 [file] cB29I98GmZm4an/wn42DCHO0quZEU9x+QUARRY BOSS/ceBQB5Ytwnc18c+nEKmJ6s3HGKBrxWX3Rvt91inLz5ZJn [file] 4c+i02KhAYb3n0J2T1poKHbYf1JC8Mi//p/pGC04o1Ofau/APbN3g4/Félix+TZnKsVTCNLL1uMXizb3lK [file] HHwe/XKMpHCmNG49TFoht1vG4ZvklhsSy9yzzdFqzXD6gSdkFsByki4khcFc/id+scan coordinator/LQKHDOBEHPzr [file] welfare project manager+Ac3c/xcG/e/WvLH7z1PED3PU2JuowhD4wz/IFbAU48AU+FBOoMxrwbEODxaXPraunrqA+kS5PagP [file] Crematory Operator/LMwUmjkjt8Ul/f73UeMGfO3MeOkbT7XUKjFUs3YPC0d/vu5V6la85HA4rVOhIIu6Ue/glfIb2K2O [file] ZlVMI30kSOCPjwCvw/JG+iY9h6OtzLR1OaOM8b qTFRQyvrUdzy8o+XQu+mAPKhJ9DrLN8FiqjhZHwZ0z5lMcf++WFmFjHtlVpk+WNH6tulF9Tu7YEMgScv RJhk6xwSZE7pl8OxYs/1TQ46G7olX8vxqmizo0Js0Q6MzVWvQ4hpsQIqrjQOg6M0T3tetVpTS+1pmpul Vt2exSAMX8lvs/XsSvkPTtvFLGRhIttBPfVPfoPRNZ 2diwjak85/yq8ke0243hGOM0ScSBTcflxeV1Y44m+CodqCf94Afl/aMaAU5g/4OiMpfewbI34YbeC/ls OSzs3+5Wc0A1Q58aBTXRPJhGaJR2fZ4wMzGmNtlCrW60nBuvbU3PalGvh8PJpqBoMr0j4oucWrx1wRGD xqg9wyjvt9Zt9Cjtase7aT+4IyGh8O0hPqhEcHJTpR 34RKTqzFnI36TvY0KONgn0t7B9jd9rFo0yKwkRZguG36vazs0UcUy+/Wyi1bISb5MaWUDHMj9cgl+gM6 uv5nMIeKb8xyI+Kq1gG4/Iz0DMHJtmrcV/rCDpDSvndf0usb2fcGBwK3I7nf818rJN7Gd2jNkN+dS68D hHsbUcLCIoSbKyJVhPD7rF7UiZfUdtavEx2POZ9t+7 rYD0c01y+ouzTht7F+Bennett/01QUUNUWA3X/QoKbEmr7y5wNBRWbUDFvpBM5KNjcympgyXHZnvwe8UDep7 [file] v6n7IuOlJZ67TwCRZYN8bL1Xnbz0ht5gdtevNk/Mary Ann [file] UDH+AUTO APPRAISER+tmqPqg+OOnFKKjrPeoQx0ZUJaHLpTm/MxIlh9J5sBYL9/l+iheskWs2wXjWEKRDS71bmKs2Tf [file] OU3nuD3nkTI4Bk2epz2R9bJ6N/andrés/F34Jza/508J7XTJka7tGaqDxKE3OFkXPMnqCr6lUDhfMTLi6Sz JgAi6+lPZSjvc+Ab0SwD0rcBExuS73xNGkNl4tkLsI PrTSbA8Qn2IkmZy2JHbLGFLYecAacuz0Xvf8aKXBVuT/jitf8eBb/gPzB7l1iN/xmkQLN39JwywOukSJ FNPhrd+/2lOGBe8aM+w7ZkwyDVZh/qAgydUOSVi7ZttJeQWN/iQ7CvR8lVkeBBDjLRY/Arie+EpLqRwhR 0wn8+4YUR435jz/QFOOT2NFr9pIqiYV7mzaInf3Uu/ /sUWLfPCwgGfGTTGt5GAK+Jbr4nIJYbKppXwfa5x/qImSdJCAGHphcBfIiHxsxt5IK4/o+h3AZ/sWUdi YTBw6JqmLcUcJpRcH+0VuixY/DcrBSJxTdWb2x3jjE+nZk/VC5CMOMZnAcFszrXrArfeNEqUwvsYtQTv 3dqseUBvsgvLUIwrkjjaDfpWCuZSo/bUzlgr6+ju24 [file] E03HyrfGqPebmkIi4iWD5sD1+y5WoLpQ/98sDLld2mXfAVNJADaym8b5B651Z3DtsOL6BG+Carlos Alberto+Ib8g6 [file] 4SLMXMr9RWcI6bYjsbfzoP4iNBdW/1w+AIzXbX [file] ULX6EGQQl1B6ZJhUQ7H2rNhhmjRtYQxQ4zFVGqn28gEkGGyTtgajDU7/miz9VOM7UgRhOseqLaIU/[place] [file] wAm/laboratory specialist/L3eJEWqKbEq0+Ccaw6Dr+fQArAzvAT9lsD [file] XSn44iNN+price analyst/o1GyFs2udYMLhN9umrFZHdmky504V7ZB+VlpvQA6wogjv6/PcbxazuLAStKTmXQwzGW [file] 8DCPfiEUZU8OaZ7T4BWB3dx9AsSONpDWipknMeTtfBUMcdrFBjcMmcDFHATmxfHDy4JD0FSRHTS1C= ID Date Data Source [id number] 06/22/2020 12:00:00 AM EST [facility] Name Value Range Interpretation Code Description Data Anat rce(s) Supporting Document(s) SARS coronavirus 2 Ag Negative [facility] This lab was ordered by [facility] and reported by [facility]. ID Date Data Source [id number] 06/21/2020 07:41:00 PM EST [facility] Name Value Range Interpretation Code Description Data Anat rce(s) Supporting Document(s) Color, Urine RFX Laboratory test result [facility] Appearance, Urine RFX Laboratory test result [facility] PH,Urine RFX 7.0 units 5.0-9.0 [facility] Specific [place] [facility] Auto RFX 1.016 1.002-1.035 [facility] ([facility] ID Date Data Source [id number] 06/21/2020 07:41:00 PM EST [facility] ([facility] [...] % 0.0-3.0 [facility] Ogle % 4.8 % 0.0-5.0 [facility] Immature Granulocyte % 0.2 [...] 10 0.0-0.5 [facility] Ogle # 0.3 10 0.0-0.8 [facility] Baso # 0.1 10 0.0-0.2 [facility] ID Date Data Source [id number] 06/21/2020 07:41:00 PM EST [facility] ([facility] [...] [facility] ID Date Data Source [id number] 06/21/2020 07:41:00 PM EST [facility] ([facility] Name Value Range Interpretation Code Description Data Anat rce(s) Supporting Document(s) Choriogonadotropin.beta subunit ( test) [Pres ence] in Serum or Plasma Laboratory test result [facility] ([facility] <content>note:<nlbl:demographic_changed> </content>
<content></content> ID Date Data Source [id number] 06/21/2020 07:41:00 PM EST [facility] ([facility] [...] of the test. ID Date Data Source [id number] 06/21/2020 07:41:00 PM EST [facility] ([facility] Name Value Range Interpretation Code Description Data Anat rce(s) Supporting Document(s) Wet Prep Laboratory test result [facility] ([facility] MANY EPITHELIAL CELLS PRESENT MODERATE LONG RODS PRESENT MODERATE SHORT RODS PRESENT MODERATE WBC FEW RBC ID Date Data Source [id number] 06/21/2020 07:37:00 PM EST [facility] ([facility] Name Value Range Interpretation Code Description Data [facility] rce(s) Supporting Document(s) Urine Culture Laboratory test result [facility] ([facility] FULL REPORT IN LAB NOTES ([facility] and [facility] ). NO GROWTH CLINICAL SIGNIFICANCE 2 OR MORE ORGANISMS ID Date Data Source [id number] 06/07/2020 12:00:00 AM EST [facility] Name Value Range Interpretation Code Description [facility]) [facility] by [facility] and reported by [facility]. ID Date Data Source [id number] 05/25/2020 09:22:00 PM EST [facility] ([facility] Name Value Range Interpretation Code Description Data [facility] Supporting Document(s) Choriogonadotropin.beta subunit [Moles/volume] in Seru m or Plasma Laboratory test result [facility] <content>QUANTITATIVE RESULT QU ALITATIVE INTERPRETATION</content>
<content> </content>
<content><5.0 IU/L NEGATIVE</content>
<content>5.0 - 25.0 IU/L INDETERMINATE</content>
<content>>25.0 IU/L POSITIVE</content>
<content></content> ID Date Data Source [id number] 05/18/2020 11:16:00 AM EST [facility] ([facility] [...] specificity for gluten sensitive enteropathy. Performed at: [facility] [place] [id number] Property Technician: Wen Webb MD, Phone: [phone] ID Date Data Source [id number] 05/18/2020 11:16:00 AM EST [facility] ([facility] Name Value Range Interpretation Code Description Data Anat rce(s) Supporting Document(s) Thyroxine (T4) free [Mass/volume] in Serum or Plasma 1.15 ng/dL 0.78- 1.33 [facility] <content>note:<nlbl:demographic_changed> </content>
<content></content> Thyrotropin [Units/volume] in Serum or Plasma 0.407 uIU/ML 0.463-3.98 [facility] ([facility] <content>note:<nlbl:demographic_changed> </content>
<content></content> ID Date Data Source [id number] 05/18/2020 11:16:00 AM EST [facility] ([facility] [...] % 24.0-44.0 [facility] [place] % 4.2 % 0.0-5.0 [facility] ([facility] [...] 10 0.0-0.5 [facility] ([facility] [place] # 0.2 10 0.0-0.8 [facility] ([facility] Baso # 0.1 10 0.0-0.2 [facility] ([facility] ID Date Data Source [id number] 05/18/2020 11:16:00 AM EST [facility] ([facility] [...] co mpleted Patient has never smoked [facility] ([facility], [facility]) Vital Signs ID Date Data Source UNK Name Value Range Interpretation Code Description Data Source(s) Body mass index (BMI) [Ratio] 24.2 kg/m2 24.2 k g/m2 [facility] ([facility] [place] body weight 120 [lb_av] 120 [lb_av] [facility] [...] Systolic blood pressure 119 mm[Hg] 119 mm[Hg] [facility] ([facility] Systolic blood pressure 106 mm[Hg] 106 mm[Hg] [facility] ([facility], [facility]) Diastolic blood pressure 71 mm[Hg] 71 mm[Hg] [facility] ([facility], [facility]) Heart rate 93 /min 93 /min [facility] ([facility]) Respiratory rate 16 /min 16 /min [facility] ( [facility]) Oxygen saturation in Arterial blood by Pulse oximetry 98 % 98 % [facility] ([facility]) Body temperature 98.2 [degF] 98.2 [degF] [facility] ([facility]) Body weight 142.00 [lb_av] 142.00 [lb_av] [facility] T ([facility], [facility]) Body height 64 [in_i] 64 [in_i] [facility] ([facility]) 5'4" Body mass index (BMI) [Ratio] 24.4 kg/m2 24.4 k g/m2 [facility] ([facility]) Body mass index (BMI) [Ratio] 24.2 kg/m2 24.2 k g/m2 [facility] ([facility] Heart rate 82 /min 82 /min [facility] ([facility] Diastolic blood pressure 68 mm[Hg] 68 mm[Hg] [facility] ([facility] Systolic blood pressure 118 mm[Hg] 118 mm[Hg] [facility] ([facility] [place] body weight 120 [lb_av] 120 [lb_av] [facility] [...] 99 % [facility] ([facility] [place] body weight 120 [lb_av] 120 [lb_av] [facility] [...] 98 % [facility] ([facility] [place] body weight 120 [lb_av] 120 [lb_av] [facility] ([facility] Body mass index (BMI) [Ratio] 23.6 kg/m2 23.6 k g/m2 [facility] ([facility] Body weight 139.50 [lb_av] 139.50 [lb_av] [facility] ([facility] Oxygen saturation in Arterial blood by Pulse oximetry 97 % 97 % [facility] ([facility] [place] body weight 120 [lb_av] 120 [lb_av] [facility] [...] 99 % [facility] ([facility] [place] body weight 120 [lb_av] 120 [lb_av] [facility] ([facility] Body mass index (BMI) [Ratio] 23.7 kg/m2 23.7 k g/m2 [facility] ([facility]
[2020-07-29 12:22] LABS: BASO % 0.6 % (0.0-1.0); EOS # 0.2 10^3/uL (0.0-0.5); EOS % 2.6 % (0.0-3.0); HEMATOCRIT 36.2 % (36.0-47.0); LYMPH # 1.9 10^3/uL (1.5-5.0); MEAN CORPUSCULAR HEMOGLOBIN 29.2 pg (27.0-33.0); MEAN CORPUSCULAR HGB CONC 33.1 g/dl (32.0-36.5); MEAN CORPUSCULAR VOLUME 88.1 fl (80.0-96.0); MONO # 0.3 10^3/uL (0.0-0.8); MONO % 4.8 % (2.0-8.0); NEUTROPHILS # 4.2 10^3/uL (1.5-8.5); NEUTROPHILS % 63.7 % (36.0-66.0); PLATELET COUNT, AUTOMATED 277 10^3/uL (150-450); RED BLOOD COUNT 4.11 10^6/uL (4.00-5.40); WHITE BLOOD COUNT 6.6 10^3/uL (4.0-10.0)
--- NOTE | 2020-07-29 13:58 | REP ---
INDICATION: llq pain. COMPARISON: Thumb. TECHNIQUE: Transabdominal and transvaginal scanning. FINDINGS: Uterine dimensions are normal at 7.5 x 3.9 x 4.5 cm. Endometrium is 1.0 cm thick and somewhat heterogeneous. No intrauterine gestational sac is seen. There is a small quantity of free fluid in the cul-de-sac. There is a 2.2 x 2.2 x 1.3 cm hypoechoic cyst in the left ovary. Left ovarian dimensions are 3.7 x 2.1 x 3.9 cm. The right ovary measures 3.4 x 1.5 x 2.3 cm. There is a 1.1 x 1.3 x 0.7 cm cyst in the right ovary. IMPRESSION: Empty uterus. Minimal free fluid in the cul-de-sac. No adnexal mass seen. Nonspecific ultrasound findings. Consider clinical and possibly sonographic follow-up. <Electronically signed by Polo Cochran > 07/29/20 [id number]
[2020-07-29 14:49] VITALS: BP 116/62
== END 2020-07-29 14:51 | disposition home or self-care (01) ==
LOC: M ED 11:41
DX: Z32.01 Encounter for pregnancy test, result positive (principal); O34.80 Maternal care for other abnormalities of pelvic organs, unspecified trimester

== ENCOUNTER → 2020-08-04 | Outpatient (REF) | payer OTHER ==
[2020-08-04 16:54] LABS: HEMATOCRIT 37.5 % (36.0-47.0); HEMOGLOBIN 12.2 g/dl (12.0-15.5); MEAN CORPUSCULAR HEMOGLOBIN 28.8 pg (27.0-33.0); MEAN CORPUSCULAR HGB CONC 32.5 g/dl (32.0-36.5); MEAN CORPUSCULAR VOLUME 88.4 fl (80.0-96.0); PLATELET COUNT, AUTOMATED 323 10^3/uL (150-450); RED BLOOD COUNT 4.24 10^6/uL (4.00-5.40); WHITE BLOOD COUNT 6.7 10^3/uL (4.0-10.0)
[2020-08-04 17:54] LABS: HCG, SERUM QUANTITATIVE 1474 MIU/ML
[2020-08-04 18:13] LABS: HEPATITIS C VIRUS ABY INDEX < 0.0 INDEX (<0.8)
[2020-08-04 18:14] LABS: HIV 1&2 SCREEN CENTAUR NEGATIVE (NEGATIVE)
== END ==
LOC: M LAB REF 16:23
PROVIDERS: ATTEND Obstetrics & Gynecology
DX: Z32.01 Encounter for pregnancy test, result positive (principal); O36.80X0 Pregnancy with inconclusive fetal viability, not applicable or unspecified

== ENCOUNTER 2020-08-12 15:33 | Emergency (ER) | payer OTHER ==
[~2020-08-12] VITALS: Ht 162.6 cm; Wt 64.6 kg
[2020-08-12] MEDS ORDERED: PRENTAB53 PO (15:58)
[2020-08-12 17:21] LABS: BASO # 0.1 10^3/uL (0.0-0.2); BASO % 0.7 % (0.0-1.0); EOS # 0.1 10^3/uL (0.0-0.5); EOS % 1.4 % (0.0-3.0); HEMATOCRIT 36.1 % (36.0-47.0); LYMPH # 1.8 10^3/uL (1.5-5.0); LYMPH % 24.8 % (24.0-44.0); MEAN CORPUSCULAR HEMOGLOBIN 29.7 pg (27.0-33.0); MEAN CORPUSCULAR HGB CONC 33.2 g/dl (32.0-36.5); MEAN CORPUSCULAR VOLUME 89.4 fl (80.0-96.0); MONO # 0.4 10^3/uL (0.0-0.8); MONO % 4.9 % (2.0-8.0); NEUTROPHILS % 67.9 % (36.0-66.0); PLATELET COUNT, AUTOMATED 269 10^3/uL (150-450); RED BLOOD COUNT 4.04 10^6/uL (4.00-5.40); WHITE BLOOD COUNT 7.4 10^3/uL (4.0-10.0)
[2020-08-12 17:56] LABS: ALT/SGPT 16 U/L (12-78); BILIRUBIN,DIRECT 0.1 MG/DL (0.0-0.2); BILIRUBIN,TOTAL 0.3 MG/DL (0.2-1.0); BLOOD UREA NITROGEN 8 MG/DL (7-18); CALCIUM LEVEL 9.1 MG/DL (8.5-10.1); CARBON DIOXIDE LEVEL 26 MEQ/L (21-32); CHLORIDE LEVEL 105 MEQ/L (98-107); CREATININE FOR GFR 0.66 MG/DL (0.55-1.30); GLUCOSE, FASTING 76 MG/DL (70-100); HCG, SERUM QUANTITATIVE 28163 MIU/ML; LIPASE 88 U/L (73-393); POTASSIUM SERUM 3.7 MEQ/L (3.5-5.1); SODIUM LEVEL 137 MEQ/L (136-145); TOTAL PROTEIN 7.3 GM/DL (6.4-8.2)
--- NOTE | 2020-08-12 19:33 | REPVR ---
PROCEDURE INFORMATION: Exam: US First Trimester, Transabdominal and US , Transvaginal Exam date and time: 08/12/2020 6:40 PM Age: 19 years old Clinical indication: complicated by abdominal or pelvic pain; Right lower quadrant; First trimester; Gestational age or lmp: 07/04/2020; ; Additional info: R pelvic pain, RO ectopic TECHNIQUE: Imaging protocol: Real-time transabdominal obstetrical ultrasound of the maternal pelvis and a first trimester , less than 14 weeks 0 days, with image documentation. Transvaginal imaging was used for better evaluation of the fetus, adnexa, and/or cervix. COMPARISON: No relevant prior studies available. FINDINGS: Gestation: An intrauterine gestational sac is identified. A well-formed yolk sac can be identified as well. A pole is identified and estimated at 6 weeks 2 days. Cardiac activity seen at 95 bpm. The cardiac activity is below the expected of approximately 120 bpm and a follow-up would be important to re-evaluate this. This is very early in gestation and the fetus cannot be adequately evaluated therefore complete survey should be done at 18-20 weeks gestation. Uterus: The uterus is retroverted and measuring 6.9 cm in length by 4.3 cm in AP dimension by 4.6 cm in transverse dimension. Right adnexa: The right ovary measures 3 cm in length by 1.5 cm in thickness and there is vascular flow of the right ovary. Left adnexa: The left ovary measures approximately 2.4 cm in length by 2.1 cm in thickness. There is vascular flow of the left ovary. There is a 1.5 cm round sonolucent structure with debris in the central portion of the left ovary and probably a hemorrhagic collapsing corpus luteum which is very similar to the examination of 07/29/2020. There is a small amount of free fluid at the left adnexa with debris. Urinary bladder: The urinary bladder was empty and there is bowel gas obscuring detail on the transabdominal portion of the study. IMPRESSION: 1. Intrauterine gestational sac. pole estimated at 6 weeks 2 days. Heart rate 95 bpm and below the expected of 120 bpm therefore a follow-up should be obtained to ensure that the heart rate is adequate. Also a follow-up for complete survey would be important. 2. Within the central portion of the left ovary is a 1.5 cm probable collapsing corpus luteum cyst with internal hemorrhage identified with a crescent of free fluid left adnexa Electronically signed by: Sae Alcantara On 08/12/2020 19:33:38 PM
[2020-08-12 19:58] VITALS: BP 112/58
--- NOTE | 2020-08-13 07:48 | ED PDOC ---
Post-Departure Follow-Up dr pinto faxed formal reprt of 1st trimester us for fu.Jeni Faye MD Aug 13, 2020 07:48
== END 2020-08-12 20:10 | disposition home or self-care (01) ==
LOC: M ED 15:33
DX: O21.9 Vomiting of pregnancy, unspecified (principal); O26.891 Other specified pregnancy related conditions, first trimester; O99.281 Endocrine, nutritional and metabolic diseases complicating pregnancy, first trimester; Z3A.01 Less than 8 weeks gestation of pregnancy; R93.5 Abnormal findings on diagnostic imaging of other abdominal regions, including retroperitoneum; Z87.42 Personal history of other diseases of the female genital tract; Z87.448 Personal history of other diseases of urinary system; Z79.899 Other long term (current) drug therapy

== ENCOUNTER → 2020-08-19 | Outpatient (CLI) | payer OTHER ==
[~2020-08-19] MED LIST changes: +PRENTAB53 PO
--- NOTE | 2020-08-19 16:12 | REP ---
INDICATION: DATING AND VIABILITY. COMPARISON: 08/12/2020. TECHNIQUE: Multiple sonographic images of the gravid uterus. FINDINGS: There is an intrauterine gestational sac with a pole. heart rate is 123 beats per minute. pole crown-rump length is 0.8 cm. This corresponds to a gestational age of 6 weeks 6 days and an CARLOS of 04/08/2021. Gestational age by LMP is 6 weeks 4 days with an CARLOS of 04/10/2021. Left ovary: The left ovary measures 2.0 x 2.1 x 2.3 cm. There is a left ovarian cyst measuring 1.4 cm, likely a corpus luteum. Right ovary: The right ovary measures 1.5 by 2.4 by 1.1 cm. There is no dominant right ovarian mass or cyst. There is vascular flow in both ovaries with the with color Doppler evaluation. There is a small volume of free fluid in the left adnexa. IMPRESSION: Six week 6 day viable intrauterine gestation. Left ovarian cyst, likely corpus luteum. Small volume of free fluid in the left adnexa. <Electronically signed by Ladarius Evans > 08/19/20 0915
== END ==
LOC: M WHC 13:06
PROVIDERS: ATTEND Obstetrics & Gynecology
DX: O36.80X0 Pregnancy with inconclusive fetal viability, not applicable or unspecified (principal); Z3A.01 Less than 8 weeks gestation of pregnancy

== ENCOUNTER → 2020-08-26 | Outpatient (CLI) | payer OTHER ==
[2020-08-26 16:52] LABS: FREE T4 1.18 NG/DL (0.78-1.33); THYROID STIMULATING HORMONE 0.211 uIU/ML (0.463-3.98)
== END ==
LOC: M WUC 13:52
PROVIDERS: ATTEND Nurse Practitioner Family
DX: R94.6 Abnormal results of thyroid function studies (principal)

== ENCOUNTER 2020-08-27 15:59 | Emergency (ER) | payer OTHER ==
[~2020-08-27] VITALS: Ht 162.6 cm; Wt 65.9 kg
[2020-08-27 17:51] LABS: BASO % 0.4 % (0.0-1.0); EOS # 0.1 10^3/uL (0.0-0.5); EOS % 1.5 % (0.0-3.0); HEMOGLOBIN 12.7 g/dl (12.0-15.5); LYMPH # 1.7 10^3/uL (1.5-5.0); LYMPH % 19.8 % (24.0-44.0); MEAN CORPUSCULAR HGB CONC 33.4 g/dl (32.0-36.5); MEAN CORPUSCULAR VOLUME 89.8 fl (80.0-96.0); MONO # 0.5 10^3/uL (0.0-0.8); MONO % 5.3 % (2.0-8.0); NEUTROPHILS # 6.1 10^3/uL (1.5-8.5); NEUTROPHILS % 72.6 % (36.0-66.0); PLATELET COUNT, AUTOMATED 286 10^3/uL (150-450); RED BLOOD COUNT 4.23 10^6/uL (4.00-5.40); WHITE BLOOD COUNT 8.5 10^3/uL (4.0-10.0)
[2020-08-27 18:53] VITALS: BP 136/77
[2020-08-27 19:05] LABS: APPEARANCE, URINE CLEAR (CLEAR); BACTERIA, URINE AUTO NEGATIVE (NEGATIVE); BILIRUBIN, URINE AUTO NEGATIVE (NEGATIVE); BLOOD, URINE BLOOD NEGATIVE (NEGATIVE); COLOR, URINE YELLOW (YELLOW); GLUCOSE, URINE (UA) AUTO NEGATIVE (NEGATIVE); KETONE, URINE AUTO NEGATIVE (NEGATIVE); LEUKOCYTE ESTERASE, URINE AUTO NEGATIVE (NEGATIVE); MUCUS, URINE SMALL (NEGATIVE); NITRITE, URINE AUTO NEGATIVE (NEGATIVE); PROTEIN, URINE AUTO NEGATIVE (NEGATIVE); RBC, URINE AUTO 0 /HPF (0-3); SPECIFIC GRAVITY URINE AUTO 1.014 (1.002-1.035); SQUAMOUS EPITHELIAL CELL UR AU 1 /HPF (0-6); UROBILINOGEN, URINE AUTO 0.2 mg/dL (0.0-2.0); WBC, URINE AUTO 1 /HPF (0-3)
--- NOTE | 2020-08-27 22:42 | ECGEPIP ---
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
== END 2020-08-27 19:18 | disposition home or self-care (01) ==
LOC: M ED 15:59
DX: O26.91 Pregnancy related conditions, unspecified, first trimester (principal); O99.281 Endocrine, nutritional and metabolic diseases complicating pregnancy, first trimester; Z3A.08 8 weeks gestation of pregnancy; Z87.442 Personal history of urinary calculi; Z79.899 Other long term (current) drug therapy

== ENCOUNTER 2020-08-29 19:57 | Emergency (ER) | payer OTHER ==
[~2020-08-29] VITALS: Ht 162.6 cm; Wt 65.9 kg
[2020-08-29] MEDS ORDERED: ASPIRIN 81 MG CHEW TABLET PO ONE (21:10)
[2020-08-29] MEDS ORDERED: NS 1,000 ML IV ONE (21:10)
[2020-08-29 21:58] LABS: BASO % 0.3 % (0.0-1.0); EOS # 0.2 10^3/uL (0.0-0.5); EOS % 2.5 % (0.0-3.0); HEMATOCRIT 35.8 % (36.0-47.0); HEMOGLOBIN 11.9 g/dl (12.0-15.5); LYMPH # 2.1 10^3/uL (1.5-5.0); MEAN CORPUSCULAR HEMOGLOBIN 29.6 pg (27.0-33.0); MEAN CORPUSCULAR HGB CONC 33.2 g/dl (32.0-36.5); MEAN CORPUSCULAR VOLUME 89.1 fl (80.0-96.0); MONO # 0.6 10^3/uL (0.0-0.8); MONO % 6.2 % (2.0-8.0); NEUTROPHILS % 66.9 % (36.0-66.0); PLATELET COUNT, AUTOMATED 295 10^3/uL (150-450); RED BLOOD COUNT 4.02 10^6/uL (4.00-5.40); WHITE BLOOD COUNT 8.9 10^3/uL (4.0-10.0)
[2020-08-29 22:30] VITALS: BP 110/59
[2020-08-29 22:33] LABS: ALBUMIN 3.6 GM/DL (3.2-5.2); ALT/SGPT 15 U/L (12-78); BILIRUBIN,DIRECT < 0.1 MG/DL (0.0-0.2); BILIRUBIN,TOTAL 0.1 MG/DL (0.2-1.0); BLOOD UREA NITROGEN 6 MG/DL (7-18); CALCIUM LEVEL 8.5 MG/DL (8.5-10.1); CARBON DIOXIDE LEVEL 26 MEQ/L (21-32); CHLORIDE LEVEL 108 MEQ/L (98-107); CK-MB VALUE MASS < 1.0 NG/ML (<3.6); CPK CREATINE PHOSPHOKINASE 38 U/L (26-192); GLUCOSE, FASTING 82 MG/DL (70-100); MB/CK RELATIVE INDEX 2.63 (< OR =4); POTASSIUM SERUM 3.5 MEQ/L (3.5-5.1); SODIUM LEVEL 139 MEQ/L (136-145); TROPONIN I < 0.02 NG/ML (< 0.10)
--- NOTE | 2020-08-30 19:54 | ECGEPIP ---
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
== END 2020-08-29 23:09 | disposition home or self-care (01) ==
LOC: M ED 19:57
DX: R00.2 Palpitations (principal)

== ENCOUNTER → 2020-09-09 | Outpatient (REF) | payer OTHER | LOC: M LAB REF 12:12 | PROVIDERS: ATTEND Obstetrics & Gynecology | DX: Z34.01 Encounter for supervision of normal first pregnancy, first trimester (principal); Z36.89 Encounter for other specified antenatal screening ==

== ENCOUNTER → 2020-09-21 | Outpatient (REF) | payer OTHER ==
[2020-09-21 15:01] LABS: HEMOGLOBIN 11.6 g/dl (12.0-15.5); MEAN CORPUSCULAR HEMOGLOBIN 29.7 pg (27.0-33.0); MEAN CORPUSCULAR HGB CONC 33.1 g/dl (32.0-36.5); MEAN CORPUSCULAR VOLUME 89.7 fl (80.0-96.0); PLATELET COUNT, AUTOMATED 289 10^3/uL (150-450)
[2020-09-21 15:29] LABS: FREE T4 1.21 NG/DL (0.76-1.46); THYROID STIMULATING HORMONE 0.201 uIU/ML (0.358-3.740)
[2020-09-21 16:14] LABS: HEPATITIS C VIRUS ABY INDEX < 0.0 INDEX (<0.8)
[2020-09-24 09:05] LABS: HIV 1&2 SCREEN CENTAUR NEGATIVE (NEGATIVE)
== END ==
LOC: M PLALAB 08:29
PROVIDERS: ATTEND Obstetrics & Gynecology
DX: Z36.89 Encounter for other specified antenatal screening (principal); Z3A.11 11 weeks gestation of pregnancy

== ENCOUNTER → 2020-10-04 | Outpatient (CLI) | payer OTHER | LOC: M PLALAB 13:51 | PROVIDERS: ATTEND Obstetrics & Gynecology | DX: Z34.82 Encounter for supervision of other normal pregnancy, second trimester (principal) ==

== ENCOUNTER 2020-10-07 14:14 | Emergency (ER) | payer OTHER ==
[~2020-10-07] VITALS: Ht 162.6 cm; Wt 65.0 kg
[2020-10-07] MEDS ORDERED: NS 1,000 ML IV ONE (16:05)
[2020-10-07] MEDS ORDERED: METOCLOPRAMIDE INJ 10MG/2ML VIAL (J2765 PER 1) IV ONE (16:05)
[2020-10-07] MEDS ORDERED: ONDA4TAB6 PO (17:12)
[2020-10-07 17:48] VITALS: BP 103/55
== END 2020-10-07 18:08 | disposition home or self-care (01) ==
LOC: M ED 14:14
DX: O21.9 Vomiting of pregnancy, unspecified (principal); Z3A.00 Weeks of gestation of pregnancy not specified
CPT/HCPCS: 80047; 96361; 96374; 99284; J2765

== ENCOUNTER → 2020-11-16 | Outpatient (REF) | payer OTHER ==
[~2020-11-16] MED LIST changes: +IRON27TA2 PO; +PEPC1TAB5 PO
== END ==
LOC: M PLALAB 10:09
PROVIDERS: ATTEND Advanced Practice Midwife
DX: Z36.89 Encounter for other specified antenatal screening (principal); Z3A.19 19 weeks gestation of pregnancy

== ENCOUNTER → 2020-12-21 | Outpatient (CLI) | payer OTHER ==
--- NOTE | 2020-12-21 11:01 | REP ---
INDICATION: F/U ANATOMY. COMPARISON: Comparison study November 18, 2020.. TECHNIQUE: Transabdominal obstetric sonography. FINDINGS: Scanning through the gravid uterus demonstrates a viable single intrauterine gestation in cephalic lie. motion is observed and heart rate is recorded at 149 beats per minute. A anterior placenta is seen, grade 0, without evidence of placenta previa. Closed cervical length is measured at 3.6 cm transabdominally. No extrauterine abnormality is observed. Amniotic fluid is subjectively normal. Four-chamber heart, left and right ventricular outflow tract views are obtained today and appear normal although slightly limited due to position. Less than optimal head measurements today due to position. Biometry chart: BPD 6.2 cm, 25 weeks 1 day Head circumference 23.0 cm, 25 weeks 0 days Abdominal circumference 20.2 cm, 24 weeks 5 days Femur length 4.4 cm, 24 weeks 3 days Humeral length 4.3 cm, 25 weeks 4 days HC AC ratio normal 1.14 Cephalic index normal 0.75 Estimated weight 726 g, 1 lb 9 oz, 40th percentile for 24 weeks 5 days IMPRESSION: Viable single intrauterine gestation at 25 weeks 0 days by today's composite sonographic criteria. CARLOS by today's sonography 05 April 2021. No complication identified. Expected gestational age estimate based on known CARLOS of 07 April 2021 is 24 weeks 5 days. <Electronically signed by Polo Cochran > 12/21/20 [id number]
== END ==
LOC: M WHC 08:00
PROVIDERS: ATTEND Specialist
DX: Z36.89 Encounter for other specified antenatal screening (principal); Z3A.25 25 weeks gestation of pregnancy

== ENCOUNTER 2020-12-25 04:41 | Emergency (ER) | payer OTHER ==
[~2020-12-25] VITALS: Ht 162.6 cm; Wt 74.0 kg
[2020-12-25 08:26] VITALS: BP 118/70
== END 2020-12-25 08:27 | disposition home or self-care (01) ==
LOC: M ED 04:41
DX: O99.512 Diseases of the respiratory system complicating pregnancy, second trimester (principal); Z3A.24 24 weeks gestation of pregnancy; Z79.899 Other long term (current) drug therapy

== ENCOUNTER → 2021-01-04 | Outpatient (CLI) | payer OTHER ==
[2021-01-04 15:55] LABS: HEMOGLOBIN 10.4 g/dl (12.0-15.5); MEAN CORPUSCULAR HEMOGLOBIN 29.3 pg (27.0-33.0); MEAN CORPUSCULAR HGB CONC 32.5 g/dl (32.0-36.5); MEAN CORPUSCULAR VOLUME 90.1 fl (80.0-96.0); PLATELET COUNT, AUTOMATED 361 10^3/uL (150-450); RED BLOOD COUNT 3.55 10^6/uL (4.00-5.40); WHITE BLOOD COUNT 10.6 10^3/uL (4.0-10.0)
== END ==
LOC: M PLALAB 12:51
PROVIDERS: ATTEND Advanced Practice Midwife
DX: Z34.92 Encounter for supervision of normal pregnancy, unspecified, second trimester (principal)
CPT/HCPCS: 36415; 82950; 83020; 85027; 86850; 86900; 86901; G0463

== ENCOUNTER 2021-01-05 14:33 | Emergency (ER) | payer OTHER ==
[~2021-01-05] VITALS: Ht 162.6 cm; Wt 75.4 kg
[2021-01-05 16:26] LABS: BASO % 0.4 % (0.0-1.0); EOS # 0.1 10^3/uL (0.0-0.5); EOS % 1.2 % (0.0-3.0); HEMATOCRIT 32.4 % (36.0-47.0); HEMOGLOBIN 10.7 g/dl (12.0-15.5); LYMPH # 1.9 10^3/uL (1.5-5.0); LYMPH % 17.1 % (24.0-44.0); MEAN CORPUSCULAR HEMOGLOBIN 29.5 pg (27.0-33.0); MEAN CORPUSCULAR VOLUME 89.3 fl (80.0-96.0); MONO # 0.5 10^3/uL (0.0-0.8); MONO % 4.6 % (2.0-8.0); NEUTROPHILS # 8.5 10^3/uL (1.5-8.5); NEUTROPHILS % 75.9 % (36.0-66.0); PLATELET COUNT, AUTOMATED 344 10^3/uL (150-450); RED BLOOD COUNT 3.63 10^6/uL (4.00-5.40); WHITE BLOOD COUNT 11.2 10^3/uL (4.0-10.0)
[2021-01-05 17:05] LABS: BLOOD UREA NITROGEN 5 MG/DL (7-18); CALCIUM LEVEL 8.5 MG/DL (8.5-10.1); CARBON DIOXIDE LEVEL 24 MEQ/L (21-32); CHLORIDE LEVEL 106 MEQ/L (98-107); GLOMERULAR FILTRATION RATE > 60.0 (>60); GLUCOSE, FASTING 71 MG/DL (70-100); POTASSIUM SERUM 4.2 MEQ/L (3.5-5.1); SODIUM LEVEL 138 MEQ/L (136-145); THYROID STIMULATING HORMONE 0.835 uIU/ML (0.358-3.740)
[2021-01-05 17:56] LABS: HCG, SERUM QUANTITATIVE 10965 MIU/ML
[2021-01-05] MEDS ORDERED: NS 1,000 ML IV ONE (18:05)
[2021-01-05 19:25] VITALS: BP 116/60
== END 2021-01-05 19:32 | disposition home or self-care (01) ==
LOC: M ED 14:33
DX: O99.012 Anemia complicating pregnancy, second trimester (principal); O99.342 Other mental disorders complicating pregnancy, second trimester; O26.812 Pregnancy related exhaustion and fatigue, second trimester; Z3A.26 26 weeks gestation of pregnancy; O99.282 Endocrine, nutritional and metabolic diseases complicating pregnancy, second trimester; Z87.442 Personal history of urinary calculi; Z79.899 Other long term (current) drug therapy

== ENCOUNTER → 2021-01-13 | Outpatient (CLI) | payer OTHER ==
--- NOTE | 2021-01-13 15:59 | REP ---
INDICATION: F/U ANATOMY. COMPARISON: 01/05/2021 TECHNIQUE: Transabdominal FINDINGS: Multiple ultrasonographic images of the gravid uterus shows a single living intrauterine gestation in the cephalic presentation. Doppler interrogation of the heart shows a heart rate of 142 beats per minute. The placenta is anterior not low lying. The cervix measures 3.5 cm in length and is closed. The subjective amniotic fluid volume is within normal limits. BPD: 7.2 cm 29 weeks 0 days HC: 26.4 cm 28 weeks 5 days AC: 24.1 cm 28 weeks 3 days FL: 5.2 cm 27 weeks 5 days The estimated weight is 1193 g which is at the 61st percentile for a 27 week 4 day gestational age and the 46 percentile for a 28 week 0 day gestational age. Again, the heart and ventricular outflow tracts were seen to be unremarkable. IMPRESSION: Single living intrauterine gestation as described above with an estimated gestational age 28 weeks 5 days via composite criteria and an estimated date of delivery of 04/02/2021 by today's exam. No anomalies were detected on the images provided. <Electronically signed by Reynold Hope > 01/13/21 [id number]
== END ==
LOC: M WHC 14:06
PROVIDERS: ATTEND Advanced Practice Midwife
DX: Z36.89 Encounter for other specified antenatal screening (principal); Z3A.28 28 weeks gestation of pregnancy

== ENCOUNTER 2021-01-20 14:15 | Outpatient (CLI) | payer OTHER ==
[~2021-01-20] VITALS: Ht 162.6 cm; Wt 77.1 kg
[2021-01-20 15:22] VITALS: BP 104/59
[2021-01-20] MEDS ORDERED: HOME MED LIST COMPLETE! XX SCH (15:25)
--- NOTE | 2021-01-20 18:25 | IPNPDOC ---
Text Note Date of Service The patient was seen on 01/20/21. NOTE Labor and Delivery Triage Note: S: 20-year-old 1 at 28w5d presents with c/o cramping and vaginal discharge. Denies vaginal bleeding or LOF. Reports active movement. O: vss, AF no ctx Cat 1 tracing Gen: well appearing, NAD Abd: gravid, soft, nttp cx: Long/ closed SSE: GC culture collected -LALO and wet prep were negative TAUS: Cephalic, adequate amniotic fluid, active fetus A/P: 20-year-old G1 at 28w5d not in PTL reassuring status -home with PTL precautions and FKCs. -f/u at next OB appt Jeanie Sahni MD VS,Jonna, I+O VSJonna, I+O Vital Signs Date Time Temp Pulse Resp B/P (MAP) Pulse Ox O2 Delivery O2 Flow Rate FiO2 01/20/21 15:22 98.1 96 18 104/59 (74) JEANIE SAHNI MD. Jan 20, 2021 18:25
[2021-01-20 21:52] LABS: GC DNA AMPLIFICATION NEGATIVE (NEGATIVE)
== END 2021-01-20 18:39 | disposition home or self-care (01) ==
LOC: M LDO 14:15
PROVIDERS: ATTEND Obstetrics & Gynecology
DX: O26.893 Other specified pregnancy related conditions, third trimester (principal); R25.2 Cramp and spasm; Z3A.28 28 weeks gestation of pregnancy; N89.8 Other specified noninflammatory disorders of vagina
CPT/HCPCS: 59025; 76815; 87661; G0378; G0463

== ENCOUNTER → 2021-02-01 | Outpatient (REF) | payer OTHER | LOC: M SFHCWAGY 17:23 | PROVIDERS: ATTEND Advanced Practice Midwife | DX: Z36.89 Encounter for other specified antenatal screening (principal); Z3A.30 30 weeks gestation of pregnancy | CPT/HCPCS: 87086; 90471; 90715; G0463 ==

== ENCOUNTER → 2021-02-25 | Outpatient (CLI) | payer OTHER ==
[2021-02-25 13:00] LABS: HEMATOCRIT 34.1 % (36.0-47.0); HEMOGLOBIN 11.2 g/dl (12.0-15.5); MEAN CORPUSCULAR HEMOGLOBIN 28.9 pg (27.0-33.0); MEAN CORPUSCULAR HGB CONC 32.8 g/dl (32.0-36.5); MEAN CORPUSCULAR VOLUME 88.1 fl (80.0-96.0); PLATELET COUNT, AUTOMATED 328 10^3/uL (150-450); RED BLOOD COUNT 3.87 10^6/uL (4.00-5.40); WHITE BLOOD COUNT 10.9 10^3/uL (4.0-10.0)
== END ==
LOC: M PLALAB 09:54
PROVIDERS: ATTEND Obstetrics & Gynecology
DX: O99.013 Anemia complicating pregnancy, third trimester (principal); Z3A.00 Weeks of gestation of pregnancy not specified
CPT/HCPCS: 36415; 85027; G0463

== ENCOUNTER 2021-03-03 15:01 | Outpatient (CLI) | payer OTHER ==
[~2021-03-03] VITALS: Ht 162.6 cm; Wt 81.4 kg
[2021-03-03] MEDS ORDERED: HOME MED LIST COMPLETE! XX SCH (15:25)
[2021-03-03 15:33] VITALS: BP 128/68
[2021-03-03 15:59] VITALS: BP 128/78
[2021-03-03 16:14] VITALS: BP 130/76
--- NOTE | 2021-03-05 10:58 | ECGEPIP ---
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 Electronically Signed on 03-05-2021 10:58:18 EDT by Lyle Rivera
--- NOTE | 2021-03-29 17:07 | IPNPDOC ---
Text Note Date of Service The patient was seen on 03/03/21 - 03/04/21. NOTE Patient is a 20-year-old at 34 weeks and 5 days estimated gestational age who presents to labor and delivery with symptoms of dizziness and nausea. Patient states that she was concerned for symptoms of preeclampsia and therefore decided to present to labor and delivery triage for evaluation. She denies contractions but endorses lower abdominal cramping. Denies leaking of fluid but endorses vaginal discharge. Denies vaginal bleeding, reports positive movement. She states that she believes the baby is moving less than normal. States that she is staying well-hydrated and eating appropriately. Patient also states that she feels symptoms of vertigo occasionally. Objective: BP 130/76 HR 90 T 97.8 SpO2 99% RR 20 FHT-reactive NST EKG normal sinus rhythm Assessment and plan: Patient is a 20-year-old at 34 weeks and 5 days estimated gestational age presented to labor and delivery for rule out preeclampsia. Normal range blood pressures on exam remainder vital signs within normal limits. EKG within normal limits. Reactive NST and normalized movement. Patient given reassurance and discharged home with instructions to follow-up as an outpatient. JENNIFER RUSSELL MD Mar 29, 2021 17:07
== END 2021-03-03 16:30 | disposition home or self-care (01) ==
LOC: M LDO 15:01
PROVIDERS: ATTEND Obstetrics & Gynecology
DX: O26.893 Other specified pregnancy related conditions, third trimester (principal); R42 Dizziness and giddiness; R11.0 Nausea; Z3A.34 34 weeks gestation of pregnancy
CPT/HCPCS: 59025; 81001; 87086; 93005; G0378; G0463

== ENCOUNTER → 2021-03-14 | Outpatient (REF) | payer OTHER | LOC: M SFHCWAGY 12:52 | PROVIDERS: ATTEND Advanced Practice Midwife | DX: Z36.89 Encounter for other specified antenatal screening (principal); Z3A.00 Weeks of gestation of pregnancy not specified | CPT/HCPCS: 87081; 87186; G0463 ==

== ENCOUNTER → 2021-03-21 | Outpatient (CLI) | payer OTHER ==
[2021-03-21 14:30] LABS: HEMATOCRIT 33.8 % (36.0-47.0); HEMOGLOBIN 11.1 g/dl (12.0-15.5); MEAN CORPUSCULAR HEMOGLOBIN 28.9 pg (27.0-33.0); MEAN CORPUSCULAR HGB CONC 32.8 g/dl (32.0-36.5); PLATELET COUNT, AUTOMATED 345 10^3/uL (150-450); RED BLOOD COUNT 3.84 10^6/uL (4.00-5.40); WHITE BLOOD COUNT 10.3 10^3/uL (4.0-10.0)
[2021-03-21 14:59] LABS: CREATININE,RANDOM URINE 66.2 MG/DL; TOTAL PROTEIN,RANDOM URINE 30.1 MG/DL (0.0-12.0)
[2021-03-21 15:05] LABS: ALT/SGPT 18 U/L (12-78); BILIRUBIN,TOTAL 0.3 MG/DL (0.2-1.0); CREATININE FOR GFR 0.64 MG/DL (0.55-1.30); GLOMERULAR FILTRATION RATE > 60.0 (>60); LDH LACTATE DEHYDROGENASE 165 U/L (84-246); URIC ACID 3.8 MG/DL (2.6-6.0)
== END ==
LOC: M PLALAB 11:02
PROVIDERS: ATTEND Advanced Practice Midwife
DX: O13.9 Gestational [pregnancy-induced] hypertension without significant proteinuria, unspecified trimester (principal)
CPT/HCPCS: 36415; 82247; 82565; 82570; 83615; 84156; 84450; 84460; 84550; 85027; G0463

== ENCOUNTER 2021-07-23 18:18 | Emergency (ER) | payer OTHER ==
[~2021-07-23] VITALS: Ht 162.6 cm; Wt 85.5 kg
[2021-07-23 18:19] VITALS: BP 121/68
[2021-07-23] MEDS ORDERED: NS 1,000 ML IV ONE (19:20)
[2021-07-23] MEDS ORDERED: METOCLOPRAMIDE INJ 10MG/2ML VIAL (J2765 PER 1) IV ONE (19:20)
[2021-07-23] MEDS ORDERED: PANTOPRAZOLE 40MG VIAL (C9113 PER 1) IV ONE (19:20)
[2021-07-23 19:38] LABS: BASO % 0.4 % (0.0-1.0); EOS # 0.3 10^3/uL (0.0-0.5); EOS % 2.7 % (0.0-3.0); HEMATOCRIT 38.7 % (36.0-47.0); HEMOGLOBIN 12.5 g/dl (12.0-15.5); LYMPH # 2.5 10^3/uL (1.5-5.0); LYMPH % 26.9 % (24.0-44.0); MEAN CORPUSCULAR HEMOGLOBIN 27.9 pg (27.0-33.0); MEAN CORPUSCULAR HGB CONC 32.3 g/dl (32.0-36.5); MEAN CORPUSCULAR VOLUME 86.4 fl (80.0-96.0); MONO # 0.4 10^3/uL (0.0-0.8); MONO % 4.5 % (2.0-8.0); NEUTROPHILS # 5.9 10^3/uL (1.5-8.5); NEUTROPHILS % 65.2 % (36.0-66.0); PLATELET COUNT, AUTOMATED 336 10^3/uL (150-450); RED BLOOD COUNT 4.48 10^6/uL (4.00-5.40); WHITE BLOOD COUNT 9.1 10^3/uL (4.0-10.0)
[2021-07-23 20:03] LABS: HEMOGLOBIN A1c 5.1 %
[2021-07-23 20:14] LABS: ALBUMIN 3.8 GM/DL (3.2-5.2); ALT/SGPT 37 U/L (12-78); BILIRUBIN,DIRECT < 0.1 MG/DL (0.0-0.2); BILIRUBIN,TOTAL 0.2 MG/DL (0.2-1.0); BLOOD UREA NITROGEN 13 MG/DL (7-18); CALCIUM LEVEL 8.9 MG/DL (8.5-10.1); CARBON DIOXIDE LEVEL 25 MEQ/L (21-32); CHLORIDE LEVEL 107 MEQ/L (98-107); CREATININE FOR GFR 0.75 MG/DL (0.55-1.30); GLOMERULAR FILTRATION RATE > 60.0 (>60); GLUCOSE, FASTING 80 MG/DL (70-100); LIPASE 95 U/L (73-393); POTASSIUM SERUM 4.6 MEQ/L (3.5-5.1); SODIUM LEVEL 138 MEQ/L (136-145); TOTAL PROTEIN 7.6 GM/DL (6.4-8.2)
[2021-07-23] MEDS ORDERED: ONDANSETRON 4 MG ORAL DISINTEGRATING TAB PO ONE (20:25)
[2021-07-23] MEDS ORDERED: ISOVUE-370 76% 100ML VIAL As Ordered ONE (21:00)
[2021-07-23] MEDS ORDERED: ONDA4TAB6 PO (21:35)
[2021-07-23] MEDS ORDERED: MIRA3350 PO (21:35)
[2021-07-23] MEDS ORDERED: RA M1.74 PO (21:35)
== END 2021-07-23 22:04 | disposition home or self-care (01) ==
LOC: M ED 18:18
DX: R11.2 Nausea with vomiting, unspecified (principal); K59.00 Constipation, unspecified; E03.9 Hypothyroidism, unspecified; Z87.442 Personal history of urinary calculi; Z79.899 Other long term (current) drug therapy
CPT/HCPCS: 74177; 80048; 80076; 83036; 83690; 84702; 85025; 87798; 96361; 96374; 96375; 99283; C9113; J2765; Q0162; Q9967